=== PATIENT | male | born 1940 | race Caucasian/White ===

== ENCOUNTER 2018-08-24 15:42 | Inpatient (IN) | payer MEDICAID, MEDICARE ==
[~2018-08-24] VITALS: Ht 170.2 cm; Wt 66.2 kg
[~2018-08-24 15:42] MED LIST: AC325T PO; ALB6.8IN; AMLO5TAB2 PO; BUDE6HFA IH; CEFD300C3 PO; CIPR500T78 PO; DULERA; ERGO80004 PO; FEXO180T PO; FISH OIL 1,2001 EAC1 PO; FLC1T PO; GEMF600T3 PO; GMFB600T; IPRATROPIUM; LIDOCAINE PATCH; LISI20TA PO; LISI5TAB14; MULT-608 PO; MULT-974 PO; MULT1TAB53 PO; NITR100C3 PO; RENA VITE; SIMV20TA3 PO; SYMBICORT; TRM50T PO; VITAMIN B PO
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
--- NOTE | 2018-08-24 15:53 | ED GI ---
General Stated Complaint: HTN Source of Information: Patient Exam Limitations: No Limitations History of Present Illness Date Seen by Provider: Aug 24, 2018 Time Seen by Provider: 15:52 Initial Comments The patient is a 77 year old male who was brought to the emergency room by [facility]. EMS reports that they were dispatched for uncontrollable diarrhea, on arrival the the patient home they found him lying in bed covered in fecal matter. The patient reports that he has been in bed for they past 3 weeks unable to get out of bed due to weakness. He reports diarrhea for the past week. Denies abdominal pain, nausea, or vomiting. He reports that he self caths but has not been able to clean his catheters appropriately due to unable to ambulate like normal. He has dried fecal matter on his lower half and his skin is macerated and has breakdown. (See Images) Vital signs are stable on arrival to ED. EMS infused 1000ml of NS in route to the ED. Timing/Duration: Other (3 weeks) Associated Symptoms: Weakness Allergies and Home Medications Allergies Coded Allergies: iodine (Verified Allergy, Unknown, 03/24/07) Home Medications Amlodipine Besylate 5 Mg Tablet, 5 MG PO DAILY, (Reported) Budesonide/Formoterol Fumarate 10.2 Gm Hfa.aer.ad, 160 PUFF IH BID, (Reported) Folic Acid 1 Mg Tablet, 1 MG PO DAILY, (Reported) Multivitamin 1 Each Tablet, 1 EACH PO DAILY Prescribed by: BEAU MANUEL on 12/07/131713 [vitamin B1 tablet] , 1 TAB PO DAILY Prescribed by: BEAU MANUEL on 12/07/131713 Patient Home Medication List Home Medication List Reviewed: Yes Review of Systems Review of Systems Constitutional: see HPI; No chills, No fever; weakness Gastrointestinal: See HPI, Diarrhea Genitourinary: See HPI, Other (requires self caths ) Musculoskeletal: see HPI, muscle weakness Skin: see HPI, other (soft tissue tenderness to inner thighs ) All Other Systems Reviewed Negative Unless Noted: Yes Past Bypcgsn-Dklqys-Jcbizi Hx Past Med/Social Hx: Reviewed Nursing Past Med/Soc Hx Patient Social History Recent Foreign Travel: No Contact w/Someone Who Travel: No Immunizations Up To Date Date of Pneumonia Vaccine: Sep 09, 2012 Date of Influenza Vaccine: Aug 09, 2013 Past Medical History COPD Reproductive Disorders: No Irritable Bowel Chronic Back Pain Recent Skin Changes Family Medical History Reviewed Nursing Family Hx Family history: Hypertension 03 FATHER 03 MOTHER Stroke 03 MOTHER Physical Exam Vital Signs Vital Signs - First Documented 08/24/18 15:42 Temp 99.0 Pulse 124 Resp 18 B/P (MAP) 136/106 (116) Pulse Ox 95 O2 Delivery Room Air Capillary Refill : Height/Weight/BMI Height: 5'8" Weight: 140lbs. 0.0oz. [id number]; BMI Method: General Appearance: WD/WN, no apparent distress Neck: non-tender, full range of motion, supple, normal inspection Respiratory: chest non-tender, lungs clear, normal breath sounds, no respiratory distress, no accessory muscle use Cardiovascular: normal peripheral pulses, regular rate, rhythm, no edema, no gallop, no JVD, no murmur Gastrointestinal: normal bowel sounds, non tender, soft, no organomegaly, no pulsatile mass Extremities: normal range of motion, non-tender, normal inspection, no pedal edema, no calf tenderness, normal capillary refill, pelvis stable Male: normal genitalia Neurologic/Psychiatric: alert, normal mood/affect, oriented x 3 Skin: other (maceration to inner thighs and buttocks. see images) Focused Exam Lactate Level 08/24/18 16:00: Lactic Acid Level 2.30*H Lactic Acid Level Laboratory Tests Test 08/24/18 16:00 Lactic Acid Level 2.30 MMOL/L (0.50-2.00) *H Progress/Results/Core Measures Results/Orders Lab Results Laboratory Tests Test 08/24/18 16:00 08/24/18 16:04 08/24/18 17:28 Range/Units Prothrombin Time 13.9 12.2-14.7 SEC INR Comment 1.1 0.8-1.4 Activated Partial Thromboplast Time 31 24-35 SEC Lactic Acid Level 2.30 *H 0.50-2.00 MMOL/L White Blood Count 8.8 4.3-11.0 10^3/uL Red Blood Count 3.61 L 4.35-5.85 10^6/uL Hemoglobin 12.4 L 13.3-17.7 G/DL Hematocrit 39 L 40-54 % Mean Corpuscular Volume 107 H 80-99 FL Mean Corpuscular Hemoglobin 34 25-34 PG Mean Corpuscular Hemoglobin Concent 32 32-36 G/DL Red Cell Distribution Width 13.1 10.0-14.5 % Platelet Count 170 130-400 10^3/uL Mean Platelet Volume 9.4 7.4-10.4 FL Neutrophils (%) (Auto) 87 H 42-75 % Lymphocytes (%) (Auto) 4 L 12-44 % Monocytes (%) (Auto) 8 0-12 % Eosinophils (%) (Auto) 0 0-10 % Basophils (%) (Auto) 0 0-10 % Neutrophils # (Auto) 7.7 1.8-7.8 X 10^3 Lymphocytes # (Auto) 0.4 L 1.0-4.0 X 10^3 Monocytes # (Auto) 0.7 0.0-1.0 X 10^3 Eosinophils # (Auto) 0.0 0.0-0.3 10^3/uL Basophils # (Auto) 0.0 0.0-0.1 10^3/uL Neutrophils % (Manual) 78 % Lymphocytes % (Manual) 5 % Monocytes % (Manual) 5 % Eosinophils % (Manual) 0 % Basophils % (Manual) 0 % Band Neutrophils 12 % Blood Morphology Comment NORMAL Sodium Level 140 135-145 MMOL/L Potassium Level 3.4 L 3.6-5.0 MMOL/L Chloride Level 103 98-107 MMOL/L Carbon Dioxide Level 24 21-32 MMOL/L Anion Gap 13 5-14 MMOL/L Blood Urea Nitrogen 44 H 7-18 MG/DL Creatinine 1.13 0.60-1.30 MG/DL Estimat Glomerular Filtration Rate > 60 BUN/Creatinine Ratio 39 Glucose Level 130 H 70-105 MG/DL Calcium Level 9.0 8.5-10.1 MG/DL Corrected Calcium 9.5 8.5-10.1 MG/DL Total Bilirubin 0.7 0.1-1.0 MG/DL Aspartate Amino Transf (AST/SGOT) 119 H 5-34 U/L Alanine Aminotransferase (ALT/SGPT) 75 H 0-55 U/L Alkaline Phosphatase 74 40-136 U/L Total Protein 7.2 6.4-8.2 GM/DL Albumin 3.4 3.2-4.5 GM/DL Urine Color YELLOW Urine Clarity VERY CLOUDY H Urine pH 8 5-9 Urine Specific [place] 1.010 L 1.016-1.022 Urine Protein 3+ H NEGATIVE Urine Glucose (UA) NEGATIVE NEGATIVE Urine Ketones NEGATIVE NEGATIVE Urine Nitrite POSITIVE H NEGATIVE Urine Bilirubin NEGATIVE NEGATIVE Urine Urobilinogen NORMAL NORMAL MG/DL Urine Leukocyte Esterase 3+ H NEGATIVE Urine RBC (Auto) 2+ H NEGATIVE Urine RBC 2-5 H /HPF Urine WBC >100 H /HPF Urine Crystals NONE /LPF Urine Bacteria LARGE H /HPF Urine Casts NONE /LPF Urine Mucus NEGATIVE /LPF Urine Culture Indicated YES My Orders Orders - GLORIA MARY Comprehensive Metabolic Panel (08/24/18 15:53) Ua Culture If Indicated (08/24/18 15:53) Saline Lock/Iv-Start (08/24/18 15:53) Cbc With Automated Diff (08/24/18 15:53) Stool Culture (08/24/18 15:53) Fecal Wbc (08/24/18 15:53) C Difficile Ag + Toxin A/B. (08/24/18 15:53) Blood Culture (08/24/18 16:13) Protime With Inr (08/24/18 16:13) Partial Thromboplastin Time (08/24/18 16:13) Saline Lock/Iv-Start (08/24/18 16:13) Lactic Acid Analyzer (08/24/18 16:13) Fentanyl Injection (Sublimaze Injection (08/24/18 16:15) Manual Differential (08/24/18 16:04) Urine Culture (08/24/18 17:28) Ceftriaxone For Iv Use (Rocephin For I (08/24/18 17:45) Medications Given in ED Current Medications Medications Dose Ordered Sig/Terry Route Start Time Stop Time Status Last Admin Dose Admin Ceftriaxone Sodium 1000 mg/ Sodium Chloride 50 ml @ 100 mls/hr ONCE ONCE IV 08/24/18 17:45 08/24/18 18:14 DC 08/24/18 18:25 100 MLS/HR Fentanyl Citrate 25 mcg ONCE ONCE IVP 08/24/18 16:15 08/24/18 16:16 DC 08/24/18 16:37 25 MCG Vital Signs/I&O 08/24/18 15:42 Temp 99.0 Pulse 124 Resp 18 B/P (MAP) 136/106 (116) Pulse Ox 95 O2 Delivery Room Air 08/25/18 00:00 Intake Total 200 ml Balance 200 ml Progress Progress Note : Time: 17:52 Progress Note I have seen and evaluated the patient. I have spoke to Dr. Flannery at this time and have informed him of laboratory findings. He agrees with plans for admission and use of Rocephin for antibiotic coverage. The patient agrees with plans for admission. Wound care consult and manager social responsibility consults were ordered. Departure Communication (Admissions) Time/Spoke to Admitting Phy: 17:52 Dr. Flannery Impression Primary Impression: Urinary tract infection Additional Impressions: Maceration of skin Inability to perform activities of daily living Disposition: ADMITTED INPATIENT Condition: Stable/Unchanged Admissions Decision to Admit Reason: Admit from ER (General) Decision to Admit/Date: Aug 24, 2018 Time/Decision to Admit Time: 17:53 Departure-Patient Inst. Referrals: RADHA SHI MD (PCP/Family) Primary Care Physician Images Full Body/Extremities Full 1 - Tenderness, Other-See Progress Note 2 - Other-See Progress Note Progress Maceration and breakdown. GLORIA MARY Aug 24, 2018 15:53
[2018-08-24 16:13] LABS: BASOPHILS % (AUTO) 0 % (0-10); EOSINOPHILS % (AUTO) 0 % (0-10); HEMATOCRIT 39 % (40-54); HEMOGLOBIN 12.4 G/DL (13.3-17.7); LYMPHOCYTES # (AUTO) 0.4 X 10^3 (1.0-4.0); LYMPHOCYTES % (AUTO) 4 % (12-44); MEAN CORPUSCULAR HEMOGLOBIN 34 PG (25-34); MEAN CORPUSCULAR HGB CONC 32 G/DL (32-36); MEAN CORPUSCULAR VOLUME 107 FL (80-99); MEAN PLATELET VOLUME 9.4 FL (7.4-10.4); MONOCYTES # (AUTO) 0.7 X 10^3 (0.0-1.0); MONOCYTES % (AUTO) 8 % (0-12); NEUTROPHILS # (AUTO) 7.7 X 10^3 (1.8-7.8); NEUTROPHILS % (AUTO) 87 % (42-75); PLATELET COUNT 170 10^3/uL (130-400); RED BLOOD COUNT 3.61 10^6/uL (4.35-5.85); RED CELL DISTRIBUTION WIDTH 13.1 % (10.0-14.5); WHITE BLOOD COUNT 8.8 10^3/uL (4.3-11.0)
[2018-08-24] MEDS ORDERED: fentaNYL INJECTION 100 MCG/2 ML AMP IVP ONE (16:15)
[2018-08-24 16:31] LABS: ALANINE AMINOTRANSFERASE 75 U/L (0-55); ALBUMIN 3.4 GM/DL (3.2-4.5); ALKALINE PHOSPHATASE 74 U/L (40-136); BAND NEUTROPHILS 12 %; BASOPHILS % (MANUAL) 0 %; BILIRUBIN,TOTAL 0.7 MG/DL (0.1-1.0); BUN/CREATININE RATIO 39; CARBON DIOXIDE 24 MMOL/L (21-32); CHLORIDE 103 MMOL/L (98-107); CREATININE SERUM 1.13 MG/DL (0.60-1.30); EOSINOPHILS % (MANUAL) 0 %; GFR ESTIMATED > 60; GLUCOSE 130 MG/DL (70-105); LYMPHOCYTES % (MANUAL) 5 %; MONOCYTES % (MANUAL) 5 %; NEUTROPHILS % (MANUAL) 78 %; POTASSIUM 3.4 MMOL/L (3.6-5.0); RBC MORPH NORMAL; SODIUM 140 MMOL/L (135-145); TOTAL PROTEIN 7.2 GM/DL (6.4-8.2)
[2018-08-24 16:31] LABS: INR 1.1 (0.8-1.4); PROTHROMBIN TIME PATIENT 13.9 SEC (12.2-14.7)
[2018-08-24 17:34] LABS: BILIRUBIN,URINE NEGATIVE (NEGATIVE); CLARITY,URINE VERY CLOUDY; COLOR,URINE YELLOW; GLUCOSE, URINE (UA) NEGATIVE (NEGATIVE); KETONES,URINE NEGATIVE (NEGATIVE); LEUKOCYTE ESTERASE ,URINE 3+ (NEGATIVE); NITRITE,URINE POSITIVE (NEGATIVE); PH,URINE 8 (5-9); PROTEIN,URINE 3+ (NEGATIVE); UROBILINOGEN,URINE NORMAL (NORMAL)
[2018-08-24 17:40] LABS: BACTERIA,URINE LARGE /HPF; WBC,URINE >100 /HPF
[2018-08-24] MEDS ORDERED: cefTRIAXone FOR IV USE 1,000 MG in NS (IVPB) 50 ML IV ONE (17:45)
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
[2018-08-24 19:00] VITALS: BP 130/94
[2018-08-24] MEDS ORDERED: NS IV 1000 ML 1,000 ML ONE (19:10)
[2018-08-24] MEDS: NS IV 1000 ML 1,000 ML IV SCH (19:24)
[2018-08-24] MEDS ORDERED: CATHETER FLUSH 10 ML SYR IV PRN (19:30)
[2018-08-24] MEDS ORDERED: LORazepam INJ 2 MG/ML (ATIVAN) VIAL IM/IV PRN (22:00)
[2018-08-24] MEDS ORDERED: LORazepam 1 MG (ATIVAN) TAB PO PRN (22:00)
[2018-08-24] MEDS: LORazepam INJ 2 MG/ML (ATIVAN) VIAL IV PRN (22:19)
[2018-08-25] VITALS: BP 137/59
[2018-08-25] MEDS: LORazepam INJ 2 MG/ML (ATIVAN) VIAL IV PRN (01:31)
[2018-08-25] MEDS: NS IV 1000 ML 1,000 ML IV SCH ×2 (04:47→11:13)
[2018-08-25 04:48] VITALS: BP 124/82
[2018-08-25] MEDS ORDERED: FLU QUADRIvalent (5+ YOA) 2018-2019 (AFLURIA) 0.5 ML IM ONE (07:30)
[2018-08-25 08:00] VITALS: BP 135/70
[2018-08-25] MEDS: cefTRIAXone 1 GM/NS 50 ML IVPB IV SCH ×2 (08:11)
[2018-08-25 08:20] LABS: BASOPHILS % (AUTO) 0 % (0-10); EOSINOPHILS # (AUTO) 0.1 10^3/uL (0.0-0.3); EOSINOPHILS % (AUTO) 2 % (0-10); HEMATOCRIT 32 % (40-54); HEMOGLOBIN 10.7 G/DL (13.3-17.7); LYMPHOCYTES # (AUTO) 0.7 X 10^3 (1.0-4.0); LYMPHOCYTES % (AUTO) 12 % (12-44); MEAN CORPUSCULAR HEMOGLOBIN 36 PG (25-34); MEAN CORPUSCULAR HGB CONC 33 G/DL (32-36); MEAN CORPUSCULAR VOLUME 108 FL (80-99); MEAN PLATELET VOLUME 9.2 FL (7.4-10.4); MONOCYTES # (AUTO) 0.7 X 10^3 (0.0-1.0); MONOCYTES % (AUTO) 12 % (0-12); NEUTROPHILS # (AUTO) 4.5 X 10^3 (1.8-7.8); NEUTROPHILS % (AUTO) 74 % (42-75); PLATELET COUNT 134 10^3/uL (130-400); RED CELL DISTRIBUTION WIDTH 12.8 % (10.0-14.5); WHITE BLOOD COUNT 6.1 10^3/uL (4.3-11.0)
[2018-08-25 08:43] LABS: ALANINE AMINOTRANSFERASE 48 U/L (0-55); ALBUMIN 2.9 GM/DL (3.2-4.5); ALKALINE PHOSPHATASE 58 U/L (40-136); BILIRUBIN,TOTAL 0.5 MG/DL (0.1-1.0); BUN/CREATININE RATIO 31; CALCIUM 8.1 MG/DL (8.5-10.1); CARBON DIOXIDE 19 MMOL/L (21-32); CHLORIDE 112 MMOL/L (98-107); GFR ESTIMATED > 60; GLUCOSE 103 MG/DL (70-105); POTASSIUM 3.2 MMOL/L (3.6-5.0); SODIUM 142 MMOL/L (135-145); TOTAL PROTEIN 5.9 GM/DL (6.4-8.2)
[2018-08-25] MEDS ORDERED: HYDR-4196 PO (09:41)
[2018-08-25] MEDS ORDERED: IBUP-30 PO (09:41)
[2018-08-25] MEDS ORDERED: POTASSIUM CHLORIDE INJ 20 MEQ in NS IV 1000 ML 1,000 ML IV SCH (11:16)
--- NOTE | 2018-08-25 11:16 | History & Physical-Hospitalist ---
History of Present Illness HPI/Chief Complaint CC: Sepsis with UTI HPI: This is a 77-year-old white male of Dr. Frye who presented to the ER with altered mental status and not feeling well. He was found to have a UTI with sepsis in addition to right hip ulcerations that were caused by laying in his bowel movement for several days. Apparently he lives at home alone with his dogs and cats and intends to return to home but he will need strengthening and optimized prior to returning to that previous situation. He reports that as long as he definitely on his right side he has no pain. I have reconciled all of his home medications that don't include much except for hydrocodone and ibuprofen. Source: patient, RN/MD Exam Limitations: no limitations Date Seen 08/25/18 Time Seen by a Provider: 10:00 Attending Physician Aj Flannery MD PCP Eder Frye MD Referring Physician Date of Admission Aug 24, 2018 at 18:05 Home Medications & Allergies Home Medications Reviewed patient Home Medication Reconciliation performed by pharmacy medication reconciliations metal technician and/or nursing. Patients Allergies have been reviewed. Allergies Allergies Coded Allergies iodine (Verified Allergy, Unknown, 03/24/07) Past Limowvx-Quxxfi-Gdhagc Hx Past Med/Social Hx: Reviewed Nursing Past Med/Soc Hx, Reviewed and Corrections made Patient Social History Marrital Status: single Employed/Student: retired Alcohol Use: Regular Use Alcohol Beverage of Choice: [place] Recreational Drug Use: No Smoking Status: Former Smoker Former Smoker, Quit: Aug 24, 1978 Type Used: Cigarettes Physical Abuse Screen: No Sexual Abuse: No Recent Foreign Travel: No Contact w/other who traveled: No Recent Hopitalizations: Yes Recent Infectious Disease Expo: No Immunizations Up To Date Date of Pneumonia Vaccine: Sep 09, 2012 Date of Influenza Vaccine: Aug 09, 2013 Past Medical History Surgeries: Orthopedic Cardiac: Hypertension Reproductive: No Genitourinary: Neurogenic Bladder Gastrointestinal: Irritable Bowel Musculoskeletal: Chronic Back Pain Skin/Integumentary: Recent Skin Changes History of Blood Disorders: No Family History Reviewed Nursing Family Hx Family history: Hypertension 03 FATHER 03 MOTHER Stroke 03 MOTHER Hypertension Review of Systems Constitutional: see HPI, chills, fever, weakness EENTM: no symptoms reported Respiratory: no symptoms reported Cardiovascular: no symptoms reported Gastrointestinal: no symptoms reported Genitourinary: no symptoms reported Musculoskeletal: joint pain Skin: no symptoms reported Psychiatric/Neurological: No Symptoms Reported All Other Systems Reviewed Negative Unless Noted: Yes Physical Exam Physical Exam Vital Signs Vital Signs - First Documented 08/24/18 15:42 Temp 99.0 Pulse 124 Resp 18 B/P (MAP) 136/106 (116) Pulse Ox 95 O2 Delivery Room Air Capillary Refill : Less Than 3 Seconds Height, Weight, BMI Height: 5'7.00" Weight: 146lbs. 0.2oz. [id number]; 22.9 BMI Method:Estimated General Appearance: No Apparent Distress, WD/WN, Chronically ill Eyes: Bilateral Eye Normal Inspection, Bilateral Eye PERRL HEENT: PERRL/EOMI, TMs Normal, Normal ENT Inspection, Pharynx Normal Neck: Full Range of Motion, Normal Inspection, Non Tender, Supple, Carotid Bruit Respiratory: Chest Non Tender, Lungs Clear, Normal Breath Sounds, No Accessory Muscle Use, No Respiratory Distress Cardiovascular: Regular Rate, Rhythm, No Edema, No Gallop, No JVD, No Murmur, Normal Peripheral Pulses Gastrointestinal: Normal Bowel Sounds, No Organomegaly, No Pulsatile Mass, Non Tender, Soft Back: Normal Inspection, No CVA Tenderness, No Vertebral Tenderness Extremity: Normal Capillary Refill, Normal Inspection, Normal Range of Motion, Non Tender, No Calf Tenderness, No Pedal Edema Neurologic/Psychiatric: Alert, Oriented x3, No Motor/Sensory Deficits, Depressed Affect Skin: Normal Color, Warm/Dry Lymphatic: No Adenopathy Results Results/Procedures Labs Laboratory Tests 08/24/18 16:04 08/25/18 08:10 Patient resulted labs reviewed. Assessment/Plan Admission Diagnosis Assessment: Sepsis UTI Severe debility Decubitus ulcers of the right hip region due to laying in bowel movement for several days Poor social situation Plan: Home meds IV antibiotics Follow up on urine culture Pain control Admission Status: Inpatient Order (span 2 midnights) Reason for Inpatient Admission: Sepsis with UTI will require IV abx and fluids for 3 days Diagnosis/Problems Diagnosis/Problems (1) Urinary tract infection Status: Acute (2) Inability to perform activities of daily living Status: Acute (3) Maceration of skin Status: Acute (4) Alcohol abuse Status: Chronic (5) Sepsis Status: Resolved Clinical Quality Measures DVT/VTE Risk/Contraindication: Risk Factor Score Per Nursin RFS Level Per Nursing on Admit: 4+=Very High BRADFORD,MERCEDES DO Aug 25, 2018 11:16
[2018-08-25] MEDS ORDERED: NON-FORMULARY MEDICATION 1 EA EA (Ibuprofen (Advil) 400 MG) PO PRN (11:30)
[2018-08-25] MEDS ORDERED: KCL 20 MEQ TAB (K-DUR) PO NR (11:30)
[2018-08-25] MEDS ORDERED: NON-FORMULARY MEDICATION 1 EA EA (Hydrocodone/Acetaminophen (Norco 10-325 Tablet) 1 TAB) PO PRN (11:30)
[2018-08-25] MEDS: ENOXAPARIN 40 MG/0.4 ML (LOVENOX) SYR SC SCH (11:42)
[2018-08-25] MEDS: NS W/KCL 20 MEQ/L 1,000 ML IV SCH ×2 (11:43→18:24)
[2018-08-25] MEDS ORDERED: HYDROcodone/APAP 10 MG/325 MG (LORTAB) TAB PO PRN (11:45)
[2018-08-25] MEDS ORDERED: IBUPROFEN TABLET 200 MG TAB PO PRN (11:45)
--- NOTE | 2018-08-25 11:46 | Physical Therapy Evaluation ---
PT Evaluation-General Medical Diagnosis Admission Date Aug 24, 2018 at 18:05 Medical Diagnosis: UTI, Sepsis Onset Date: Aug 24, 2018 Therapy Diagnosis Therapy Diagnosis: weakness Height/Weight Height (Feet): 5 Height (Inches): 7.00 Weight (Pounds): 146 Weight (Ounces): 0.2 Precautions Precautions/Isolations: Seizure, Fall Prevention, Standard Precautions, Pressure Ulcer potential c-diff Weight Bear Status Right Lower Extremity: Right Full Weight Bearing Left Lower Extremity: Left Full Weight Bearing Referral Physician: Aj Flannery Reason for Referral: Evaluation/Treatment, Strengthening Medical History Pertinent Medical History: Back Injury, COPD Current History Patient has a 3 week history of progressive weakness resulting being bed bound. During this time patient developed uncontrollable diarrhea with resultant skin breakdown. Social History Home: Single Level Current Living Status: Alone Prior/Core FIM Prior Level of Function Functional [place] Measure 0=Not Assessed/NA 4=Minimal Assistance 1=Total Assistance 5=Supervision or Setup 2=Maximal Assistance 6=Modified [place] 3=Moderate Assistance 7=Complete IndependenceIRFPAI Quality Coding Scale 6 Independent with activity with or without an assistive device 5 Patient requires set up or clean up by helper. Patient completes activity by themselves 4 Supervision or touching assist (CGA). Hugo provide cues , steadying assist 3 The helper provides less than half the effort to complete the activity 2 The helper provides more than half the effort to complete the activity 1 Dependent. The helper does all the effort to complete an activity 7 Patient refused to complete or attempt activity 9 The patient did not perform the activity before the current illness or injury 88 Not attempted due to Medical conditions or safety concerns Bed Mobility: 6 Transfers (B,C,W/C) (FIM): 6 Gait: 6 Stairs: 6 pt reports he did get around on his own but was slow PT Evaluation-Current Subjective Pt reports he is starting to feel stronger but is still weak and shaky. He admits that he needs to get stronger and is willing to work with therapy to get there. He desires to return to home. Objective Patient Orientation: Person, Place, Time Problem Solving: Good Attachments: [place]ah Catheter ROM/Strength ROM Upper Extremities WFL ROM Lower Extremities WFL Strength Upper Extremities gross 4/5 Strength Lower Extremities gross 3+/5 Integumentary/Posture Integumentary skin breakdown on both lower glutes and inner thighs Bowel Incontinence: Yes Sensory Vision: Functional Hearing: Functional Transfers Functional [place] Measure 0=Not Assessed/NA 4=Minimal Assistance 1=Total Assistance 5=Supervision or Setup 2=Maximal Assistance 6=Modified [place] 3=Moderate Assistance 7=Complete [place] Transfers (B, C, W/C) (FIM): 4 Scootin Rollin Supine to/from Sit: 5 Sit to/from Stand: 5 Pt able to stand and move in bed with verbal cuing. He is shaking in the upper and lower extremities due to weakness. Gait Mode of Locomotion: Walk Anticipated Mode of Locomotion: Walk Gait (FIM): 2 Distance (FIM): 1=up to 49 ft Distance: 25ft Gait Level of Assist: 4 Gait Persons Needed: 1 Gait Assistive Device: FWW Comments/Gait Description shaky Balance Sitting Static: Fair Sitting Dynamic: Fair Standing Static: Fair Standing Dynamic: Poor Special Test Comments requires UE assist for standing dynamic balance Assessment/Needs Pt is weak due to prolonged inactivity. He has fair baseline strength and is motivated to make gains. Pt will benefit from PT to promote improved strength and functional mobility. Rehab Potential: Good Post Rehab Potential-Barriers: uncontrolled diarrhea limits activity PT [facility] Goals Needle Loom Tender Goals PT [facility] Goals Time Frame: Sep 01, 2018 Transfers (B,C,W/C) (FIM): 6 Gait (FIM): 6 Gait distance (FIM): 3=150 ft Distance: 150 Gait Level of Assist: 6 Gait Assistive Device: FWW # of Steps: 3 Stairs Level Of Assist: 6 PT Plan Problem List Problem List: Activity Tolerance, Functional Strength, Balance, Gait, Transfer , Bed Mobility Treatment/Plan Treatment Plan: Continue Plan of Care Treatment Plan: Bed Mobility, Functional Activity Ana, Functional Strength, Gait, Safety, Therapeutic Exercise, Transfers Treatment Duration: Sep 01, 2018 Frequency: 6 times per week Estimated Hrs Per Day: .25 hour per day Patient and/or Family Agrees t: Yes Safety Risks/Education Patient Education: Gait Training, Steps Teaching Recipient: Patient Time/GCodes Time In: 1100 Time Out: 1130 Total Billed Treatment Time: 30 Total Billed Treatment visit, eval moderate complexity 30 JOAQUIN DEVI PT Aug 25, 2018 11:46
[2018-08-25 12:00] VITALS: BP 141/96
[2018-08-25 16:20] VITALS: BP 143/91
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
[2018-08-25 19:30] VITALS: BP 123/83
[2018-08-26 00:20] VITALS: BP 129/86
[2018-08-26] MEDS: NS W/KCL 20 MEQ/L 1,000 ML IV SCH ×2 (02:12→10:25)
[2018-08-26 04:23] VITALS: BP 135/79
[2018-08-26 06:18] LABS: BASOPHILS % (AUTO) 0 % (0-10); EOSINOPHILS # (AUTO) 0.2 10^3/uL (0.0-0.3); EOSINOPHILS % (AUTO) 4 % (0-10); HEMATOCRIT 30 % (40-54); HEMOGLOBIN 9.4 G/DL (13.3-17.7); LYMPHOCYTES # (AUTO) 0.6 X 10^3 (1.0-4.0); LYMPHOCYTES % (AUTO) 17 % (12-44); MEAN CORPUSCULAR HEMOGLOBIN 34 PG (25-34); MEAN CORPUSCULAR HGB CONC 31 G/DL (32-36); MEAN CORPUSCULAR VOLUME 110 FL (80-99); MEAN PLATELET VOLUME 9.3 FL (7.4-10.4); MONOCYTES # (AUTO) 0.5 X 10^3 (0.0-1.0); MONOCYTES % (AUTO) 13 % (0-12); NEUTROPHILS # (AUTO) 2.5 X 10^3 (1.8-7.8); NEUTROPHILS % (AUTO) 66 % (42-75); PLATELET COUNT 135 10^3/uL (130-400); RED BLOOD COUNT 2.74 10^6/uL (4.35-5.85); WHITE BLOOD COUNT 3.8 10^3/uL (4.3-11.0)
[2018-08-26 06:52] LABS: ALANINE AMINOTRANSFERASE 34 U/L (0-55); ALBUMIN 2.5 GM/DL (3.2-4.5); ALKALINE PHOSPHATASE 59 U/L (40-136); BILIRUBIN,TOTAL 0.4 MG/DL (0.1-1.0); BUN/CREATININE RATIO 17; CALCIUM 7.5 MG/DL (8.5-10.1); CARBON DIOXIDE 19 MMOL/L (21-32); CHLORIDE 114 MMOL/L (98-107); CREATININE SERUM 0.83 MG/DL (0.60-1.30); GFR ESTIMATED > 60; GLUCOSE 102 MG/DL (70-105); POTASSIUM 3.7 MMOL/L (3.6-5.0); SODIUM 141 MMOL/L (135-145); TOTAL PROTEIN 5.3 GM/DL (6.4-8.2)
[2018-08-26] MEDS ORDERED: KCL 20 MEQ TAB (K-DUR) PO SCH (07:00)
[2018-08-26 08:00] VITALS: BP 138/83
[2018-08-26] MEDS: cefTRIAXone 1 GM/NS 50 ML IVPB IV SCH ×2 (08:47)
[2018-08-26] MEDS: ENOXAPARIN 40 MG/0.4 ML (LOVENOX) SYR SC SCH (10:33)
[2018-08-26] MEDS ORDERED: CEFD300C3 PO (10:58)
[2018-08-26] MEDS ORDERED: ENOX40DI8 SC (10:58)
--- NOTE | 2018-08-26 11:01 | Discharge Summary-Hospitalist ---
Diagnosis/Chief Complaint Date of Admission Aug 24, 2018 at 18:05 Date of Discharge Discharge Date: Aug 26, 2018 Admission Diagnosis Assessment: Sepsis UTI Severe debility Decubitus ulcers of the right hip region due to laying in bowel movement for several days Poor social situation Plan: Home meds IV antibiotics Follow up on urine culture Pain control Discharge Diagnosis (1) Urinary tract infection Status: Acute (2) Inability to perform activities of daily living Status: Acute (3) Maceration of skin Status: Acute (4) Alcohol abuse Status: Chronic (5) Sepsis Status: Resolved Discharge Summary Discharge Physical Exam Allergies: Coded Allergies: iodine (Verified Allergy, Unknown, 03/24/07) Vitals & I&Os Vital Signs Date Time Temp Pulse Resp B/P (MAP) Pulse Ox O2 Delivery O2 Flow Rate FiO2 08/26/18 11:26 79 16 138/83 97 Room Air 08/26/18 08:00 99.5 General Appearance: No Apparent Distress, WD/WN, Chronically ill Respiratory: Chest Non Tender, Lungs Clear, Normal Breath Sounds, No Accessory Muscle Use, No Respiratory Distress Cardiovascular: Regular Rate, Rhythm, No Edema, No Gallop, No JVD, No Murmur, Normal Peripheral Pulses Neurologic/Psychiatric: Alert, Oriented x3, No Motor/Sensory Deficits, Depressed Affect Hospital Course Hospital course: Patient was admitted placed on empiric antibiotics for acute on recurrent UTI due to neurogenic bladder and Yeboah catheter was placed and kept in place. Alcohol abuse noted he was placed on protocol. Overall patient had significant poor living conditions he was found to be in need of strengthening in inpatient rehabilitation graciously accepted the patient into the program to strengthen gain confidence and return home back to his pets after a short stay. We'll follow up on urine culture and monitor patient closely in the meantime. Labs (last 24 hrs) Microbiology 08/24/18 Blood Culture - Preliminary, Resulted No growth 08/24/18 Urine Culture - Final, Complete Escherichia coli Escherichia coli#2 Proteus mirabilis Patient resulted labs reviewed. Pending Labs Discussion & Recommendations Discharge Planning: <30 minutes discharge planning Discharge Home Medications: Active Scripts Active Reported [place] 10-325 Tablet (Hydrocodone/Acetaminophen) 1 Each Tablet 1 Tab PO Q4H PRN LAST FILLED #February Advil (Ibuprofen) 200 Mg Tablet 200-400 Mg PO Q6H PRN Instructions to patient/family Please see electronic discharge instructions given to patient. Clinical Quality Measures DVT/VTE Risk/Contraindication: Risk Factor Score Per Nursin RFS Level Per Nursing on Admit: 4+=Very High MERCEDES BRADFORD DO Aug 26, 2018 11:01
[2018-08-26 11:26] VITALS: BP 138/83
[2018-08-26] MEDS ORDERED: ZINC OXIDE 16% OINT (BUTT PASTE) 113 GM TUBE TOP PRN (13:00)
--- NOTE | 2018-08-30 13:09 | Physician Query Clarification ---
PQ-Further Specificity Admission/Discharge Admission Date: Aug 24, 2018 at 18:05 Discharge Date: Aug 26, 2018 at 11:20 The medical record reflects the following clinical scenario: History/Risk Factors: Sepsis/UTI Laying in bowel movement for several days. Clinical Findings: Decubitus ulcers of right hip region(maceration) Treatment: Zinc oxide-Butt paste and nursing care. Question: Can you further specify the stage of decubitus ulcer of the right hip per the clinical indicators above? Please document below. 1. 2. 3. Other, with explanation of the clinical findings. 4. Clinically undetermined, no explanation for the clinical findings. PHYSICIAN RESPONSE Can you specify per above: 1 In responding to this query, please exercise your independent professional judgment. The purpose of this communication is to more accurately reflect the complexity of your patients condition. The fact that a question is asked does not imply that any particular answer is desired or expected. Thank you for your timely response to this clarification. Requestors name: Alfreda Felipe [facility], [facility] Phone # ext [phone] or [phone] THIS PHYSICIAN QUERY FORM IS A PERMANENT PART OF THE MEDICAL RECORD ALFREDA FELIPE Aug 30, 2018 13:09 MERCEDES BRADFORD DO Aug 30, 2018 15:27
== END 2018-08-26 11:20 | DRG 872 ==
LOC: EDUNIT# 15:42 → ER 15:44 → 4TH 18:05
PROVIDERS: ADMIT Internal Medicine; ATTEND Internal Medicine
DX: A41.9 Sepsis, unspecified organism (principal); N39.0 Urinary tract infection, site not specified; R19.7 Diarrhea, unspecified; L89.211 Pressure ulcer of right hip, stage 1; N31.9 Neuromuscular dysfunction of bladder, unspecified; M62.81 Muscle weakness (generalized); I10 Essential (primary) hypertension; J44.9 Chronic obstructive pulmonary disease, unspecified; Z23 Encounter for immunization; K58.9 Irritable bowel syndrome, unspecified; M54.9 Dorsalgia, unspecified; F10.10 Alcohol abuse, uncomplicated; Z87.891 Personal history of nicotine dependence; Z60.2 Problems related to living alone
CPT/HCPCS: 36415; 51702; 80053; 81000; 83605; 85007; 85025; 85027; 85610; 85730; 87040; 87077; 87088; 87186; 90686; 96365; 96375

== ENCOUNTER 2018-08-26 11:00 | Inpatient (IN) | payer MEDICARE ==
[~2018-08-26] VITALS: Ht 170.2 cm; Wt 69.9 kg
[~2018-08-26 11:00] MED LIST changes: +ENOX40DI8 SC; +HYDR-4196 PO; +IBUP-30 PO
[2018-08-26] MEDS ORDERED: LORazepam 1 MG (ATIVAN) TAB PO PRN (12:00)
[2018-08-26] MEDS ORDERED: CATHETER FLUSH 10 ML SYR IV PRN (12:00)
[2018-08-26] MEDS ORDERED: LORazepam INJ 2 MG/ML (ATIVAN) VIAL IM/IV PRN (12:00)
[2018-08-26] MEDS ORDERED: ENOXAPARIN 40 MG/0.4 ML (LOVENOX) SYR SC SCH (12:00)
--- NOTE | 2018-08-26 12:37 | Physical Therapy Evaluation ---
PT Evaluation-General Medical Diagnosis Admission Date Aug 26, 2018 at 11:20 Medical Diagnosis: UTI, Sepsis Onset Date: Aug 24, 2018 Therapy Diagnosis Therapy Diagnosis: weakness; abn gait Height/Weight Height (Feet): 5 Height (Inches): 7.00 Weight (Pounds): 146 Weight (Ounces): 0.2 Precautions Precautions/Isolations: Standard Precautions Weight Bear Status Right Lower Extremity: Right Full Weight Bearing Left Lower Extremity: Left Full Weight Bearing Referral Physician: Jimmy Reason for Referral: Evaluation/Treatment Medical History Pertinent Medical History: Alcoholism, Back Injury, COPD Current History Pt admitted with AMS, UTI and sepsis; also diagnosed with rhabdo. Pt's friend reports a recent decline in functional mobility and ability to care for himself. Reports decreased out of bed time, decreased food intake and increased alcohol consumption. Reviewed History: Yes Social History Home: Single Level (mobile home) Current Living Status: Alone (pt has friends that check in on him as needed) Entry Into Home: Stairs With Railing PT Steps Into Home: 3 Pt lives in a trailer home that he rents and currently does not have electricity. Prior/Core FIM Prior Level of Function Functional [place] Measure 0=Not Assessed/NA 4=Minimal Assistance 1=Total Assistance 5=Supervision or Setup 2=Maximal Assistance 6=Modified [place] 3=Moderate Assistance 7=Complete IndependenceIRFPAI Quality Coding Scale 6 Independent with activity with or without an assistive device 5 Patient requires set up or clean up by helper. Patient completes activity by themselves 4 Supervision or touching assist (CGA). [place] provide cues , steadying assist 3 The helper provides less than half the effort to complete the activity 2 The helper provides more than half the effort to complete the activity 1 Dependent. The helper does all the effort to complete an activity 7 Patient refused to complete or attempt activity 9 The patient did not perform the activity before the current illness or injury 88 Not attempted due to Medical conditions or safety concerns Bed Mobility: 7 Transfers (B,C,W/C) (FIM): 7 Gait: 7 Stairs: 6 Prior Equipment Used: FWW Pt lives alone and has friends that check in on him. He is indep in his home and able to walk short distances in the community. [facility]. PT Evaluation-Current Subjective Agreeable to PT. Reports he is cold and wants to return to bed. Pain Numeric Pain Scale: 0-No Pain Location: No Pain Reported Pt/Family Goals His goal is to return home and care for himself. Objective Patient Orientation: Person, Place, Time, Situation Problem Solving: Fair ROM/Strength ROM Lower Extremities WFL Strenght Lower Extremities B LE strength is grossly 3+/5 Integumentary/Posture Integumentary Refer to nursing notes. Bowel Incontinence: No Bladder Incontinence: Yeboah Cath (pt self caths at home. ) Posture rounded shoulders and flexed at the hips. Neuromuscular (Tone, Coordination, Reflexes) Intact and functional Sensory Vision: Functional Hearing: Functional Hand Dominance: Right Sensation Right Lower Extremit: Intact Sensation Left Lower Extremity: Intact Transfers Functional [place] Measure 0=Not Assessed/NA 4=Minimal Assistance 1=Total Assistance 5=Supervision or Setup 2=Maximal Assistance 6=Modified [place] 3=Moderate Assistance 7=Complete IndependenceIRFPAI Quality Coding Scale 6 Independent with activity with or without an assistive device 5 Patient requires set up or clean up by helper. Patient completes activity by themselves 4 Supervision or touching assist (CGA). [place] provide cues , steadying assist 3 The helper provides less than half the effort to complete the activity 2 The helper provides more than half the effort to complete the activity 1 Dependent. The helper does all the effort to complete an activity 7 Patient refused to complete or attempt activity 9 The patient did not perform the activity before the current illness or injury 88 Not attempted due to Medical conditions or safety concerns Transfers (B, C, W/C) (FIM): 3 Scootin Rollin Roll Left to Right (QC): 4 Supine to/from Sit: 3 (assist with both legs) Sit to/from Stand: 3 (mod assist with skilled cues for hand placement) Sit to Lying (QC): 3 Lying to Sitting/Side of Bed(Q: 4 Sit to Stand (QC): 3 Chair/Mbd-im-Ikims Xfer(QC): 4 Car Transfer (QC): 3 (assist with both legs) Pt is unsteady with upright mobility Gait Does the Patient Walk?: Yes Mode of Locomotion: Walk Anticipated Mode of Locomotion: Walk Gait (FIM): 2 Distance (FIM): 5=688-24 ft Walk 10 feet (QC): 4 Walk 50 ft with 2 Turns(QC): 4 Walk 150 ft (QC): 88 Walking 10ft/uneven surface-QC: 4 Distance: 125 ft Gait Level of Assist: 4 (close CGA for safety) Gait Persons Needed: 1 Gait Assistive Device: FWW Comments/Gait Description Lacks full extension of hips and knees, decreased step length and decreased speed. unsteady, requires CGA for safety. Wheelchair Training Does the Pt Use a Wheelchair?: No Stairs Stairs (FIM): 2 #of Steps: 1 Level of Assist: 4 1 Step (curb) (QC): 4 4 Steps (QC): 88 Assistive Device: Walker 12 Steps (QC): 88 Balance Sitting Static: Fair Sitting Dynamic: Fair Standing Static: Fair Standing Dynamic: Fair Picking up an Object (QC): 88 (unsafe to attempt) Treatment Safety training and work on functional transfers with focus on sequencing and hand placement for safety. Assessment/Needs Pt presents post acute hospital stay due to decline in functional mobility and ability to care for himself at home. He was admitted with sepsis/UTI. He has been transferred to this unit for skilled therapy intervention to work on functional strength and mobility to allow him to return home as before and care for himself. Rehab Potential: Fair Post Rehab Potential-Barriers: alcohol abuse, poor living situation PT Short Term Goals Short Term Goals Time Frame: Sep 02, 2018 Transfers (B,C,W/C) (FIM): 4 Gait (FIM): 4 Distance (FIM): 3=150 ft Gait Assistive Device: FWW PT Correction Goals Car Wash Attendant Goals PT Correction Goals Time Frame: Sep 11, 2018 Transfers (B,C,W/C) (FIM): 7 Sit to Lying (QC): 6 Lying-Sitting on Side/Bed(QC): 6 Sit to Stand (QC): 6 Roll Left to Right (QC): 6 Chair/Gay-ee-Qndcl Xfer(QC): 6 Car Transfer (QC): 6 Does the Patient Walk: Yes Gait (FIM): 6 Gait distance (FIM): 3=150 ft Walk 10 feet (QC): 6 Walk 10ft-Uneven Surface(QC): 6 Walk 50ft with 2 Turns (QC): 6 Walk 150 ft (QC): 6 Gait Assistive Device: FWW Does the Pt use WC or Scooter?: No Stairs (FIM): 5 # of Steps: 4 1 Step (curb) (QC): 6 4 Steps (QC): 6 12 Steps (QC): 88 Picking up an Object (QC): 4 Goal is for patient to be mod indep to indep in his home and care for himself. PT Plan Problem List Problem List: Activity Tolerance, Functional Strength, Safety, Balance, Gait, Transfer, Bed Mobility Treatment/Plan Treatment Plan: Continue Plan of Care Treatment Plan: Bed Mobility, Education, Functional Activity Ana, Functional Strength, Group Therapy, Gait, Safety, Therapeutic Exercise, Transfers Treatment Duration: Sep 11, 2018 Frequency: At least 5 of 7 days/Wk (IRF) Estimated Hrs Per Day: 1.5 hours per day Patient and/or Family Agrees t: Yes Safety Risks/Education Patient Education: Transfer Techniques, Safety Issues Teaching Recipient: Patient Teaching Methods: Demonstration, Discussion Response to Teaching: Reinforcement Needed Discharge Recommendations Therapy D/C Recommendations: Physical Therapy Home Care Time/GCodes Time In: 1140 Time Out: 1220 Total Billed Treatment Time: 40 Total Billed Treatment visit EVM 15 FA 25 KEITH PAREKH PT Aug 26, 2018 12:37
[2018-08-26 13:00] VITALS: BP 146/99
--- OUTSIDE RECORDS SUMMARY | 2018-08-26 13:10 | XMS REPORT | Continuity of Care Document ---
Author Author [facility] Organization [facility] Address Unknown Phone Unavailable Allergies Active Description Code Type Severity Reaction Onset Reported/Identified Relationship to Patient Clinical Status Yes iodine [id number] Drug Allergy Unknown N/A 03/24/2007 Medications There [...] urinalysis with reflex to culture YES NRG Serum or plasma lactate measurement (moles/volume) - 08/24/18 19:00 Serum or plasma lactate measurement (moles/volume) 1.47 mmol/L 0.50-2.00 Encounters ACCT No. Visit Date/Time Discharge Status Pt. Type Provider Facility Loc./Unit Complaint [id number] 01/06/2014 20:19:00 01/06/2014 22:12:00 DIS Emergency TOAN JULIAN [facility] ER [id number] 12/07/2013 16:32:00 12/08/2013 17:13:00 DIS Inpatient RADHA SHI MD [facility] SURGICAL [id number] 12/07/2013 11:02:00 12/07/2013 12:41:00 DIS Outpatient JULIAN JOYA DO [facility] ER BLEEDING FROM PENIS [id number] 11/23/2013 12:10:00 11/23/2013 23:59:59 CLS Outpatient RADHA SHI MD [facility] RAD [id number] 10/29/2013 13:15:00 10/29/2013 23:59:59 CLS Outpatient TYLER AMIN MD [facility] GLC [id number] 09/29/2013 16:14:00 09/30/2013 19:21:00 DIS Inpatient RADHA SHI MD [facility] ICU [id number] 08/24/2018 18:05:00 ACT Inpatient OSVALDO WADDELL MD [facility] 4TH UTI, SEPSIS, MACERATION OF SKIN, [id number] 07/13/2012 10:57:00 Document Registration [id number] 04/01/2012 21:12:00 Document Registration [id number] 06/25/2010 06:36:00 Document Registration [id number] 05/06/2010 09:46:00 Document Registration [id number] 05/02/2010 17:18:00 Document Registration [id number] 05/02/2010 16:40:00 Document Registration [id number] 02/04/2010 08:28:00 Document Registration [id number] 05/13/2018 16:09:47 05/13/2018 23:59:59 CLS Outpatient
[2018-08-26] MEDS: ZINC OXIDE 16% OINT (BUTT PASTE) 113 GM TUBE TOP SCH ×2 (14:18→21:14)
--- NOTE | 2018-08-26 14:58 | Physical Therapy Daily Note ---
PT Daily Note-Current Subjective Pt expresses that he is tired and really wants to lie down. Transfers Functional [place] Measure 0=Not Assessed/NA 4=Minimal Assistance 1=Total Assistance 5=Supervision or Setup 2=Maximal Assistance 6=Modified [place] 3=Moderate Assistance 7=Complete IndependenceIRFPAI Quality Coding Scale 6 Independent with activity with or without an assistive device 5 Patient requires set up or clean up by helper. Patient completes activity by themselves 4 Supervision or touching assist (CGA). [place] provide cues , steadying assist 3 The helper provides less than half the effort to complete the activity 2 The helper provides more than half the effort to complete the activity 1 Dependent. The helper does all the effort to complete an activity 7 Patient refused to complete or attempt activity 9 The patient did not perform the activity before the current illness or injury 88 Not attempted due to Medical conditions or safety concerns Weight Bearing Right Lower Extremity: Right Full Weight Bearing Left Lower Extremity: Left Full Weight Bearing Treatments Treatment consisted of co treat with OT due to level of cues required and skill of 2 clinicians educate and promote functional mobility. Pt ambulated x 120 ft with FWW with CGA and OT addressing safety and UE strength activities. Pt worked on UE strength activities with theraband as PT addressed core strength and static and dynamic balance activities at EOB. Education on ARU expectations and what to expect with daily schedule. Pt verbalized understanding. Assessment Pt fatigued this date and had some difficulty completing full therapy time. PT Short Term Goals Short Term Goals Time Frame: Sep 02, 2018 Transfers (B,C,W/C) (FIM): 4 Gait (FIM): 4 Distance (FIM): 3=150 ft Gait Assistive Device: FWW PT Retirement Goals Lounge Car Attendant Goals PT Retirement Goals Time Frame: Sep 11, 2018 Transfers (B,C,W/C) (FIM): 7 Sit to Lying (QC): 6 Lying-Sitting on Side/Bed(QC): 6 Sit to Stand (QC): 6 Rollin Roll Left to Right (QC): 6 Chair/Lya-hb-Brmfn Xfer(QC): 6 Car Transfer (QC): 6 Does the Patient Walk: Yes Gait (FIM): 6 Gait distance (FIM): 3=150 ft Walk 10 feet (QC): 6 Walk 10ft-Uneven Surface(QC): 6 Walk 50ft with 2 Turns (QC): 6 Walk 150 ft (QC): 6 Gait Assistive Device: FWW Does the Pt use WC or Scooter?: No Stairs (FIM): 5 # of Steps: 4 1 Step (curb) (QC): 6 4 Steps (QC): 6 12 Steps (QC): 88 Picking up an Object (QC): 4 PT Plan Problem List Problem List: Activity Tolerance, Functional Strength, Safety, Balance, Gait, Transfer, Bed Mobility Treatment/Plan Treatment Plan: Continue Plan of Care Treatment Plan: Bed Mobility, Education, Functional Activity Ana, Functional Strength, Group Therapy, Gait, Safety, Therapeutic Exercise, Transfers Treatment Duration: Sep 11, 2018 Frequency: At least 5 of 7 days/Wk (IRF) Estimated Hrs Per Day: 1.5 hours per day Patient and/or Family Agrees t: Yes Time/GCodes Time In: 1420 Time Out: 1440 Total Billed Treatment Time: 20 Total Billed Treatment visit FA 20 KEITH PAREKH PT Aug 26, 2018 14:58
--- NOTE | 2018-08-26 15:27 | Therapy Group Daily Note ---
Therapy Daily Group Note Patient Education Topic Home Safety, Other List Below (Fall Prevention) Exercises LE Seated Exercise, UE Exercise Other/Notes Pt ambulates to PT/OT Group using FWW. Group consists of Introduction (Name, Where you are from and An example of a fall you have had), Socialization, Pt led Seated UE/LE EX, Home Safety & Fall Prevention Techniques. Pt actively participated in Group by leading an exercise, giving personal examples of falls and fall prevention techniques pt has used. Pt interrupted while pt & staff was participating, sometimes over other conversations. At times pt's discussion was off topic. Staff gave redirection for pt to correct. Pt returned to room at end of Group with all needs met. Start Time: 13:00 Stop Time: 14:20 Total Billed Treatment Time: 80 Total Billed Treatment 1, GRP EBAU HAYES VISION TEACHER Aug 26, 2018 15:27
[2018-08-26 16:01] VITALS: BP 145/89
--- NOTE | 2018-08-26 16:15 | Occupational Therapy Eval ---
OT Evaluation-General/PLF Medical Diagnosis Admission Date Aug 26, 2018 at 11:20 Medical Diagnosis: UTI, Sepsis Onset Date: Aug 24, 2018 Therapy Diagnosis Therapy Diagnosis: Weakness Height/Weight Height (Feet): 5 Height (Inches): 7.00 Weight (Pounds): 154 Weight (Ounces): 1.0 Precautions Precautions/Isolations: Fall Prevention, Standard Precautions, Pressure Ulcer Weight Bear Status Weight Bearing Restriction: Weight Bearing/Tolerated Referral Physician: Jimmy Referral Reason: Activity Tolerance, Self Care, Evaluation/Treatment, Strengthening/ROM Medical History Pertinent Medical History: Alcoholism, Back Injury, COPD Current History Pt. fell at home and layed in BM for several days. Found by landlord. Pt. has ulcers on right LE. Reviewed History: Yes Social History Home: Single Level (mobile home) Current Living Status: Alone (pt has friends that check in on him as needed) Entry Into Home: Stairs With Railing Steps Into Home: 3 ADL-Prior Level of Function Functional [place] Measure 0=Not Assessed/NA 4=Minimal Assistance 1=Total Assistance 5=Supervision or Setup 2=Maximal Assistance 6=Modified [place] 3=Moderate Assistance 7=Complete [place] ADL PLOF Comments Pt. reports that he was independent, but unsure of pt's validity. At one point states that he used a walker, but then states that he did not. 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 Self Care Self Care: (Code the patient's need for assistance with bathing, dressing, using the toilet, or eating prior to the current illness, exacerbation, or injury.) Functional Cognition Functional Cognition: (Code the patient's need for assistance with planning regular tasks, such as shopping or remembering to take medicaiton prior to the current illness, exacerbation, or injury.) Pt. reports that he bathes by having his landlord boil water and put in his tub and then he "soaks." OT Current Status Subjective Pt. does not report pain. Appearance Pt. is seen in two treatment sessions. Pt. is alert both times. Mental Status/Objective Patient Orientation: Unable to Assess Attachments: Yeboah Catheter Current Hand Dominance: Right Upper Extremity ROM WFL ADL-Treatment Functional [place] Measure 0=Not Assessed/NA 4=Minimal Assistance 1=Total Assistance 5=Supervision or Setup 2=Maximal Assistance 6=Modified [place] 3=Moderate Assistance 7=Complete IndependenceIRFPAI Quality Coding Scale 6 Independent with activity with or without an assistive device 5 Patient requires set up or clean up by helper. Patient completes activity by themselves 4 Supervision or touching assist (CGA). [place] provide cues , steadying assist 3 The helper provides less than half the effort to complete the activity 2 The helper provides more than half the effort to complete the activity 1 Dependent. The helper does all the effort to complete an activity 7 Patient refused to complete or attempt activity 9 The patient did not perform the activity before the current illness or injury 88 Not attempted due to Medical conditions or safety concerns Lower Body Dressing (FIM): 2 (Pt. is unable to doff or don his socks.) Lower Body Dressing (QC): 2 On/Off Footwear (QC): 2 Transfers (B, C, W/C) (FIM): 2 (Mod assistance for sit-stand and transfer to chair. Min x 2 assist to ambulate approximately 20 feet with walker and chair follow.) Other Treatments At initial evaluation, pt. had just finished showering with nurse Applicasa. Pt. states that he did not want to shower. Pt. is encouraged to ambulate and is able to ambulate with min assist x 2 approximately 20 [address] hallway. Pt. requires encouragement. Transfers to wheelchair and then is able to self propel feet while OT pushes him to rehab area. Pt. is taken to therapy gym. Pt. is educated on therapy goals. Pt. states that he would like to get stronger. PT takes over at this time. OT came back to assist pt. later. At this time, OT/PT co-treated due to pt's fatigue after group therapy session. Sat EOB to work on balance with PT for core strength while OT performed UE strength with theraband. Pt. very limited with what he would do. Would only do a couple of exercises at a time and then begin to talk, get distracted. Becomes agitated if encouraged too much. Pt. is educated again on purpose of rehab and encouraged to do more for self. Pt. states that he wants to go to sleep. Pt. is able to transfer sit-supine with SBA. All needs are met. Education OT Patient Education: Correct positioning, Exercise program, Modified ADL techniques, Progress toward Goal/Update tx plan, Purpose of tx/functional activities, Reviewed precautions, Rehab process, Transfer techniques Teaching Recipient: Patient Teaching Methods: Demonstration, Discussion Response to Teaching: Verbalize Understanding, Return Demonstration OT Short Term Goals Short Term Goals Time Frame: Sep 09, 2018 Eating(FIM): 5 Grooming(FIM): 5 Bathing(FIM): 4 Upper Body Dressing(FIM): 4 Lower Body Dressing(FIM): 3 Toileting(FIM): 4 Transfers (B,C,W/C) (FIM): 4 Toilet/Commode Transfer(FIM): 4 Shower Transfer(FIM): 3 Additional Short Term Goals: 1-Demonstrate ADL Tasks, 2-Verbalize Understanding , 3-ImproveStrength/Ana 1=Demonstrate adherence to instructed precautions during ADL tasks. 2=Patient will verbalize/demonstrate understanding of assistive devices/ modifications for ADL. 3=Patient will improve strength/tolerance for activity to enable patient to perform ADL's. OT Risk Developer Goals Risk Developer Goals Time Frame: Sep 23, 2018 Eating (FIM): 6 Eating (QC): 6 Groomin Oral Hygiene (QC): 6 Bathing(FIM): 5 Shower/Bathe Self (QC): 4 Upper Body Dressing(FIM): 5 Upper Body Dressing (QC): 5 Lower Body Dressing(FIM): 4 Lower Body Dressing (QC): 4 On/Off Footwear (QC): 4 Toileting(FIM): 5 Toileting Hygiene (QC): 5 Transfers (B,C,W/C) (FIM): 6 Toilet/Commode Transfer(FIM): 6 Toilet/Commode Transfer (QC): 6 Shower Transfer(FIM): 5 Additional Goals: 1-Demonstrate ADL Tasks, 2-Verbalize Understanding, 3- ImproveStrength/Ana 1=Demonstrate adherence to instructed precautions during ADL tasks. 2=Patient will verbalize/demonstrate understanding of assistive devices/ modifications for ADL. 3=Patient will improve strength/tolerance for activity to enable patient to perform ADL's. OT Education/Plan Problem List/Assessment Assessment: Decreased Activ Tolerance, Decreased Safety Aware, Decreased UE Strength, Dependent Transfers, Impaired Bed Mobility, Impaired Cognition, Impaired Coordination, Impaired Funct Balance, Impaired I ADL's, Impaired Self- Care Skills, Restricted Funct UE ROM Discharge Recommendations Plan/Recommendations: Continue POC Therapy D/C Recommendations: 24 hr Supervision Comment Discharge goals and equipment needs to be determined. Treatment Plan/Plan of Care Treatment,Training & Education: Yes Patient would benefit from OT for education, treatment and training to promote independence in ADL's, mobility, safety and/or upper extremity function for ADL' s. Plan of Care: ADL Retraining, Functional Mobility, Group Exercise/Act as Ind, UE Funct Exercise/Act Treatment Duration: Sep 23, 2018 Frequency: At least 5 of 7 days/Wk (IRF) Estimated Hrs Per Day: 1.5 hours per day Agreement: Yes Rehab Potential: Fair Time/GCodes Start Time: 11:20 Stop Time: 14:40 Total Time Billed (hr/min): 40 Billed Treatment Time 8532-3662 1, EVH x 20minutes [id number] 1, Ex x 20minutes Co-treat with PT. Please see above for designated roles. JOSE CARLOS OCHOA OT Aug 26, 2018 16:15
--- NOTE | 2018-08-26 18:19 | Wound Care Assessment ---
Wound Care Assessment Date Seen by Provider: Aug 26, 2018 Time Seen by Provider: 15:45 Chief Complaint Perineal rash HPI The patient is a 77 year old male, who was down at home for two days, incontinent, and presented with severe MASD of the perineal area. He has been begun on topical barrier cream, and his wounds are improving. Smoking Status: Former Smoker Review of Systems Neurological: Weakness Exam Vital Signs Date Time Temp Pulse Resp B/P (MAP) Pulse Ox O2 Delivery O2 Flow Rate FiO2 08/26/18 16:01 99.1 87 16 145/89 (107) 96 Room Air Capillary Refill : Respiratory: no respiratory distress Skin: other (Maceration of perineum, severe.) Assessment/Plan/Dx 1. Moisture associated skin Damage, perineum. 2. Urinary incontinence. 3. Debility. Plan; Barrier cream, frequent toileting, urinary drainage as needed. HARI DUMONT MD Aug 26, 2018 18:19
[2018-08-27 05:44] VITALS: BP 160/87
[2018-08-27] MEDS: KCL 20 MEQ TAB (K-DUR) PO SCH (06:53)
[2018-08-27] MEDS: CEFDINIR 300 MG (OMNICEF) CAP PO SCH ×2 (09:51→20:05)
[2018-08-27] MEDS: ZINC OXIDE 16% OINT (BUTT PASTE) 113 GM TUBE TOP SCH ×3 (09:55→20:05)
--- NOTE | 2018-08-27 09:55 | ST Cognitive Linguistic Eval ---
Speech Evaluation-General Medical Diagnosis UTI, Sepsis Onset Date: Aug 24, 2018 Therapy Diagnosis Therapy Diagnosis: Cognition Precautions Precautions/Isolations: Fall Prevention, Standard Precautions Referral Referring Physician: Dr. Marquez Reason for Referral: Evaluation/Treatment Medical History Pertinent Medical History: Alcoholism, Back Injury, COPD Current History Back Injury Reviewed History: Yes Social History Current Living Status: Alone (pt has friends that check in on him as needed) Speech PLF-Current Status Prior Level of Function pt lives in mobile home and was independent Subjective Pt in bed...cooperative Language Eval: Auditory Comprehends Simple Yes/No Ques: Functional Follows 1-Step Commands: Functional Follows Complex Directions: Functional Follows General Conversations: Functional Language Eval: Verbal Language Completes Spontaneous Greeting: Functional Produces Auto, Serial Info: Functional Word Finding: Functional Requests Basic Needs: Functional States Basic Personal Info: Functional Expresses Complex Ideas: Functional Objective Cognitive Domain Attention: WNL Memory: WNL Problem Solving: Functional Objective Results [facility] Cognitive/Communication Assessment was administered to assess cognitive -linguistic functioning. Results are: Orientation - pt oriented x 3 Memory - 3 word recall for immediate was 3/3, Delayed was 2/3 and remote delay was 3/3. Problem Solving - Simple was 4/4 correct; Abstract/complex was 1/2 correct. Speech/language WNL Oral Motor/Speech Production WNL Impression Functional cognitive-linguistic functioning. Communication/Social Cognition Comprehension: 7 Expression: 7 Social Interaction: 7 Problem Solvin Memory: 6 Speech Patient Assess Expression of Ideas/Wants: Expression (4) Understanding Verbal Content: Understands (4) Brief Interview-Mental Status: Yes Repetition of Three Words: Three (3) Temporal Orientation: Year: Correct (3) Temporal Orientation: Month: Accurate within 5 days(2) Temporal Orientation: Day: Correct (1) Recall : Wear to say "Sock": Yes,after cueing (1) Recall : Color: Yes, no cue required (2) Recall : Bed: Yes, no cue required (2) Speech Short Term Goals Short Term Goals Short Term Goals no STGS established as no skilled ST indicated Speech [place] Goals Senior Living Goals No LTGs established as pt does not require skilled ST Speech-Plan Patient/Family Goals Patient/Family Goals: to return home Treatment Plan Speech Therapy Treatment Plan: Discontinue ST Pt does not require skilled ST services Frequency: Modified Program (IRF) (0) Estimated Hrs Per Day: Other (0) Rehab Potential: Fair Pt/Family Agrees to Plan: Yes Safety Risks/Education Teaching Recipient: Patient Teaching Methods: Discussion Response to Teaching: Verbalize Understanding Time Speech Therapy Time In: 09:30 Speech Therapy Time Out: 09:45 Total Billed Time: 15 Billed Treatment Time 1, SPSNDWILBER Snowden Aug 27, 2018 09:55
--- NOTE | 2018-08-27 10:55 | Physical Therapy Daily Note ---
PT Daily Note-Current Subjective Reports he feels a bit nauseated and dizzy. However, once up and moving, reported feeling better. He did require extra encouragement to participate. Pain Numeric Pain Scale: 0-No Pain Location: No Pain Reported Mental Status Patient Orientation: Person, Place, Time, Situation Transfers Functional [place] Measure 0=Not Assessed/NA 4=Minimal Assistance 1=Total Assistance 5=Supervision or Setup 2=Maximal Assistance 6=Modified [place] 3=Moderate Assistance 7=Complete IndependenceIRFPAI Quality Coding Scale 6 Independent with activity with or without an assistive device 5 Patient requires set up or clean up by helper. Patient completes activity by themselves 4 Supervision or touching assist (CGA). [place] provide cues , steadying assist 3 The helper provides less than half the effort to complete the activity 2 The helper provides more than half the effort to complete the activity 1 Dependent. The helper does all the effort to complete an activity 7 Patient refused to complete or attempt activity 9 The patient did not perform the activity before the current illness or injury 88 Not attempted due to Medical conditions or safety concerns Transfers (B, C, W/C) (FIM): 4 Roll Left to Right (QC): 4 Supine to/from Sit: 4 Sit to/from Stand: 4 (skilled cues for hand placement and min assist to come to a stand. ) Sit to Lying (QC): 4 Sit to Stand (QC): 4 toilet transfer with min assist; min assist with wagner care; CGA to stand at the sink to wash his hands. Weight Bearing Right Lower Extremity: Right Full Weight Bearing Left Lower Extremity: Left Full Weight Bearing Gait Training Does the Patient Walk?: Yes Gait (FIM): 2 Distance (FIM): 8=248-54 ft Distance: 50 ft x 5 Gait Assistive Device: FWW slow giat and unsteady; limited distance as well. Exercises Seated Therapy Exercises: Ankle pumps, Sit to stand, Long arc quads, Hip flexion Seated Reps: 15 (to promote LE strength for improved transfers. ) NuStep Minutes: 15 Assessment Current Status: Fair Progress Slow with transfers and gait; incont of BM with standing x 1. Cleaned and toileted. Needs encouragement but does agree to participate. Unsteady with gait today and decreased distance. PT Short Term Goals Short Term Goals Time Frame: Sep 02, 2018 Transfers (B,C,W/C) (FIM): 4 Gait (FIM): 4 Distance (FIM): 3=150 ft Gait Assistive Device: FWW PT Associate Professor Of Kinesiology Goals Shelter Goals PT Shelter Goals Time Frame: Sep 11, 2018 Transfers (B,C,W/C) (FIM): 7 Sit to Lying (QC): 6 Lying-Sitting on Side/Bed(QC): 6 Sit to Stand (QC): 6 Rollin Roll Left to Right (QC): 6 Chair/Zsz-hl-[id number] Xfer(QC): 6 Car Transfer (QC): 6 Does the Patient Walk: Yes Gait (FIM): 6 Gait distance (FIM): 3=150 ft Walk 10 feet (QC): 6 Walk 10ft-Uneven Surface(QC): 6 Walk 50ft with 2 Turns (QC): 6 Walk 150 ft (QC): 6 Gait Assistive Device: FWW Does the Pt use WC or Scooter?: No Stairs (FIM): 5 # of Steps: 4 1 Step (curb) (QC): 6 4 Steps (QC): 6 12 Steps (QC): 88 Picking up an Object (QC): 4 PT Plan Problem List Problem List: Activity Tolerance, Functional Strength, Safety, Balance, Gait, Transfer, Bed Mobility Treatment/Plan Treatment Plan: Continue Plan of Care Treatment Plan: Bed Mobility, Education, Functional Activity Ana, Functional Strength, Group Therapy, Gait, Safety, Therapeutic Exercise, Transfers Treatment Duration: Sep 11, 2018 Frequency: At least 5 of 7 days/Wk (IRF) Estimated Hrs Per Day: 1.5 hours per day Patient and/or Family Agrees t: Yes Safety Risks/Education Patient Education: Transfer Techniques, Safety Issues Teaching Recipient: Patient Teaching Methods: Demonstration, Discussion Response to Teaching: Reinforcement Needed Discharge Recommendations Therapy D/C Recommendations: Physical Therapy Home Care Time/GCodes Time In: 815 Time Out: 915 Total Billed Treatment Time: 60 Total Billed Treatment visit EX 30 GT 15 FA 15 KEITH PAREKH PT Aug 27, 2018 10:55
[2018-08-27] MEDS: ENOXAPARIN 40 MG/0.4 ML (LOVENOX) SYR SC SCH (11:02)
[2018-08-27] MEDS: HYDROcodone/APAP 10 MG/325 MG (LORTAB) TAB PO PRN (11:07)
--- NOTE | 2018-08-27 12:20 | PM&R Post Admission Assessment ---
Post Admission Physician Asses Date seen by provider: Aug 27, 2018 Time seen by provider: 08:20 The preadmission screen agrees with the post admission assessment that the patient is a good candidate for inpatient rehabilitation. The patient will have a comprehensive program of inpatient rehabilitation with a goal of maximizing level of functional independence prior to discharge home with [facility]. The patient will have PT/OT ninety minutes per day, each discipline , five days a week for 2 weeks for gait, strengthening, conditioning, balance, ADLs, any patient/family/caregiver training as necessary. Speech therapy to do cognitive assessment and treat as indicated. Rehabilitation nursing to assist with bowel, bladder, skin, wound care, medication administration, pain management. Tour Leader to assist with discharge planning, community reentry. SCD's for DVT prophylaxis. He appears to be well motivated to participate in three hours of therapy a day. He should be able to tolerate three hours of therapy a day from a medical standpoint. He should benefit from the three hours of therapy a day. He has a reasonable discharge plan, reasonable discharge rehabilitation goals and a supportive family. He has various comorbidities that need to be closely monitored with medications and treatments adjusted on a daily basis as needed. These include: Pressure sores Neurogenic Bladder ETOH abuse [facility] code 03.8 Etiologic DX Disuse myopathy Barriers to discharge for this patient who had been independent prior to this are for him to be modified independent to supervision for ADLs and mobility skills prior to discharge home with [facility], so as to lessen the burden of the caregivers. Risks for this patient include: 1. Fall 2. Fracture 3. DVT 4. Pulmonary embolism 5. Wound infection 6. Skin breakdown 7. Contractures 8. Poorly controlled pain 9. Urinary retention 10. Recurrent UTI 11. Respiratory infection 12. Aspiration Estimated Length of Stay: 14 days Prognosis: Rehab prognosis appears good for goal of discharge home with [facility] modified independent to supervision for ADLs and mobility skills. Date Identified: Aug 27, 2018 Time Identified: 10:00 Action Plan to Resolve CSMI: Transfer meds reviewed General: Alert, Oriented X3, Cooperative, No Acute Distress HEENT: Atraumatic, PERRLA, EOMI, Mucous Memb Moist/[place] Neck: Supple, No JVD Lungs: Clear to Auscultation Heart: Regular Rate Abdomen: Normal Bowel Sounds, Soft, No Tenderness Extremities: No Edema Skin: Other (MASD of the perineal area) Neuro: Other (BL limbs strength 3+5 Sensation intact Strength Both Upper limbs 4/5 Cognition intact) Psych/Mental Status: Mental Status NL PATRIA YAP MD Aug 27, 2018 12:20
--- NOTE | 2018-08-27 12:49 | Occupational Ther Daily Note ---
OT Current Status-Daily Note Subjective No pain reported. Pt. states, "I'm tired and I am going to take a nap." Appearance Pt. in bed. Mental Status/Objective Patient Orientation: Unable to Assess Functional [place] Measure 0=Not Assessed/NA 4=Minimal Assistance 1=Total Assistance 5=Supervision or Setup 2=Maximal Assistance 6=Modified [place] 3=Moderate Assistance 7=Complete [place] ADL-Treatment Functional [place] Measure 0=Not Assessed/NA 4=Minimal Assistance 1=Total Assistance 5=Supervision or Setup 2=Maximal Assistance 6=Modified [place] 3=Moderate Assistance 7=Complete IndependenceIRFPAI Quality Coding Scale 6 Independent with activity with or without an assistive device 5 Patient requires set up or clean up by helper. Patient completes activity by themselves 4 Supervision or touching assist (CGA). [place] provide cues , steadying assist 3 The helper provides less than half the effort to complete the activity 2 The helper provides more than half the effort to complete the activity 1 Dependent. The helper does all the effort to complete an activity 7 Patient refused to complete or attempt activity 9 The patient did not perform the activity before the current illness or injury 88 Not attempted due to Medical conditions or safety concerns Eating (FIM): 5 (Set up to drink shake.) Eating (QC): 4 Grooming (FIM): 5 (Set up to wash hands, wet hair at sink in wheelchair, and comb hair.) Upper Body (FIM): 5 (SBA to don shirt.) Upper Body Dressing (QC): 4 Lower Body Dressing (FIM): 2 (Max assist to thread catheter through pants and then thread pants over feet. Pt. able to stand and hold onto grab bar from toilet and OT pulled over hips and tied pants in front.) Lower Body Dressing (QC): 2 Toileting (FIM): 5 (Pt. does cleanse self on toilet with supervision.) Toileting Hygiene (QC): 4 Transfers (B, C, W/C) (FIM): 3 (Min assist to transfer supine-sit. Mod assist to transfer bed to chair. Pt. declines using walker.) Toilet/Commode Transfer (FIM): 3 Toilet Transfer (QC): 3 Other Treatment Pt. does not want to participate at first. Requires multiple cues and encouragement. Does not understand reason for rehab and goals. States that he wants to take a nap. Does eventually agree and transfers to wheelchair and then to toilet. Dresses on toilet and then back to wheelchair. Self propels wheelchair using feet to therapy gym and completes 10 minutes on armbike at min resistance to increase overall strength. After this task, pt. self propels back to room. Transfers back to bed. All needs met. Education OT Patient Education: Correct positioning, Exercise program, Modified ADL techniques, Progress toward Goal/Update tx plan, Purpose of tx/functional activities, Reviewed precautions, Rehab process, Transfer techniques Teaching Recipient: Patient Teaching Methods: Demonstration, Discussion Response to Teaching: Verbalize Understanding, Return Demonstration OT Short Term Goals Short Term Goals Time Frame: Sep 09, 2018 Eating(FIM): 5 Grooming(FIM): 5 Bathing(FIM): 4 Upper Body Dressing(FIM): 4 Lower Body Dressing(FIM): 3 Toileting(FIM): 4 Transfers (B,C,W/C) (FIM): 4 Toilet/Commode Transfer(FIM): 4 Shower Transfer(FIM): 3 Additional Short Term Goals: 1-Demonstrate ADL Tasks, 2-Verbalize Understanding , 3-ImproveStrength/Ana 1=Demonstrate adherence to instructed precautions during ADL tasks. 2=Patient will verbalize/demonstrate understanding of assistive devices/ modifications for ADL. 3=Patient will improve strength/tolerance for activity to enable patient to perform ADL's. OT Usp Goals Store Operations Specialist Goals Time Frame: Sep 23, 2018 Eating (FIM): 6 Eating (QC): 6 Groomin Oral Hygiene (QC): 6 Bathing(FIM): 5 Shower/Bathe Self (QC): 4 Upper Body Dressing(FIM): 5 Upper Body Dressing (QC): 5 Lower Body Dressing(FIM): 4 Lower Body Dressing (QC): 4 On/Off Footwear (QC): 4 Toileting(FIM): 5 Toileting Hygiene (QC): 5 Transfers (B,C,W/C) (FIM): 6 Toilet/Commode Transfer(FIM): 6 Toilet/Commode Transfer (QC): 6 Shower Transfer(FIM): 5 Additional Goals: 1-Demonstrate ADL Tasks, 2-Verbalize Understanding, 3- ImproveStrength/Ana 1=Demonstrate adherence to instructed precautions during ADL tasks. 2=Patient will verbalize/demonstrate understanding of assistive devices/ modifications for ADL. 3=Patient will improve strength/tolerance for activity to enable patient to perform ADL's. OT Education/Plan Problem List/Assessment Assessment: Decreased Activ Tolerance, Decreased Safety Aware, Decreased UE Strength, Dependent Transfers, Impaired Bed Mobility, Impaired Cognition, Impaired Coordination, Impaired Funct Balance, Impaired I ADL's, Impaired Self- Care Skills, Restricted Funct UE ROM Discharge Recommendations Plan/Recommendations: Continue POC Therapy D/C Recommendations: 24 hr Supervision Comment Equipment needs and discharge location to be determined. Treatment Plan/Plan of Care Treatment,Training & Education: Yes Patient would benefit from OT for education, treatment and training to promote independence in ADL's, mobility, safety and/or upper extremity function for ADL' s. Plan of Care: ADL Retraining, Functional Mobility, Group Exercise/Act as Ind, UE Funct Exercise/Act Treatment Duration: Sep 23, 2018 Frequency: At least 5 of 7 days/Wk (IRF) Estimated Hrs Per Day: 1.5 hours per day Agreement: Yes Rehab Potential: Fair Time/GCodes Start Time: 10:00 Stop Time: 11:00 Total Time Billed (hr/min): 60 Billed Treatment Time 1, ADL x 30minutes, Ex x 30minutes JOSE CARLOS OCHOA OT Aug 27, 2018 12:49
--- NOTE | 2018-08-27 13:10 | HISTORY AND PHYSICAL ---
DATE OF SERVICE: 08-27-18 ADMISSION HISTORY AND PHYSICAL CHIEF COMPLAINT: Difficulty with walking. HISTORY OF PRESENT ILLNESS: The patient is a 77-year-old male, who lives alone in a trailer in [place], [place] and has a past medical history significant for a back injury, COPD, ethanol abuse and neurogenic bladder, who does his own self cathing at home, who was admitted to [facility] via the ED after he presented with skin breakdown after being down in his mobile home for a while. He was found to have a UTI and sepsis, this was treated. He was seen by wound care physician, Dr. López. He had been independent prior to this, but currently requires assistance for his ADLs and mobility skills. He is min assist for transfers and gait with a front wheel walker. He is max assist for lower body dressing. He is independent for eating; min assist for upper body dressing, bladder is currently managed with indwelling Yeboah catheter. He is reported to be continent of bowel. PAST MEDICAL HISTORY: Chronic back pain, COPD, ethanol abuse and neurogenic bladder. PCP is Dr. Cantu. He is being cared for by Dr. Cool, hospitalist while inpatient. He apparently fell at home and laid in his bowel movement for several days and was found by his landlord. PAST SURGICAL HISTORY: As per above. ALLERGIES: IODINE. FAMILY HISTORY: Noncontributory. SOCIAL HISTORY: He is legally . History of ethanol abuse. Retired production truck driver. REVIEW OF SYSTEMS: A 10-point review of systems is significant for weakness and neurogenic bladder. MEDICATIONS: Lovenox 40 mg subq daily, Omnicef 300 mg p.o. b.i.d., K-Dur 20 mEq p.o. daily, zinc oxide applied to the right eye t.i.d., hydrocodone/APAP 10 one tablet p.o. q.4 hours p.r.n. moderate pain and ibuprofen 400 mg p.o. q.6 hours p.r.n. mild pain. PHYSICAL EXAMINATION: GENERAL: Significant for a male appearing his stated age, sitting in a wheelchair, in no acute distress. VITAL SIGNS: He is afebrile, pulse is 77, respirations 18, blood pressure 160/87 and O2 sat 97% on room air. HEENT: Vision, speech and hearing grossly intact. No oral lesion is noted. NECK: Supple without mass. HEART: Regular rhythm. CHEST: Clear. ABDOMEN: Soft and nontender. Bowel sounds are present. EXTREMITIES: No lower leg edema and no calf tenderness. SKIN: He has MASD of the perineal area and has topical barrier cream for that. MUSCULOSKELETAL: He has functional active range of motion in all 4 limbs. NEUROLOGIC: Sensation is grossly intact to touch. Strength in lower limbs is 3+/5 and upper limbs 4/5. GENITOURINARY: Indwelling Yeboah catheter to dependent drainage. IMPRESSION: 1. 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 2. Pressure sore being cared for by Dr. López. 3. History of ethanol abuse. 4. Neurogenic bladder managed with intermittent catheterization at home, currently with indwelling Yeboah catheter. 5. Deep vein thrombosis prophylaxis, on Lovenox subq. 6. Hypokalemia, on potassium. PLAN: The patient will have a comprehensive program of inpatient rehabilitation with goal of maximizing level of functional independence prior to discharge home with home health care. The patient will have PT, OT 90 minutes per day each discipline 5 days a week for 2 weeks with the above goals in mind. Please see post-admission physician evaluation, which is separate document for details of plan of care. Speech therapy to do cognitive assessment and treat as indicated. Rehabilitation nursing to assist with bowel, bladder, skin, wound care, medication administration and pain management. Social service to assist with discharge planning, community reentry. Follow up with Dr. Cool and Dr. López as per their schedule and switch back to intermittent catheterization program when the patient is able. Consider behavioral health consult regarding history of ethanol abuse. ESTIMATED LENGTH OF STAY: Two weeks. PROGNOSIS: Rehab prognosis appears good for goal of discharging back to mobile home, modified independent for ADLs and mobility skills. An assisted living facility setting would be ideal if the patient is agreeable and able to look forward or if there is family that can assist him at home. DIET: Regular. CODE STATUS: Full code. Job ID: [id number] DocumentID: [id number] Dictated Date: 08/27/2018 12:35:33 Ethylene Oxide Panelboard Operator Date: 08/27/2018 13:09:55 Dictated By: PATRIA YAP MD [facility]
--- NOTE | 2018-08-27 14:37 | Therapy Group Daily Note ---
Therapy Daily Group Note Patient Education Topic Energy Cons, Exercises, Other List Below Exercises LE Seated Exercise, UE Exercise Other/Notes Pt was an active participant in OT/PT group. He introduced himself and shared his favorite Halloween memory. He contributed to discussion/education on activity tolerance and energy conservation and also education/discussion on benefits of exercise. He did seated UE and LE exercises with encouragement. He was at times a little inappropriate, interrupted others as they spoke. He started to walk back to his room without assistance and was left up his room, all needs met. Start Time: 13:00 Stop Time: 14:10 Total Billed Treatment Time: 70 Total Billed Treatment visit, 70 minutes group MOHAN BRICEÑO OT Aug 27, 2018 14:37
[2018-08-27 15:33] VITALS: BP 166/84
[2018-08-28 06:00] VITALS: BP 160/68
[2018-08-28] MEDS: KCL 20 MEQ TAB (K-DUR) PO SCH (06:28)
--- NOTE | 2018-08-28 08:02 | PM & R (SOAP) Progress Note ---
Subjective This was a face to face visit with the patient. Date Seen by Provider: Aug 28, 2018 Time Seen by Provider: 07:30 Subjective/Events-last exam Patient was seen in his room this AM Patient Min assist for transfers Objective Physician Exam Last Set of Vital Signs Vital Signs Date Time Temp Pulse Resp B/P (MAP) Pulse Ox O2 Delivery O2 Flow Rate FiO2 08/28/18 06:00 98.0 70 18 160/68 (98) 97 Room Air Capillary Refill : I&O Intake and Output 08/28/18 00:00 Intake Total 1190 ml Output Total 2700 ml Balance -1510 ml Intake Oral 1190 ml Output Urine Total 2700 ml # Bowel Movements 2 General: Alert, Oriented X3, Cooperative, No Acute Distress HEENT: Atraumatic, PERRLA, EOMI, Mucous Memb Moist/[place] Neck: Supple, No JVD Lungs: Clear to Auscultation Heart: Regular Rate Abdomen: Normal Bowel Sounds, Soft, No Tenderness Extremities: No Edema Skin: Other (MASD of the perineal area) Neuro: Other (BL limbs strength 3+5 Sensation intact Strength Both Upper limbs 4/5 Cognition intact) Psych/Mental Status: Mental Status NL Assessment/Plan Assessment and Plan 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
[2018-08-28] MEDS: CEFDINIR 300 MG (OMNICEF) CAP PO SCH ×2 (08:43→20:58)
[2018-08-28] MEDS: ZINC OXIDE 16% OINT (BUTT PASTE) 113 GM TUBE TOP SCH ×3 (08:43→20:58)
[2018-08-28] MEDS: HYDROcodone/APAP 10 MG/325 MG (LORTAB) TAB PO PRN ×2 (09:11→20:58)
--- NOTE | 2018-08-28 10:29 | Physical Therapy Daily Note ---
PT Daily Note-Current Subjective Patient in bed pre tx, agrees to PT, has pain in right arm, unrated. Appearance Patient BTB post tx with nurse call, phone, tray, all needs met. Mental Status Patient Orientation: Normal For Age Transfers Functional [place] Measure 0=Not Assessed/NA 4=Minimal Assistance 1=Total Assistance 5=Supervision or Setup 2=Maximal Assistance 6=Modified [place] 3=Moderate Assistance 7=Complete IndependenceIRFPAI Quality Coding Scale 6 Independent with activity with or without an assistive device 5 Patient requires set up or clean up by helper. Patient completes activity by themselves 4 Supervision or touching assist (CGA). [place] provide cues , steadying assist 3 The helper provides less than half the effort to complete the activity 2 The helper provides more than half the effort to complete the activity 1 Dependent. The helper does all the effort to complete an activity 7 Patient refused to complete or attempt activity 9 The patient did not perform the activity before the current illness or injury 88 Not attempted due to Medical conditions or safety concerns Transfers (B, C, W/C) (FIM): 5 Scootin Rollin Supine to/from Sit: 5 Sit to/from Stand: 5 Bed to/from Chair: 5 Weight Bearing Right Lower Extremity: Right Full Weight Bearing Left Lower Extremity: Left Full Weight Bearing Gait Training Gait (FIM): 2 Distance: 60'x2 Gait Level of Assist: 5 Gait Persons Needed: 1 Gait Assistive Device: FWW During ambulation especially on the way back to his room, patient was SOB and very shaky. Patient required a seated rest break between bouts of ambulation. Treatments bed mobility and transfers, ambulation Assessment Current Status: Fair Progress SOB and shaky with exertion PT Short Term Goals Short Term Goals Time Frame: Sep 02, 2018 Transfers (B,C,W/C) (FIM): 4 Gait (FIM): 4 Distance (FIM): 3=150 ft Gait Assistive Device: FWW PT Machine Adjuster Leader Case Trim Goals Machine Adjuster Leader Case Trim Goals PT Long-Term Goals Time Frame: Sep 11, 2018 Transfers (B,C,W/C) (FIM): 7 Sit to Lying (QC): 6 Lying-Sitting on Side/Bed(QC): 6 Sit to Stand (QC): 6 Rollin Roll Left to Right (QC): 6 Chair/Mpw-gz-Qrhrf Xfer(QC): 6 Car Transfer (QC): 6 Does the Patient Walk: Yes Gait (FIM): 6 Gait distance (FIM): 3=150 ft Walk 10 feet (QC): 6 Walk 10ft-Uneven Surface(QC): 6 Walk 50ft with 2 Turns (QC): 6 Walk 150 ft (QC): 6 Gait Assistive Device: FWW Does the Pt use WC or Scooter?: No Stairs (FIM): 5 # of Steps: 4 1 Step (curb) (QC): 6 4 Steps (QC): 6 12 Steps (QC): 88 Picking up an Object (QC): 4 PT Plan Problem List Problem List: Activity Tolerance, Functional Strength, Safety, Balance, Gait, Transfer, Bed Mobility Treatment/Plan Treatment Plan: Continue Plan of Care Treatment Plan: Bed Mobility, Education, Functional Activity Ana, Functional Strength, Group Therapy, Gait, Safety, Therapeutic Exercise, Transfers Treatment Duration: Sep 11, 2018 Frequency: At least 5 of 7 days/Wk (IRF) Estimated Hrs Per Day: 1.5 hours per day Patient and/or Family Agrees t: Yes Safety Risks/Education Patient Education: Gait Training, Transfer Techniques, Correct Positioning, Safety Issues Teaching Recipient: Patient Teaching Methods: Demonstration, Discussion Response to Teaching: Reinforcement Needed Time/GCodes Time In: 1015 Time Out: 1027 Total Billed Treatment Time: 12 Total Billed Treatment 1 visit GT BEKAH SANDOVAL PT Aug 28, 2018 10:29
[2018-08-28] MEDS: ENOXAPARIN 40 MG/0.4 ML (LOVENOX) SYR SC SCH (12:12)
[2018-08-28 18:51] VITALS: BP 147/92
[2018-08-29 05:21] VITALS: BP 148/80
[2018-08-29] MEDS: KCL 20 MEQ TAB (K-DUR) PO SCH (06:09)
[2018-08-29] MEDS: HYDROcodone/APAP 10 MG/325 MG (LORTAB) TAB PO PRN (06:09)
[2018-08-29] MEDS: CEFDINIR 300 MG (OMNICEF) CAP PO SCH ×2 (09:00→21:06)
[2018-08-29] MEDS: IBUPROFEN TABLET 200 MG TAB PO PRN (09:01)
[2018-08-29] MEDS: ZINC OXIDE 16% OINT (BUTT PASTE) 113 GM TUBE TOP SCH ×3 (09:02→21:07)
[2018-08-29] MEDS: ENOXAPARIN 40 MG/0.4 ML (LOVENOX) SYR SC SCH (11:42)
[2018-08-29 17:30] VITALS: BP 121/87
[2018-08-29] MEDS: CALCIUM CARBONATE 500 MG (TUMS) TAB.CHEW PO PRN (22:35)
[2018-08-30 05:35] VITALS: BP 120/74
[2018-08-30] MEDS: KCL 20 MEQ TAB (K-DUR) PO SCH (07:49)
[2018-08-30] MEDS: CEFDINIR 300 MG (OMNICEF) CAP PO SCH ×2 (08:59→21:25)
[2018-08-30] MEDS: ZINC OXIDE 16% OINT (BUTT PASTE) 113 GM TUBE TOP SCH ×3 (09:04→21:26)
--- NOTE | 2018-08-30 10:18 | Occupational Ther Daily Note ---
OT Current Status-Daily Note Subjective Pt in bed and agreeable to therapy, however pt stated that he was not feeling well this morning and sick to his stomach. Mental Status/Objective Functional [place] Measure 0=Not Assessed/NA 4=Minimal Assistance 1=Total Assistance 5=Supervision or Setup 2=Maximal Assistance 6=Modified [place] 3=Moderate Assistance 7=Complete [place] ADL-Treatment Functional [place] Measure 0=Not Assessed/NA 4=Minimal Assistance 1=Total Assistance 5=Supervision or Setup 2=Maximal Assistance 6=Modified [place] 3=Moderate Assistance 7=Complete IndependenceIRFPAI Quality Coding Scale 6 Independent with activity with or without an assistive device 5 Patient requires set up or clean up by helper. Patient completes activity by themselves 4 Supervision or touching assist (CGA). [place] provide cues , steadying assist 3 The helper provides less than half the effort to complete the activity 2 The helper provides more than half the effort to complete the activity 1 Dependent. The helper does all the effort to complete an activity 7 Patient refused to complete or attempt activity 9 The patient did not perform the activity before the current illness or injury 88 Not attempted due to Medical conditions or safety concerns Grooming (FIM): 5 Bathing (FIM): 4 (Pt agreeable to sponge bath, and required Luis Enrique for back and buttocks region.) Upper Body (FIM): 5 Lower Body Dressing (FIM): 2 (Pt requires MaxA to thread catheter through pant legs, and required MaxA to richard pants over hips.) Toileting (FIM): 2 (Pt required MaxA to manage clothing over hips, and MaxA for hygiene following BM.) Transfers (B, C, W/C) (FIM): 4 (CGA for all transfers.) Other Treatment Pt participated in minimal BUE ther ex with 2# free weight, as he stated that his shoulders are painful. Pt agreeable to participate in ball work with 1# wrist weights to address strengthening, gross motor coordination, and cardiopulmonary capacity. Education OT Patient Education: Correct positioning, Modified ADL techniques, Reviewed precautions, Safety issues, Transfer techniques Teaching Recipient: Patient Teaching Methods: Demonstration, Discussion OT Short Term Goals Short Term Goals Time Frame: Sep 09, 2018 Eating(FIM): 5 Grooming(FIM): 5 Bathing(FIM): 4 Upper Body Dressing(FIM): 4 Lower Body Dressing(FIM): 3 Toileting(FIM): 4 Transfers (B,C,W/C) (FIM): 4 Toilet/Commode Transfer(FIM): 4 Shower Transfer(FIM): 3 Additional Short Term Goals: 1-Demonstrate ADL Tasks, 2-Verbalize Understanding , 3-ImproveStrength/Ana 1=Demonstrate adherence to instructed precautions during ADL tasks. 2=Patient will verbalize/demonstrate understanding of assistive devices/ modifications for ADL. 3=Patient will improve strength/tolerance for activity to enable patient to perform ADL's. OT Mcc Goals Mcc Goals Time Frame: Sep 23, 2018 Eating (FIM): 6 Eating (QC): 6 Groomin Oral Hygiene (QC): 6 Bathing(FIM): 5 Shower/Bathe Self (QC): 4 Upper Body Dressing(FIM): 5 Upper Body Dressing (QC): 5 Lower Body Dressing(FIM): 4 Lower Body Dressing (QC): 4 On/Off Footwear (QC): 4 Toileting(FIM): 5 Toileting Hygiene (QC): 5 Transfers (B,C,W/C) (FIM): 6 Toilet/Commode Transfer(FIM): 6 Toilet/Commode Transfer (QC): 6 Shower Transfer(FIM): 5 Additional Goals: 1-Demonstrate ADL Tasks, 2-Verbalize Understanding, 3- ImproveStrength/Ana 1=Demonstrate adherence to instructed precautions during ADL tasks. 2=Patient will verbalize/demonstrate understanding of assistive devices/ modifications for ADL. 3=Patient will improve strength/tolerance for activity to enable patient to perform ADL's. OT Education/Plan Problem List/Assessment Assessment: Decreased Activ Tolerance, Decreased Safety Aware, Decreased UE Strength, Impaired Coordination, Impaired Funct Balance Discharge Recommendations Plan/Recommendations: Continue POC Treatment Plan/Plan of Care Patient would benefit from OT for education, treatment and training to promote independence in ADL's, mobility, safety and/or upper extremity function for ADL' s. Plan of Care: ADL Retraining, Functional Mobility, Group Exercise/Act as Ind, UE Funct Exercise/Act Treatment Duration: Sep 23, 2018 Frequency: At least 5 of 7 days/Wk (IRF) Estimated Hrs Per Day: 1.5 hours per day Agreement: Yes Rehab Potential: Fair Time/GCodes Start Time: 09:00 Stop Time: 10:00 Total Time Billed (hr/min): 60 Billed Treatment Time ADL3, Therapeutic exercise1 JARRET POWELL OT Aug 30, 2018 10:18
--- NOTE | 2018-08-30 11:42 | Physical Therapy Daily Note ---
PT Daily Note-Current Subjective Patient in bed pre tx, agrees reluctantly to PT, has pain of 8/10 headache. Patient states he feels sick and is not sure how much PT he can do. Appearance Patient BTB post tx with nurse call,phone, tray, all needs met. Mental Status Patient Orientation: Person, Place, Situation Transfers Functional [place] Measure 0=Not Assessed/NA 4=Minimal Assistance 1=Total Assistance 5=Supervision or Setup 2=Maximal Assistance 6=Modified [place] 3=Moderate Assistance 7=Complete IndependenceIRFPAI Quality Coding Scale 6 Independent with activity with or without an assistive device 5 Patient requires set up or clean up by helper. Patient completes activity by themselves 4 Supervision or touching assist (CGA). [place] provide cues , steadying assist 3 The helper provides less than half the effort to complete the activity 2 The helper provides more than half the effort to complete the activity 1 Dependent. The helper does all the effort to complete an activity 7 Patient refused to complete or attempt activity 9 The patient did not perform the activity before the current illness or injury 88 Not attempted due to Medical conditions or safety concerns Transfers (B, C, W/C) (FIM): 5 Scootin Rollin Supine to/from Sit: 5 Sit to/from Stand: 5 Bed to/from Chair: 5 Patient has a tendency to not turn completely when sitting and sit a little too close to the edge. Needs cues for safety and positioning. Weight Bearing Right Lower Extremity: Right Full Weight Bearing Left Lower Extremity: Left Full Weight Bearing Gait Training Patient refused to ambulate Wheelchair Training Does the Pt Use a Wheelchair?: Yes Wheelchair (FIM): 5 Distance: 150'x2 Wheelchair Level of Assist: 5 Type of Wheelchair: Manual Patient uses arms and both legs to propel. Exercises NuStep Minutes: 15 NuStep Workload: 5 Treatments bed mobility, transfers, functional strengthening, wheelchair mobility Assessment Current Status: Poor Progress Patient is ill and refused to continue therapy after the NuStep, he propels his wheelchair back to the room and gets into bed. Patient states that he has a headache, is nauseated and is having dizziness. Nurse notified. PT Short Term Goals Short Term Goals Time Frame: Sep 02, 2018 Transfers (B,C,W/C) (FIM): 4 Gait (FIM): 4 Distance (FIM): 3=150 ft Gait Assistive Device: FWW PT Intermediate Goals Entry Level Lab Technician Goals PT Entry Level Lab Technician Goals Time Frame: Sep 11, 2018 Transfers (B,C,W/C) (FIM): 7 Sit to Lying (QC): 6 Lying-Sitting on Side/Bed(QC): 6 Sit to Stand (QC): 6 Rollin Roll Left to Right (QC): 6 Chair/Eed-br-Wqdrv Xfer(QC): 6 Car Transfer (QC): 6 Does the Patient Walk: Yes Gait (FIM): 6 Gait distance (FIM): 3=150 ft Walk 10 feet (QC): 6 Walk 10ft-Uneven Surface(QC): 6 Walk 50ft with 2 Turns (QC): 6 Walk 150 ft (QC): 6 Gait Assistive Device: FWW Does the Pt use WC or Scooter?: No Stairs (FIM): 5 # of Steps: 4 1 Step (curb) (QC): 6 4 Steps (QC): 6 12 Steps (QC): 88 Picking up an Object (QC): 4 PT Plan Problem List Problem List: Activity Tolerance, Functional Strength, Safety, Balance, Gait, Transfer, Bed Mobility, ROM Treatment/Plan Treatment Plan: Continue Plan of Care Treatment Plan: Bed Mobility, Education, Functional Activity Ana, Functional Strength, Group Therapy, Gait, Safety, Therapeutic Exercise, Transfers Treatment Duration: Sep 11, 2018 Frequency: At least 5 of 7 days/Wk (IRF) Estimated Hrs Per Day: 1.5 hours per day Patient and/or Family Agrees t: Yes Safety Risks/Education Patient Education: Transfer Techniques, Correct Positioning, W/C Management, Safety Issues Teaching Recipient: Patient Teaching Methods: Demonstration, Discussion Response to Teaching: Reinforcement Needed Time/GCodes Time In: 1100 Time Out: 1145 Total Billed Treatment Time: 45 Total Billed Treatment 1 visit EX 15' WCH 20' FA 10 BEKAH MALONE PT Aug 30, 2018 11:42
[2018-08-30] MEDS: ENOXAPARIN 40 MG/0.4 ML (LOVENOX) SYR SC SCH (11:47)
[2018-08-30] MEDS: IBUPROFEN TABLET 200 MG TAB PO PRN (11:51)
--- NOTE | 2018-08-30 12:10 | Occupational Ther Daily Note ---
OT Current Status-Daily Note Subjective Pt in bed and required a significant amount of encouragement to participate with second session of OT this date as pt stated that he "has a headache and doesn't want to do anything." With pt education and encouragement, the pt was willing to participate in light UE ther ex. Mental Status/Objective Functional [place] Measure 0=Not Assessed/NA 4=Minimal Assistance 1=Total Assistance 5=Supervision or Setup 2=Maximal Assistance 6=Modified [place] 3=Moderate Assistance 7=Complete [place] ADL-Treatment Functional [place] Measure 0=Not Assessed/NA 4=Minimal Assistance 1=Total Assistance 5=Supervision or Setup 2=Maximal Assistance 6=Modified [place] 3=Moderate Assistance 7=Complete IndependenceIRFPAI Quality Coding Scale 6 Independent with activity with or without an assistive device 5 Patient requires set up or clean up by helper. Patient completes activity by themselves 4 Supervision or touching assist (CGA). [place] provide cues , steadying assist 3 The helper provides less than half the effort to complete the activity 2 The helper provides more than half the effort to complete the activity 1 Dependent. The helper does all the effort to complete an activity 7 Patient refused to complete or attempt activity 9 The patient did not perform the activity before the current illness or injury 88 Not attempted due to Medical conditions or safety concerns Other Treatment Pt participated in BUE ther ex with use of red theraband through gross UE planes of motion, 1x10 reps this date. Pt educated on importance of participation with skilled therapy services, and educated on proper movements through UE movement patterns. UE ther ex completed to improve his overall strength and muscle endurance required for ADLs and IADLs. OT Short Term Goals Short Term Goals Time Frame: Sep 09, 2018 Eating(FIM): 5 Grooming(FIM): 5 Bathing(FIM): 4 Upper Body Dressing(FIM): 4 Lower Body Dressing(FIM): 3 Toileting(FIM): 4 Transfers (B,C,W/C) (FIM): 4 Toilet/Commode Transfer(FIM): 4 Shower Transfer(FIM): 3 Additional Short Term Goals: 1-Demonstrate ADL Tasks, 2-Verbalize Understanding , 3-ImproveStrength/Ana 1=Demonstrate adherence to instructed precautions during ADL tasks. 2=Patient will verbalize/demonstrate understanding of assistive devices/ modifications for ADL. 3=Patient will improve strength/tolerance for activity to enable patient to perform ADL's. OT Residential Goals [place] Interpretive Ranger Goals Time Frame: Sep 23, 2018 Eating (FIM): 6 Eating (QC): 6 Groomin Oral Hygiene (QC): 6 Bathing(FIM): 5 Shower/Bathe Self (QC): 4 Upper Body Dressing(FIM): 5 Upper Body Dressing (QC): 5 Lower Body Dressing(FIM): 4 Lower Body Dressing (QC): 4 On/Off Footwear (QC): 4 Toileting(FIM): 5 Toileting Hygiene (QC): 5 Transfers (B,C,W/C) (FIM): 6 Toilet/Commode Transfer(FIM): 6 Toilet/Commode Transfer (QC): 6 Shower Transfer(FIM): 5 Additional Goals: 1-Demonstrate ADL Tasks, 2-Verbalize Understanding, 3- ImproveStrength/Ana 1=Demonstrate adherence to instructed precautions during ADL tasks. 2=Patient will verbalize/demonstrate understanding of assistive devices/ modifications for ADL. 3=Patient will improve strength/tolerance for activity to enable patient to perform ADL's. OT Education/Plan Discharge Recommendations Plan/Recommendations: Continue POC Treatment Plan/Plan of Care Patient would benefit from OT for education, treatment and training to promote independence in ADL's, mobility, safety and/or upper extremity function for ADL' s. Plan of Care: ADL Retraining, Functional Mobility, Group Exercise/Act as Ind, UE Funct Exercise/Act Treatment Duration: Sep 23, 2018 Frequency: At least 5 of 7 days/Wk (IRF) Estimated Hrs Per Day: 1.5 hours per day Agreement: Yes Rehab Potential: Fair Time/GCodes Start Time: 11:40 Stop Time: 12:10 Total Time Billed (hr/min): 30 Billed Treatment Time TE2 JARRET POWELL OT Aug 30, 2018 12:10
--- NOTE | 2018-08-30 15:26 | Physical Therapy Daily Note ---
PT Daily Note-Current Subjective Pt reports, "I just spent alot of time visiting with Dr. Espinoza. I"m waiting on a shake and then I feel a nap coming on." Pt needed much encouragement to participate with PT. Throughout treatment, pt expressed that he wanted to stop. Reports he feels stronger and expressed that he felt like he was safe enough to walk on his own. Mental Status Patient Orientation: Person, Place, Time, Situation Attachments: [place] Catheter Transfers Functional [place] Measure 0=Not Assessed/NA 4=Minimal Assistance 1=Total Assistance 5=Supervision or Setup 2=Maximal Assistance 6=Modified [place] 3=Moderate Assistance 7=Complete IndependenceIRFPAI Quality Coding Scale 6 Independent with activity with or without an assistive device 5 Patient requires set up or clean up by helper. Patient completes activity by themselves 4 Supervision or touching assist (CGA). [place] provide cues , steadying assist 3 The helper provides less than half the effort to complete the activity 2 The helper provides more than half the effort to complete the activity 1 Dependent. The helper does all the effort to complete an activity 7 Patient refused to complete or attempt activity 9 The patient did not perform the activity before the current illness or injury 88 Not attempted due to Medical conditions or safety concerns Transfers (B, C, W/C) (FIM): 4 Supine to/from Sit: 7 Sit to Lying (QC): 6 Sit to Stand (QC): 4 (min to CGA for safety) Chair/Sfs-ij-Uplyb Xfer(QC): 4 (min to CGA for safety) Pt transfers stand to sit, often unsafely, without using his hands to reach back and one incidence of nearly missing the seat when he sat, required min assist to guide his hips safely. Weight Bearing Right Lower Extremity: Right Full Weight Bearing Left Lower Extremity: Left Full Weight Bearing Gait Training Does the Patient Walk?: Yes Gait (FIM): 4 Distance: 50 ft x 3; 150 ft x 1 all with close CG-min assist for safety. Gait Assistive Device: FWW Pt tends to walk with feet in slight ER and is unsteady with gait, requiring close CGA for safety. He demonstrates occas unsafe practices with use of his walker as well. Exercises NuStep Minutes: 10 NuStep Workload: 1 Treatments Gait, transfers, and ex; spent an extended amount of time trying to get pt to participate with skilled therapy this pm. Assessment Current Status: Fair Progress Safety concerns with transfers and gait; feel he is at risk of falling without assist with gait at this time. Requires encouragement to participate. PT Short Term Goals Short Term Goals Time Frame: Sep 02, 2018 Transfers (B,C,W/C) (FIM): 4 (et) Gait (FIM): 4 (met) Distance (FIM): 3=150 ft Gait Assistive Device: FWW Wheelchair Distance: 150'x2 PT Mcc Goals Mcc Goals PT Mcc Goals Time Frame: Sep 11, 2018 Transfers (B,C,W/C) (FIM): 7 Sit to Lying (QC): 6 Lying-Sitting on Side/Bed(QC): 6 Sit to Stand (QC): 6 Rollin Roll Left to Right (QC): 6 Chair/Bfu-ma-Mcbhc Xfer(QC): 6 Car Transfer (QC): 6 Does the Patient Walk: Yes Gait (FIM): 6 Gait distance (FIM): 3=150 ft Walk 10 feet (QC): 6 Walk 10ft-Uneven Surface(QC): 6 Walk 50ft with 2 Turns (QC): 6 Walk 150 ft (QC): 6 Gait Assistive Device: FWW Does the Pt use WC or Scooter?: No Stairs (FIM): 5 # of Steps: 4 1 Step (curb) (QC): 6 4 Steps (QC): 6 12 Steps (QC): 88 Picking up an Object (QC): 4 PT Plan Problem List Problem List: Activity Tolerance, Functional Strength, Safety, Balance, Gait, Transfer, Bed Mobility Treatment/Plan Treatment Plan: Continue Plan of Care Treatment Plan: Bed Mobility, Education, Functional Activity Ana, Functional Strength, Group Therapy, Gait, Safety, Therapeutic Exercise, Transfers Treatment Duration: Sep 11, 2018 Frequency: At least 5 of 7 days/Wk (IRF) Estimated Hrs Per Day: 1.5 hours per day Patient and/or Family Agrees t: Yes Safety Risks/Education Patient Education: Transfer Techniques, Safety Issues Teaching Recipient: Patient Teaching Methods: Demonstration, Discussion Response to Teaching: Reinforcement Needed Time/GCodes Time In: 1435 Time Out: 1520 Total Billed Treatment Time: 45 Total Billed Treatment visit EX 10 FA 40 (only billing 2 units) KEITH PAREKH PT Aug 30, 2018 15:26
[2018-08-30 18:39] VITALS: BP 126/85
--- NOTE | 2018-08-30 20:04 | Individualized Plan of Care ---
Individualized Plan of Care Rehab Nursing IPOC Order Admission Date Aug 26, 2018 at 11:20 Current Orders Orders Admission Order(Inpt,Obs,Sdc) (08/26/18 11:20) Pt Evaluate/Treat Request (08/26/18 11:00) Request Ot Evaluate & Treat (08/26/18 11:00) Request For Cognitive Services (08/26/18 11:00) Admission Arrival Bed Request (08/26/18 11:20) Code/Resuscitation (08/26/18 11:56) Advanced Wound Care Dressing O TID (08/26/18 11:56) Alcohol Perxluivfn-Toba-Jm Joel (08/26/18 11:56) Notify Physician: (08/26/18 11:56) Sequential Compression Device (08/26/18 11:56) Lorazepam Tablet (Ativan Tablet) (08/26/18 12:00) Hydrocodone/Apap 10/325 Tablet (Lortab 1 (08/26/18 12:00) Ibuprofen Tablet (Motrin Tablet) (08/26/18 12:00) Lorazepam Injection (Ativan Injection) (08/26/18 12:00) Potassium Chloride (Tablet) (K Dur Table (08/27/18 07:00) Sodium Chloride Flush (Catheter Flush Sy (08/26/18 12:00) Consult Wound Care Physician (08/26/18 11:56) Medication Assistant Consult (08/26/18 11:56) Cefdinir Capsule (Omnicef Capsule) (08/27/18 09:00) Enoxaparin Injection (Lovenox Injection) (08/27/18 11:30) Zinc Oxide 16% Ointment (Butt Paste) (08/26/18 13:00) Consult Hospitalist (08/26/18 12:11) General/Regular (08/26/18 Lunch) Weight Bearing Status (08/26/18 12:20) Intake & Output ,18 (08/26/18 12:20) Patient Visit (08/26/18 ) Pt Eval Moderate Complexity (08/26/18 ) Functional Activities, Ea 15 (08/26/18 ) Isolation Central Supply Req (08/26/18 13:45) Ambulate 08,12,20 (08/26/18 13:54) Sequential Compression Device ,20 (08/26/18 13:54) Dvt/Vte Risk - Notifiy Physici 08 (08/26/18 13:54) Patient Visit (08/26/18 ) Therapeutic, Group (08/26/18 ) Functional Activities, Ea 15 (08/26/18 ) Patient Visit (08/27/18 ) Exercise Therap, Ea 15 Min (08/27/18 ) Functional Activities, Ea 15 (08/27/18 ) Behavorial Health Consult (08/27/18 14:06) Patient Visit (08/27/18 ) Speech Sound Lang Comp (08/27/18 ) Patient Visit (08/27/18 ) Patient Visit (08/28/18 ) Gait Training, Ea 15 Min (08/28/18 ) Calcium Carbonate Chew Tablet (Antacid C (08/29/18 22:30) Patient Visit (08/30/18 ) Functional Activities, Ea 15 (08/30/18 ) Exercise Therap, Ea 15 Min (08/30/18 ) Wheelchair Mgmt/Propulsn 15min (08/30/18 ) Patient Visit (08/30/18 ) Exercise Therap, Ea 15 Min (08/30/18 ) Functional Activities, Ea 15 (08/30/18 ) Rehab Nursing Orders: Ongoing Assess. of Function Status, Bladder Management, Disease Management & Educaiton, DVT Prophylaxis, Fall Prevention, Fluid/ Electrolyte/Nutrition Mgmt, Infection Prevention, Medication Management & Education, Management of Risks & Complications, Management of Skin Intergrity, Nutrition Management, Patient/Family Support, Wound Management PT IPOC Problem List: Activity Tolerance, Functional Strength, Safety, Balance, Gait, Transfer, Bed Mobility Treatment Plan: Continue Plan of Care Bed Mobility, Education, Functional Activity Ana, Functional Strength, Group Therapy, Gait, Safety, Therapeutic Exercise, Transfers Treatment Duration: Sep 11, 2018 Frequency: At least 5 of 7 days/Wk (IRF) Estimated Hrs Per Day: 1.5 hours per day OT IPOC Problems: Decreased Activ Tolerance, Decreased Safety Aware, Decreased UE Strength, Impaired Coordination, Impaired Funct Balance OT Treatment, Training and Edu: Yes Plan of Care: ADL Retraining, Functional Mobility, Group Exercise/Act as Ind, UE Funct Exercise/Act Treatment Duration: Sep 23, 2018 Frequency: At least 5 of 7 days/Wk (IRF) Estimated Hrs Per Day: 1.[address] IPOC Speech Therapy Treatment Plan: Discontinue ST Treatment Duration: Aug 30, 2018 Frequency: Modified Program (IRF) (0) Estimated Hrs Per Day: Other (0) Medication Assistant/Case Mgmt Medication Assistant/Case Managemen: Discharge Planning, Patient/Family Counseling Dietitian/Peripheral Edp Equipment Operator Dietitian/Peripheral Edp Equipment Operator to monitor nutritional status and make changes and/or recommendations as needed and work with speech pathology on dietary upgrades as the occur. Neuropsychology/Psychology HX of ETOH abuse Physician IPOC Medical Issues being managed closely and that require the 24 hour availability of a physician: Pressure sores Neurogenic Bladder Hypokalemia HX of ETOH abuse 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
--- NOTE | 2018-08-30 20:37 | PM & R (SOAP) Progress Note ---
Subjective This was a face to face visit with the patient. Date Seen by Provider: Aug 30, 2018 Time Seen by Provider: 20:20 Subjective/Events-last exam Patient was seen in his room this evening Patient min assist for transfers Objective Physician Exam Last Set of Vital Signs Vital Signs Date Time Temp Pulse Resp B/P (MAP) Pulse Ox O2 Delivery O2 Flow Rate FiO2 08/30/18 18:39 98.8 81 16 126/85 (99) 96 Room Air Capillary Refill : I&O Intake and Output 08/29/18 23:59 Intake Total 1640 ml Output Total 2500 ml Balance -860 ml Intake Oral 1640 ml Output Urine Total 2500 ml General: Alert, Oriented X3, Cooperative, No Acute Distress HEENT: Atraumatic, PERRLA, EOMI, Mucous Memb Moist/[place] Neck: Supple, No JVD Lungs: Clear to Auscultation Heart: Regular Rate Abdomen: Normal Bowel Sounds, Soft, No Tenderness Extremities: No Edema Skin: Other (MASD of the perineal area) Neuro: Other (BL limbs strength 3+5 Sensation intact Strength Both Upper limbs 4/5 Cognition intact) Psych/Mental Status: Mental Status NL Assessment/Plan Assessment and Plan 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
[2018-08-31 05:05] VITALS: BP 156/84
[2018-08-31] MEDS: KCL 20 MEQ TAB (K-DUR) PO SCH (06:43)
[2018-08-31] MEDS: CEFDINIR 300 MG (OMNICEF) CAP PO SCH ×2 (08:53→20:33)
[2018-08-31] MEDS: ZINC OXIDE 16% OINT (BUTT PASTE) 113 GM TUBE TOP SCH ×3 (08:54→20:50)
--- NOTE | 2018-08-31 08:55 | Physical Therapy Daily Note ---
PT Daily Note-Current Subjective Patient in bed pre tx, agrees reluctantly to PT with encouragement, no complaints of pain but patient states he still feels ill. Patient needs dressed lowers and he does so with SBA. Appearance Patient in bed post tx with nurse call, phone, tray, all needs met. Mental Status Patient Orientation: Normal For Age Attachments: Yeboah Catheter Transfers Functional [place] Measure 0=Not Assessed/NA 4=Minimal Assistance 1=Total Assistance 5=Supervision or Setup 2=Maximal Assistance 6=Modified [place] 3=Moderate Assistance 7=Complete IndependenceIRFPAI Quality Coding Scale 6 Independent with activity with or without an assistive device 5 Patient requires set up or clean up by helper. Patient completes activity by themselves 4 Supervision or touching assist (CGA). [place] provide cues , steadying assist 3 The helper provides less than half the effort to complete the activity 2 The helper provides more than half the effort to complete the activity 1 Dependent. The helper does all the effort to complete an activity 7 Patient refused to complete or attempt activity 9 The patient did not perform the activity before the current illness or injury 88 Not attempted due to Medical conditions or safety concerns Transfers (B, C, W/C) (FIM): 5 Scootin Rollin Supine to/from Sit: 6 Sit to/from Stand: 5 Bed to/from Chair: 5 Patient needs occasional cues for safety and positioning. Weight Bearing Right Lower Extremity: Right Full Weight Bearing Left Lower Extremity: Left Full Weight Bearing Wheelchair Training Wheelchair (FIM): 5 Distance: 150'x2 Type of Wheelchair: Manual Exercises NuStep Minutes: 15 NuStep Workload: 4 Assessment Current Status: Poor Progress No ambulation today, patient states he still feels sick/ill. Patient was dressed lowers. Patient needs increased rest breaks due to fatigue and illness. Patient's breakfast heated up and placed on tray in front of him. PT Short Term Goals Short Term Goals Time Frame: Sep 02, 2018 Transfers (B,C,W/C) (FIM): 4 (et) Gait (FIM): 4 (met) Distance (FIM): 3=150 ft Gait Assistive Device: FWW Wheelchair Distance: 150'x2 PT Assembler [employer]s Goals Care Home Goals PT Care Home Goals Time Frame: Sep 11, 2018 Transfers (B,C,W/C) (FIM): 7 Sit to Lying (QC): 6 Lying-Sitting on Side/Bed(QC): 6 Sit to Stand (QC): 6 Rollin Roll Left to Right (QC): 6 Chair/Spu-oh-Nazol Xfer(QC): 6 Car Transfer (QC): 6 Does the Patient Walk: Yes Gait (FIM): 6 Gait distance (FIM): 3=150 ft Walk 10 feet (QC): 6 Walk 10ft-Uneven Surface(QC): 6 Walk 50ft with 2 Turns (QC): 6 Walk 150 ft (QC): 6 Gait Assistive Device: FWW Does the Pt use WC or Scooter?: No Stairs (FIM): 5 # of Steps: 4 1 Step (curb) (QC): 6 4 Steps (QC): 6 12 Steps (QC): 88 Picking up an Object (QC): 4 PT Plan Problem List Problem List: Activity Tolerance, Functional Strength, Safety, Balance, Gait, Transfer, Bed Mobility, ROM Treatment/Plan Treatment Plan: Continue Plan of Care Treatment Plan: Bed Mobility, Education, Functional Activity Ana, Functional Strength, Group Therapy, Gait, Safety, Therapeutic Exercise, Transfers Treatment Duration: Sep 11, 2018 Frequency: At least 5 of 7 days/Wk (IRF) Estimated Hrs Per Day: 1.5 hours per day Patient and/or Family Agrees t: Yes Safety Risks/Education Patient Education: Transfer Techniques, Correct Positioning, W/C Management, Safety Issues Teaching Recipient: Patient Teaching Methods: Demonstration, Discussion Response to Teaching: Reinforcement Needed Time/GCodes Time In: 0800 Time Out: 0900 Total Billed Treatment Time: 60 Total Billed Treatment 1 visit EX 15' WC 20' FA 35' BEKAH MALONE PT Aug 31, 2018 08:55
[2018-08-31] MEDS: ENOXAPARIN 40 MG/0.4 ML (LOVENOX) SYR SC SCH (11:34)
--- NOTE | 2018-08-31 12:19 | Occupational Ther Daily Note ---
OT Current Status-Daily Note Subjective Pt in bed, initially ignores therapist. will not open eyes or respond to questions, and when encouraged to participate in therapy pt states "I wasn't planning on it." Pt states he doesn't feel well, but refuses to elaborate, states he wants to take a nap. Pt requires much encouragement to participate. Mental Status/Objective Functional [place] Measure 0=Not Assessed/NA 4=Minimal Assistance 1=Total Assistance 5=Supervision or Setup 2=Maximal Assistance 6=Modified [place] 3=Moderate Assistance 7=Complete [place] ADL-Treatment Pt refused shower, but states he needs to use the restroom. Supine to sit with supervision. Pt refused use of gait belt for safety. Transfer to w/c with CGA for balance. To restroom via w/c. Pt transferred w/c <-> toilet with CGA. Pt requests assist for hygiene before even attempting to complete. When encouraged , pt able to reluctantly complete hygiene with minimal assistance. Pt able to manage clothing up/down with CGA for balance. Pt transferred to EOB, agrees to sponge bath. Pt doffed shirt and washed upper body with SBA. Donned shirt with SBA. Pt refused to doff pants for sponge bath, but pulled pant legs up and washed lower legs with SBA. Did not remove socks to wash feet. Declined further ADL activity. Pt requires much education regarding role of therapy and benefits of participation. Pt requires encouragement to participate. Functional [place] Measure 0=Not Assessed/NA 4=Minimal Assistance 1=Total Assistance 5=Supervision or Setup 2=Maximal Assistance 6=Modified [place] 3=Moderate Assistance 7=Complete IndependenceIRFPAI Quality Coding Scale 6 Independent with activity with or without an assistive device 5 Patient requires set up or clean up by helper. Patient completes activity by themselves 4 Supervision or touching assist (CGA). [place] provide cues , steadying assist 3 The helper provides less than half the effort to complete the activity 2 The helper provides more than half the effort to complete the activity 1 Dependent. The helper does all the effort to complete an activity 7 Patient refused to complete or attempt activity 9 The patient did not perform the activity before the current illness or injury 88 Not attempted due to Medical conditions or safety concerns Other Treatment Pt performed w/c mobility to therapy gym with SBA and increased time. Pt completed arm bike activity [id number] to increase overall activity tolerance and strength needed for functional tasks. Pt completed activity with minimal resistance and slow pace. Occasional rest breaks taken. Pt returned to room, resting in bed with needs met after session. OT Short Term Goals Short Term Goals Time Frame: Sep 09, 2018 Eating(FIM): 5 Grooming(FIM): 5 Bathing(FIM): 4 Upper Body Dressing(FIM): 4 Lower Body Dressing(FIM): 3 Toileting(FIM): 4 Transfers (B,C,W/C) (FIM): 4 (et) Toilet/Commode Transfer(FIM): 4 Shower Transfer(FIM): 3 Additional Short Term Goals: 1-Demonstrate ADL Tasks, 2-Verbalize Understanding , 3-ImproveStrength/Ana 1=Demonstrate adherence to instructed precautions during ADL tasks. 2=Patient will verbalize/demonstrate understanding of assistive devices/ modifications for ADL. 3=Patient will improve strength/tolerance for activity to enable patient to perform ADL's. OT Usp Goals Assembler Seat Goals Time Frame: Sep 23, 2018 Eating (FIM): 6 Eating (QC): 6 Groomin Oral Hygiene (QC): 6 Bathing(FIM): 5 Shower/Bathe Self (QC): 4 Upper Body Dressing(FIM): 5 Upper Body Dressing (QC): 5 Lower Body Dressing(FIM): 4 Lower Body Dressing (QC): 4 On/Off Footwear (QC): 4 Toileting(FIM): 5 Toileting Hygiene (QC): 5 Transfers (B,C,W/C) (FIM): 6 Toilet/Commode Transfer(FIM): 6 Toilet/Commode Transfer (QC): 6 Shower Transfer(FIM): 5 Additional Goals: 1-Demonstrate ADL Tasks, 2-Verbalize Understanding, 3- ImproveStrength/Ana 1=Demonstrate adherence to instructed precautions during ADL tasks. 2=Patient will verbalize/demonstrate understanding of assistive devices/ modifications for ADL. 3=Patient will improve strength/tolerance for activity to enable patient to perform ADL's. OT Education/Plan Discharge Recommendations Plan/Recommendations: Continue POC Treatment Plan/Plan of Care Patient would benefit from OT for education, treatment and training to promote independence in ADL's, mobility, safety and/or upper extremity function for ADL' s. Plan of Care: ADL Retraining, Functional Mobility, Group Exercise/Act as Ind, UE Funct Exercise/Act Treatment Duration: Sep 23, 2018 Frequency: At least 5 of 7 days/Wk (IRF) Estimated Hrs Per Day: 1.5 hours per day Agreement: Yes Rehab Potential: Fair Time/GCodes Start Time: 10:15 Stop Time: 11:15 Total Time Billed (hr/min): 60 Billed Treatment Time 1 visit, ADLx3(45minutes), EX(15minutes) [address] OT Aug 31, 2018 12:18
--- NOTE | 2018-08-31 13:13 | Physical Therapy Progress Note ---
Therapy Progress Note Patient refused physical therapy this afternoon. Patient states that he is tired and doesn't feel well and is not going to do it the rest of the day. Explained to patient the minute requirements in order to stay on rehab. Patient asked if he will be kicked out if he doesn't get all the minutes, therapist answers "possibly", patient states "that would be fine with me". BEKAH MALONE PT Aug 31, 2018 13:13
[2018-08-31] MEDS: IBUPROFEN TABLET 200 MG TAB PO PRN (13:37)
--- NOTE | 2018-08-31 14:00 | Physical Therapy Daily Note ---
PT Daily Note-Current Subjective 15 minutes after refusing treatment, patient came rolling up to therapist in his wheelchair stating that he thought he should work even though he felt bad, he said he hoped he wouldn't puke while working with PT. Appearance Patient in bed post tx with nurse call, phone, tray, all needs met. Mental Status Patient Orientation: Normal For Age Attachments: Yeboah Catheter Transfers Functional [place] Measure 0=Not Assessed/NA 4=Minimal Assistance 1=Total Assistance 5=Supervision or Setup 2=Maximal Assistance 6=Modified [place] 3=Moderate Assistance 7=Complete IndependenceIRFPAI Quality Coding Scale 6 Independent with activity with or without an assistive device 5 Patient requires set up or clean up by helper. Patient completes activity by themselves 4 Supervision or touching assist (CGA). [place] provide cues , steadying assist 3 The helper provides less than half the effort to complete the activity 2 The helper provides more than half the effort to complete the activity 1 Dependent. The helper does all the effort to complete an activity 7 Patient refused to complete or attempt activity 9 The patient did not perform the activity before the current illness or injury 88 Not attempted due to Medical conditions or safety concerns Transfers (B, C, W/C) (FIM): 5 Scootin Rollin Supine to/from Sit: 5 Sit to/from Stand: 5 Bed to/from Chair: 5 Weight Bearing Right Lower Extremity: Right Full Weight Bearing Left Lower Extremity: Left Full Weight Bearing Wheelchair Training Wheelchair (FIM): 5 Distance: 150'x2 Type of Wheelchair: Manual Exercises Seated Therapy Exercises: Ankle pumps, Hip flexion Seated Reps: 20 LAQ alternating for 5 min. Patient attempted to stand and perform exercises in the parallel bars but was too shaky and weak to perform even heel raises. Preferred to perform seated exercises. Treatments bed mobility and transfers, functional strengthening, wheelchair mobility Assessment Current Status: Poor Progress no ambulation, patient shaky and ill PT Short Term Goals Short Term Goals Time Frame: Sep 02, 2018 Transfers (B,C,W/C) (FIM): 4 (et) Gait (FIM): 4 (met) Distance (FIM): 3=150 ft Gait Assistive Device: FWW Wheelchair Distance: 150'x2 PT Chemical Dependency Counselor Goals Long-Term Goals PT Chemical Dependency Counselor Goals Time Frame: Sep 11, 2018 Transfers (B,C,W/C) (FIM): 7 Sit to Lying (QC): 6 Lying-Sitting on Side/Bed(QC): 6 Sit to Stand (QC): 6 Rollin Roll Left to Right (QC): 6 Chair/Sfk-ni-Hwrxk Xfer(QC): 6 Car Transfer (QC): 6 Does the Patient Walk: Yes Gait (FIM): 6 Gait distance (FIM): 3=150 ft Walk 10 feet (QC): 6 Walk 10ft-Uneven Surface(QC): 6 Walk 50ft with 2 Turns (QC): 6 Walk 150 ft (QC): 6 Gait Assistive Device: FWW Does the Pt use WC or Scooter?: No Stairs (FIM): 5 # of Steps: 4 1 Step (curb) (QC): 6 4 Steps (QC): 6 12 Steps (QC): 88 Picking up an Object (QC): 4 PT Plan Problem List Problem List: Activity Tolerance, Functional Strength, Safety, Balance, Gait, Transfer, Bed Mobility, ROM Treatment/Plan Treatment Plan: Continue Plan of Care Treatment Plan: Bed Mobility, Education, Functional Activity Ana, Functional Strength, Group Therapy, Gait, Safety, Therapeutic Exercise, Transfers Treatment Duration: Sep 11, 2018 Frequency: At least 5 of 7 days/Wk (IRF) Estimated Hrs Per Day: 1.5 hours per day Patient and/or Family Agrees t: Yes Safety Risks/Education Patient Education: Transfer Techniques, Correct Positioning, W/C Management, Safety Issues Teaching Recipient: Patient Teaching Methods: Demonstration, Discussion Response to Teaching: Reinforcement Needed Time/GCodes Time In: 1315 Time Out: 1330 Total Billed Treatment Time: 15 Total Billed Treatment 1 visit EX BEKAH [place] PT Aug 31, 2018 14:00
--- NOTE | 2018-08-31 14:05 | PM & R (SOAP) Progress Note ---
Subjective This was a face to face visit with the patient. Date Seen by Provider: Aug 31, 2018 Time Seen by Provider: 07:50 Subjective/Events-last exam Patient was seen in his room this AM Patient SBA for transfers Objective Physician Exam Last Set of Vital Signs Vital Signs Date Time Temp Pulse Resp B/P (MAP) Pulse Ox O2 Delivery O2 Flow Rate FiO2 08/31/18 09:23 Room Air 08/31/18 05:05 98.0 79 18 156/84 (108) 97 Capillary Refill : I&O Intake and Output 08/31/18 00:00 Intake Total 1850 ml Output Total 2000 ml Balance -150 ml Intake Oral 1850 ml Output Urine Total 2000 ml # Bowel Movements 3 General: Alert, Oriented X3, Cooperative, No Acute Distress HEENT: Atraumatic, PERRLA, EOMI, Mucous Memb Moist/[place] Neck: Supple, No JVD Lungs: Clear to Auscultation Heart: Regular Rate Abdomen: Normal Bowel Sounds, Soft, No Tenderness Extremities: No Edema Skin: Other (MASD of the perineal area) Neuro: Other (BL limbs strength 3+5 Sensation intact Strength Both Upper limbs 4/5 Cognition intact) Psych/Mental Status: Mental Status NL Assessment/Plan Assessment and Plan 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
--- NOTE | 2018-08-31 14:39 | Occupational Ther Daily Note ---
OT Current Status-Daily Note Subjective Pt in bed, states he is tired. Requires encouragement to participate. Mental Status/Objective Functional [place] Measure 0=Not Assessed/NA 4=Minimal Assistance 1=Total Assistance 5=Supervision or Setup 2=Maximal Assistance 6=Modified [place] 3=Moderate Assistance 7=Complete [place] ADL-Treatment Functional [place] Measure 0=Not Assessed/NA 4=Minimal Assistance 1=Total Assistance 5=Supervision or Setup 2=Maximal Assistance 6=Modified [place] 3=Moderate Assistance 7=Complete IndependenceIRFPAI Quality Coding Scale 6 Independent with activity with or without an assistive device 5 Patient requires set up or clean up by helper. Patient completes activity by themselves 4 Supervision or touching assist (CGA). [place] provide cues , steadying assist 3 The helper provides less than half the effort to complete the activity 2 The helper provides more than half the effort to complete the activity 1 Dependent. The helper does all the effort to complete an activity 7 Patient refused to complete or attempt activity 9 The patient did not perform the activity before the current illness or injury 88 Not attempted due to Medical conditions or safety concerns Other Treatment Supine to sit with supervision. Transfer to w/c with close supervision. Pt performed w/c mobility to therapy gym with increased time. Occasional rest breaks. Pt completed fine motor task with pegs with 1# weights in place on bilateral UE to increase strength and coordination/manipulation skills. Pt required increased time for task and took rest breaks as needed. 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 Pt returned to room, transferred to bed with supervision. Pt able to reposition self in bed. Pt resting in bed with needs met and bed alarm on after session. OT Short Term Goals Short Term Goals Time Frame: Sep 09, 2018 Eating(FIM): 5 Grooming(FIM): 5 Bathing(FIM): 4 Upper Body Dressing(FIM): 4 Lower Body Dressing(FIM): 3 Toileting(FIM): 4 Transfers (B,C,W/C) (FIM): 4 (et) Toilet/Commode Transfer(FIM): 4 Shower Transfer(FIM): 3 Additional Short Term Goals: 1-Demonstrate ADL Tasks, 2-Verbalize Understanding , 3-ImproveStrength/Ana 1=Demonstrate adherence to instructed precautions during ADL tasks. 2=Patient will verbalize/demonstrate understanding of assistive devices/ modifications for ADL. 3=Patient will improve strength/tolerance for activity to enable patient to perform ADL's. OT Care Home Goals Care Home Goals Time Frame: Sep 23, 2018 Eating (FIM): 6 Eating (QC): 6 Groomin Oral Hygiene (QC): 6 Bathing(FIM): 5 Shower/Bathe Self (QC): 4 Upper Body Dressing(FIM): 5 Upper Body Dressing (QC): 5 Lower Body Dressing(FIM): 4 Lower Body Dressing (QC): 4 On/Off Footwear (QC): 4 Toileting(FIM): 5 Toileting Hygiene (QC): 5 Transfers (B,C,W/C) (FIM): 6 Toilet/Commode Transfer(FIM): 6 Toilet/Commode Transfer (QC): 6 Shower Transfer(FIM): 5 Additional Goals: 1-Demonstrate ADL Tasks, 2-Verbalize Understanding, 3- ImproveStrength/Ana 1=Demonstrate adherence to instructed precautions during ADL tasks. 2=Patient will verbalize/demonstrate understanding of assistive devices/ modifications for ADL. 3=Patient will improve strength/tolerance for activity to enable patient to perform ADL's. OT Education/Plan Discharge Recommendations Plan/Recommendations: Continue POC Treatment Plan/Plan of Care Patient would benefit from OT for education, treatment and training to promote independence in ADL's, mobility, safety and/or upper extremity function for ADL' s. Plan of Care: ADL Retraining, Functional Mobility, Group Exercise/Act as Ind, UE Funct Exercise/Act Treatment Duration: Sep 23, 2018 Frequency: At least 5 of 7 days/Wk (IRF) Estimated Hrs Per Day: 1.5 hours per day Agreement: Yes Rehab Potential: Fair Time/GCodes Start Time: 14:00 Stop Time: 14:30 Total Time Billed (hr/min): 30 Billed Treatment Time 1 visit, EXx2(30minutes) [address] OT Aug 31, 2018 14:39
[2018-08-31 15:49] VITALS: BP 128/78
[2018-09-01 06:08] VITALS: BP 132/81
[2018-09-01] MEDS: KCL 20 MEQ TAB (K-DUR) PO SCH (07:27)
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
--- NOTE | 2018-09-01 08:41 | PM & R (SOAP) Progress Note ---
Subjective This was a face to face visit with the patient. Date Seen by Provider: Sep 01, 2018 Time Seen by Provider: 08:00 Subjective/Events-last exam Patient was seen in his room this AM declined some therapy yesterday will encourage patient to participate. Appreciate [facility] consult .Patient SBA for transfers Objective Physician Exam Last Set of Vital Signs Vital Signs Date Time Temp Pulse Resp B/P (MAP) Pulse Ox O2 Delivery O2 Flow Rate FiO2 09/01/18 06:08 98.2 78 18 132/81 (98) 97 Room Air Capillary Refill : I&O Intake and Output 09/01/18 00:00 Intake Total 1200 ml Output Total 2000 ml Balance -800 ml Intake Oral 1200 ml Output Urine Total 2000 ml # Bowel Movements 5 General: Alert, Oriented X3, Cooperative, No Acute Distress HEENT: Atraumatic, PERRLA, EOMI, Mucous Memb Moist/[place] Neck: Supple, No JVD Lungs: Clear to Auscultation Heart: Regular Rate Abdomen: Normal Bowel Sounds, Soft, No Tenderness Extremities: No Edema Skin: Other (MASD of the perineal area) Neuro: Other (BL limbs strength 3+5 Sensation intact Strength Both Upper limbs 4/5 Cognition intact) Psych/Mental Status: Mental Status NL Assessment/Plan Assessment and Plan 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
[2018-09-01] MEDS: ZINC OXIDE 16% OINT (BUTT PASTE) 113 GM TUBE TOP SCH ×3 (10:44→20:31)
[2018-09-01] MEDS: HYDROcodone/APAP 10 MG/325 MG (LORTAB) TAB PO PRN (10:50)
--- NOTE | 2018-09-01 12:04 | Physical Therapy Daily Note ---
PT Daily Note-Current Subjective Pt. very hesitant to participate in therapy. States he has steps and railing at home he will have to go up to get in his trailer but declines trying them here today. States he only walks inside his trailer and never goes very far, never out in public etc. States he uses a FWW at home but really likes using the w/c here "its so much easier" Pt. needed much coaxing to participate in PT. and was very limited on what he would do Pain Numeric Pain Scale: 4 Location: Medial Location Body Site: Neck Pain Description: Ache Appearance frail and thin Mental Status Patient Orientation: Person, Place, Time, Situation Transfers Functional [place] Measure 0=Not Assessed/NA 4=Minimal Assistance 1=Total Assistance 5=Supervision or Setup 2=Maximal Assistance 6=Modified [place] 3=Moderate Assistance 7=Complete IndependenceIRFPAI Quality Coding Scale 6 Independent with activity with or without an assistive device 5 Patient requires set up or clean up by helper. Patient completes activity by themselves 4 Supervision or touching assist (CGA). [place] provide cues , steadying assist 3 The helper provides less than half the effort to complete the activity 2 The helper provides more than half the effort to complete the activity 1 Dependent. The helper does all the effort to complete an activity 7 Patient refused to complete or attempt activity 9 The patient did not perform the activity before the current illness or injury 88 Not attempted due to Medical conditions or safety concerns Transfers (B, C, W/C) (FIM): 5 Scootin Rollin Supine to/from Sit: 6 Sit to/from Stand: 5 Bed to/from Chair: 5 (needs cues and instruction for safety) Weight Bearing Right Lower Extremity: Right Full Weight Bearing Left Lower Extremity: Left Full Weight Bearing Gait Training Does the Patient Walk?: Yes Gait (FIM): 1 Distance (FIM): 1=up to 49 ft (45ft) Gait Level of Assist: 4 Gait Persons Needed: 1 Gait Assistive Device: FWW pt. ambulated approx 35 feet and then began to shake and stated he needed the w/ c or the hallway rail. w/c was brought to pt. HR 134 , O2 sats 92% Wheelchair Training Does the Pt Use a Wheelchair?: Yes Wheelchair (FIM): 4 Wheelchair Distance: 3=150 ft (x2) Wheelchair Level of Assist: 4 (occas assist for brakes) Type of Wheelchair: Manual pt. appears SOB after 150 ft w/c propulsion Stair Training pt. refused stair training Exercises Supine Ex: Bridging, Ankle pumps, Rolling, Heel Slides, Scooting, Straight leg raise, Hip abd/add Supine Reps: 15 Seated Therapy Exercises: Ankle pumps, Sit to stand, Long arc quads, Hip flexion Seated Reps: 12 NuStep Minutes: 10 NuStep Workload: 1 Assessment Current Status: Fair Progress long discussion with pt. regarding expectations of rehab and the functional expectations to be able to return to his own home with steps and some ambulation for daily living. Pt. insists he can do this when he gets home but wont trial it here. PT Short Term Goals Short Term Goals Time Frame: Sep 02, 2018 Transfers (B,C,W/C) (FIM): 4 (et) Gait (FIM): 4 (met) Distance (FIM): 3=150 ft Gait Assistive Device: FWW Wheelchair Distance: 150'x2 PT Longterm Goals Longterm Goals PT Longterm Goals Time Frame: Sep 11, 2018 Transfers (B,C,W/C) (FIM): 7 Sit to Lying (QC): 6 Lying-Sitting on Side/Bed(QC): 6 Sit to Stand (QC): 6 Rollin Roll Left to Right (QC): 6 Chair/Vri-qs-Ntimz Xfer(QC): 6 Car Transfer (QC): 6 Does the Patient Walk: Yes Gait (FIM): 6 Gait distance (FIM): 3=150 ft Walk 10 feet (QC): 6 Walk 10ft-Uneven Surface(QC): 6 Walk 50ft with 2 Turns (QC): 6 Walk 150 ft (QC): 6 Gait Assistive Device: FWW Does the Pt use WC or Scooter?: No Stairs (FIM): 5 # of Steps: 4 1 Step (curb) (QC): 6 4 Steps (QC): 6 12 Steps (QC): 88 Picking up an Object (QC): 4 PT Plan Treatment/Plan Treatment Plan: Continue Plan of Care Treatment Plan: Bed Mobility, Education, Functional Activity Ana, Functional Strength, Group Therapy, Gait, Safety, Therapeutic Exercise, Transfers Treatment Duration: Sep 11, 2018 Frequency: At least 5 of 7 days/Wk (IRF) Estimated Hrs Per Day: 1.5 hours per day Patient and/or Family Agrees t: Yes Safety Risks/Education Patient Education: Gait Training, Transfer Techniques, Correct Positioning, W/ C Management, Disease Process, Safety Issues Teaching Recipient: Patient Teaching Methods: Demonstration, Discussion Response to Teaching: Verbalize Understanding, Unable to Comprehend, Reinforcement Needed Time/GCodes Time In: 1100 Time Out: 1200 Total Billed Treatment Time: 60 Total Billed Treatment 1,FA30m,GT10m,EX20m G Codes Necessary: ANH Victoria CUSTOM HOME INSTALLER Sep 01, 2018 12:04
[2018-09-01] MEDS ORDERED: RT-ALBUTEROL/IPRATROPIUM 3 ML (DUONEB) VIAL ONE (12:21)
--- NOTE | 2018-09-01 12:45 | Occupational Ther Daily Note ---
OT Current Status-Daily Note Subjective Pt in bed, requires much encouragement to participate. With encouragement from therapist and RN pt agrees to participate. Mental Status/Objective Functional [place] Measure 0=Not Assessed/NA 4=Minimal Assistance 1=Total Assistance 5=Supervision or Setup 2=Maximal Assistance 6=Modified [place] 3=Moderate Assistance 7=Complete [place] Attachments: Yeboah Catheter ADL-Treatment Pt supine to sit with supervision. Pt performed gait to restroom with FWW. Transfer to walk in shower with min assist and skilled cues for safety. Pt sat on shower bench for bathing. Pt refused to use soap, but washed all areas using washcloth. Min assist for balance during lower body bathing. Don pullover shirt with set up. Transfer to shower bench to w/c with min assist for safety. Pt states he needs to complete LE dressing in bed and would not attempt while sitting in w/c. Transfer to bed with supervision. Assist required to thread catheter through pant leg. Pt then able to don pants, min assist to pull up in back. Pt donned left sock with set up, but then requested therapist don right sock. Pt became upset when encouraged to attempt task to increase independence, but was able to don socks with set up. Increased time to complete ADL tasks. Functional [place] Measure 0=Not Assessed/NA 4=Minimal Assistance 1=Total Assistance 5=Supervision or Setup 2=Maximal Assistance 6=Modified [place] 3=Moderate Assistance 7=Complete IndependenceIRFPAI Quality Coding Scale 6 Independent with activity with or without an assistive device 5 Patient requires set up or clean up by helper. Patient completes activity by themselves 4 Supervision or touching assist (CGA). [place] provide cues , steadying assist 3 The helper provides less than half the effort to complete the activity 2 The helper provides more than half the effort to complete the activity 1 Dependent. The helper does all the effort to complete an activity 7 Patient refused to complete or attempt activity 9 The patient did not perform the activity before the current illness or injury 88 Not attempted due to Medical conditions or safety concerns Bathing (FIM): 4 Upper Body (FIM): 5 Lower Body Dressing (FIM): 4 Shower Transfer(FIM): 4 Other Treatment Pt performed w/c mobility to therapy gym with SBA. Pt completed UE exercises to increase strength needed for ADLs and transfers. Pt performed 3 exercises x10 reps with 2# dowel tamar. Rest breaks between exercises and skilled cues for proper exercise technique. Pt returned to room, transferred to bed with supervision. Pt resting in bed with needs met after session. OT Short Term Goals Short Term Goals Time Frame: Sep 09, 2018 Eating(FIM): 5 Grooming(FIM): 5 Bathing(FIM): 4 Upper Body Dressing(FIM): 4 Lower Body Dressing(FIM): 3 Toileting(FIM): 4 Transfers (B,C,W/C) (FIM): 4 (et) Toilet/Commode Transfer(FIM): 4 Shower Transfer(FIM): 3 Additional Short Term Goals: 1-Demonstrate ADL Tasks, 2-Verbalize Understanding , 3-ImproveStrength/Ana 1=Demonstrate adherence to instructed precautions during ADL tasks. 2=Patient will verbalize/demonstrate understanding of assistive devices/ modifications for ADL. 3=Patient will improve strength/tolerance for activity to enable patient to perform ADL's. OT Halfway Goals Halfway Goals Time Frame: Sep 23, 2018 Eating (FIM): 6 Eating (QC): 6 Groomin Oral Hygiene (QC): 6 Bathing(FIM): 5 Shower/Bathe Self (QC): 4 Upper Body Dressing(FIM): 5 Upper Body Dressing (QC): 5 Lower Body Dressing(FIM): 4 Lower Body Dressing (QC): 4 On/Off Footwear (QC): 4 Toileting(FIM): 5 Toileting Hygiene (QC): 5 Transfers (B,C,W/C) (FIM): 6 Toilet/Commode Transfer(FIM): 6 Toilet/Commode Transfer (QC): 6 Shower Transfer(FIM): 5 Additional Goals: 1-Demonstrate ADL Tasks, 2-Verbalize Understanding, 3- ImproveStrength/Ana 1=Demonstrate adherence to instructed precautions during ADL tasks. 2=Patient will verbalize/demonstrate understanding of assistive devices/ modifications for ADL. 3=Patient will improve strength/tolerance for activity to enable patient to perform ADL's. OT Education/Plan Discharge Recommendations Plan/Recommendations: Continue POC Treatment Plan/Plan of Care Patient would benefit from OT for education, treatment and training to promote independence in ADL's, mobility, safety and/or upper extremity function for ADL' s. Plan of Care: ADL Retraining, Functional Mobility, Group Exercise/Act as Ind, UE Funct Exercise/Act Treatment Duration: Sep 23, 2018 Frequency: At least 5 of 7 days/Wk (IRF) Estimated Hrs Per Day: 1.5 hours per day Agreement: Yes Rehab Potential: Fair Time/GCodes Start Time: 10:00 Stop Time: 11:00 Total Time Billed (hr/min): 60 Billed Treatment Time 1 visit, ADLx3(45minutes), EX(15minutes) [address] OT Sep 01, 2018 12:45
--- NOTE | 2018-09-01 13:27 | Occupational Ther Daily Note ---
OT Current Status-Daily Note Subjective Pt in bed, agrees to therapy with encouragement. Mental Status/Objective Functional [place] Measure 0=Not Assessed/NA 4=Minimal Assistance 1=Total Assistance 5=Supervision or Setup 2=Maximal Assistance 6=Modified [place] 3=Moderate Assistance 7=Complete [place] ADL-Treatment Functional [place] Measure 0=Not Assessed/NA 4=Minimal Assistance 1=Total Assistance 5=Supervision or Setup 2=Maximal Assistance 6=Modified [place] 3=Moderate Assistance 7=Complete IndependenceIRFPAI Quality Coding Scale 6 Independent with activity with or without an assistive device 5 Patient requires set up or clean up by helper. Patient completes activity by themselves 4 Supervision or touching assist (CGA). [place] provide cues , steadying assist 3 The helper provides less than half the effort to complete the activity 2 The helper provides more than half the effort to complete the activity 1 Dependent. The helper does all the effort to complete an activity 7 Patient refused to complete or attempt activity 9 The patient did not perform the activity before the current illness or injury 88 Not attempted due to Medical conditions or safety concerns Other Treatment Pt supine to sit with supervision. Transfer to w/c with close supervision. Pt performed w/c mobility to therapy gym with SBA. Pt performed bilateral UE exercises to increase strength needed for ADLs and transfers. Pt completed 4 exercises x10 reps with red theraband. Pt requires skilled cues for proper exercise technique. At one point pt became upset during exercise instruction and threw theraband. Education provided regarding importance of proper exercise technique.Pt resumed exercises and states "I know how to do it!" Rest breaks taken between exercises. Pt returned to room and transferred to bed with SBA. Sit to supine with SBA. Pt resting in bed with needs met after session. OT Short Term Goals Short Term Goals Time Frame: Sep 09, 2018 Eating(FIM): 5 Grooming(FIM): 5 Bathing(FIM): 4 Upper Body Dressing(FIM): 4 Lower Body Dressing(FIM): 3 Toileting(FIM): 4 Transfers (B,C,W/C) (FIM): 4 (et) Toilet/Commode Transfer(FIM): 4 Shower Transfer(FIM): 3 Additional Short Term Goals: 1-Demonstrate ADL Tasks, 2-Verbalize Understanding , 3-ImproveStrength/Ana 1=Demonstrate adherence to instructed precautions during ADL tasks. 2=Patient will verbalize/demonstrate understanding of assistive devices/ modifications for ADL. 3=Patient will improve strength/tolerance for activity to enable patient to perform ADL's. OT Mcc Goals Mcc Goals Time Frame: Sep 23, 2018 Eating (FIM): 6 Eating (QC): 6 Groomin Oral Hygiene (QC): 6 Bathing(FIM): 5 Shower/Bathe Self (QC): 4 Upper Body Dressing(FIM): 5 Upper Body Dressing (QC): 5 Lower Body Dressing(FIM): 4 Lower Body Dressing (QC): 4 On/Off Footwear (QC): 4 Toileting(FIM): 5 Toileting Hygiene (QC): 5 Transfers (B,C,W/C) (FIM): 6 Toilet/Commode Transfer(FIM): 6 Toilet/Commode Transfer (QC): 6 Shower Transfer(FIM): 5 Additional Goals: 1-Demonstrate ADL Tasks, 2-Verbalize Understanding, 3- ImproveStrength/Ana 1=Demonstrate adherence to instructed precautions during ADL tasks. 2=Patient will verbalize/demonstrate understanding of assistive devices/ modifications for ADL. 3=Patient will improve strength/tolerance for activity to enable patient to perform ADL's. OT Education/Plan Discharge Recommendations Plan/Recommendations: Continue POC Treatment Plan/Plan of Care Patient would benefit from OT for education, treatment and training to promote independence in ADL's, mobility, safety and/or upper extremity function for ADL' s. Plan of Care: ADL Retraining, Functional Mobility, Group Exercise/Act as Ind, UE Funct Exercise/Act Treatment Duration: Sep 23, 2018 Frequency: At least 5 of 7 days/Wk (IRF) Estimated Hrs Per Day: 1.5 hours per day Agreement: Yes Rehab Potential: Fair Time/GCodes Start Time: 13:00 Stop Time: 13:30 Total Time Billed (hr/min): 30 Billed Treatment Time 1 visit, EXx2(30minutes) [address] OT Sep 01, 2018 13:27
--- NOTE | 2018-09-01 14:14 | Physical Therapy Daily Note ---
PT Daily Note-Current Subjective Pt. in bed, states he is ready for some lunch. Agrees to only some ther ex in bed. Pt. stops and needs much encouragement to continue. Pt. c/o dizziness laying down and states he relates it to his neck/cervical issues Pain Numeric Pain Scale: 4 Location: Medial Location Body Site: Neck Pain Description: Ache Mental Status Patient Orientation: Person, Place, Time Transfers Functional [place] Measure 0=Not Assessed/NA 4=Minimal Assistance 1=Total Assistance 5=Supervision or Setup 2=Maximal Assistance 6=Modified [place] 3=Moderate Assistance 7=Complete IndependenceIRFPAI Quality Coding Scale 6 Independent with activity with or without an assistive device 5 Patient requires set up or clean up by helper. Patient completes activity by themselves 4 Supervision or touching assist (CGA). [place] provide cues , steadying assist 3 The helper provides less than half the effort to complete the activity 2 The helper provides more than half the effort to complete the activity 1 Dependent. The helper does all the effort to complete an activity 7 Patient refused to complete or attempt activity 9 The patient did not perform the activity before the current illness or injury 88 Not attempted due to Medical conditions or safety concerns sup to sit and sit to sup as well as scooting up in bed mod I Weight Bearing Right Lower Extremity: Right Full Weight Bearing Left Lower Extremity: Left Full Weight Bearing Gait Training pt. declined out of bed this afternoon rx Exercises Supine Ex: Ankle pumps, Quad Set, Rolling, Glut sets, Heel Slides, Scooting, Straight leg raise, Hip abd/add Supine Reps: 10 (x2) Assessment Current Status: Fair Progress unmotivated, unrealistic about his function and safety PT Short Term Goals Short Term Goals Time Frame: Sep 02, 2018 Transfers (B,C,W/C) (FIM): 4 (et) Gait (FIM): 4 (met) Distance (FIM): 3=150 ft Gait Assistive Device: FWW Wheelchair Distance: 150'x2 PT Radar Repairer Goals [place] Goals PT Radar Repairer Goals Time Frame: Sep 11, 2018 Transfers (B,C,W/C) (FIM): 7 Sit to Lying (QC): 6 Lying-Sitting on Side/Bed(QC): 6 Sit to Stand (QC): 6 Rollin Roll Left to Right (QC): 6 Chair/Jsu-se-Blqbx Xfer(QC): 6 Car Transfer (QC): 6 Does the Patient Walk: Yes Gait (FIM): 6 Gait distance (FIM): 3=150 ft Walk 10 feet (QC): 6 Walk 10ft-Uneven Surface(QC): 6 Walk 50ft with 2 Turns (QC): 6 Walk 150 ft (QC): 6 Gait Assistive Device: FWW Does the Pt use WC or Scooter?: No Stairs (FIM): 5 # of Steps: 4 1 Step (curb) (QC): 6 4 Steps (QC): 6 12 Steps (QC): 88 Picking up an Object (QC): 4 PT Plan Treatment/Plan Treatment Plan: Continue Plan of Care Treatment Plan: Bed Mobility, Education, Functional Activity Ana, Functional Strength, Group Therapy, Gait, Safety, Therapeutic Exercise, Transfers Treatment Duration: Sep 11, 2018 Frequency: At least 5 of 7 days/Wk (IRF) Estimated Hrs Per Day: 1.5 hours per day Patient and/or Family Agrees t: Yes Safety Risks/Education Patient Education: Safety Issues Time/GCodes Time In: 1335 Time Out: 1405 Total Billed Treatment Time: 30 Total Billed Treatment 1,FA10m,EX20m G Codes Necessary: No ANH HEWITT VENEER DRIER Sep 01, 2018 14:14
[2018-09-01 17:30] VITALS: BP_SYST 142; BP_SYST 144; BP_DIAS 77; BP_DIAS 85
[2018-09-01] MEDS: RT-ALBUTEROL/IPRATROPIUM 3 ML (DUONEB) VIAL INH SCH (19:22)
[2018-09-02 05:53] VITALS: BP 138/73
[2018-09-02] MEDS: KCL 20 MEQ TAB (K-DUR) PO SCH (06:31)
[2018-09-02] MEDS: RT-ALBUTEROL/IPRATROPIUM 3 ML (DUONEB) VIAL INH SCH ×2 (06:42→19:41)
--- NOTE | 2018-09-02 08:27 | PM & R (SOAP) Progress Note ---
Subjective This was a face to face visit with the patient. Date Seen by Provider: Sep 02, 2018 Time Seen by Provider: 07:50 Subjective/Events-last exam Patient was seen in his room this AM Patient SBA to Modified Independent for transfers Objective Physician Exam Last Set of Vital Signs Vital Signs Date Time Temp Pulse Resp B/P (MAP) Pulse Ox O2 Delivery O2 Flow Rate FiO2 09/02/18 06:42 95 Room Air 09/02/18 05:53 98.4 71 16 138/73 (94) 09/01/18 11:26 21 Capillary Refill : I&O Intake and Output 09/02/18 00:00 Intake Total 1050 ml Output Total 1650 ml Balance -600 ml Intake Oral 1050 ml Output Urine Total 1650 ml # Bowel Movements 6 General: Alert, Oriented X3, Cooperative, No Acute Distress HEENT: Atraumatic, PERRLA, EOMI, Mucous Memb Moist/Deal Neck: Supple, No JVD Lungs: Clear to Auscultation Heart: Regular Rate Abdomen: Normal Bowel Sounds, Soft, No Tenderness Extremities: No Edema Skin: Other (MASD of the perineal area) Neuro: Other (BL limbs strength 3+5 Sensation intact Strength Both Upper limbs 4/5 Cognition intact) Psych/Mental Status: Mental Status NL Assessment/Plan Assessment and Plan 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
--- NOTE | 2018-09-02 08:58 | Physical Therapy Daily Note ---
PT Daily Note-Current Subjective Patient in bed pre tx, agrees to PT, no complaints of pain. Appearance Patient in bed post tx, has nurse call, phone, tray, all needs met. Mental Status Patient Orientation: Normal For Age Transfers Functional [place] Measure 0=Not Assessed/NA 4=Minimal Assistance 1=Total Assistance 5=Supervision or Setup 2=Maximal Assistance 6=Modified [place] 3=Moderate Assistance 7=Complete IndependenceIRFPAI Quality Coding Scale 6 Independent with activity with or without an assistive device 5 Patient requires set up or clean up by helper. Patient completes activity by themselves 4 Supervision or touching assist (CGA). [place] provide cues , steadying assist 3 The helper provides less than half the effort to complete the activity 2 The helper provides more than half the effort to complete the activity 1 Dependent. The helper does all the effort to complete an activity 7 Patient refused to complete or attempt activity 9 The patient did not perform the activity before the current illness or injury 88 Not attempted due to Medical conditions or safety concerns Transfers (B, C, W/C) (FIM): 5 Scootin Rollin Supine to/from Sit: 6 Sit to/from Stand: 5 Bed to/from Chair: 5 Weight Bearing Right Lower Extremity: Right Full Weight Bearing Left Lower Extremity: Left Full Weight Bearing Gait Training Gait (FIM): 1 Distance: 20'x5 Gait Level of Assist: 5 Gait Persons Needed: 1 Gait Assistive Device: FWW Patient gets SOB with just ambulating 20', gets shaky and needs rest breaks between bouts of ambulation. Wheelchair Training Does the Pt Use a Wheelchair?: Yes Wheelchair (FIM): 6 Distance: 150'x2 Type of Wheelchair: Manual Exercises NuStep Minutes: 15 NuStep Workload: 5 Treatments bed mobility and transfers, ambulation, functional strengthening Assessment Current Status: Fair Progress improved ambulation but gets SOB quickly and needs frequent rest breaks PT Short Term Goals Short Term Goals Time Frame: Sep 02, 2018 Transfers (B,C,W/C) (FIM): 4 (et) Gait (FIM): 4 (met) Distance (FIM): 3=150 ft Gait Assistive Device: FWW Wheelchair Distance: 150'x2 PT Halfway Goals Industrial Controls Technician Goals PT Halfway Goals Time Frame: Sep 11, 2018 Transfers (B,C,W/C) (FIM): 7 Sit to Lying (QC): 6 Lying-Sitting on Side/Bed(QC): 6 Sit to Stand (QC): 6 Rollin Roll Left to Right (QC): 6 Chair/Mhz-gm-Svcoy Xfer(QC): 6 Car Transfer (QC): 6 Does the Patient Walk: Yes Gait (FIM): 6 Gait distance (FIM): 3=150 ft Walk 10 feet (QC): 6 Walk 10ft-Uneven Surface(QC): 6 Walk 50ft with 2 Turns (QC): 6 Walk 150 ft (QC): 6 Gait Assistive Device: FWW Does the Pt use WC or Scooter?: No Stairs (FIM): 5 # of Steps: 4 1 Step (curb) (QC): 6 4 Steps (QC): 6 12 Steps (QC): 88 Picking up an Object (QC): 4 PT Plan Problem List Problem List: Activity Tolerance, Functional Strength, Safety, Balance, Gait, Transfer, Bed Mobility Treatment/Plan Treatment Plan: Continue Plan of Care Treatment Plan: Bed Mobility, Education, Functional Activity Ana, Functional Strength, Group Therapy, Gait, Safety, Therapeutic Exercise, Transfers Treatment Duration: Sep 11, 2018 Frequency: At least 5 of 7 days/Wk (IRF) Estimated Hrs Per Day: 1.5 hours per day Patient and/or Family Agrees t: Yes Safety Risks/Education Patient Education: Gait Training, Transfer Techniques, Correct Positioning, W/ C Management, Safety Issues Teaching Recipient: Patient Teaching Methods: Demonstration, Discussion Response to Teaching: Reinforcement Needed Time/GCodes Time In: 0800 Time Out: 0900 Total Billed Treatment Time: 60 Total Billed Treatment 1 visit GT 30' EX 15' FA 15' BEKAH MALONE PT Sep 02, 2018 08:58
[2018-09-02] MEDS: ZINC OXIDE 16% OINT (BUTT PASTE) 113 GM TUBE TOP SCH ×3 (09:15→19:45)
--- NOTE | 2018-09-02 14:58 | Therapy Group Daily Note ---
Therapy Daily Group Note Patient Education Topic Home Safety Exercises LE Seated Exercise, UE Exercise Other/Notes Pt propelled to PT/OT Group in [facility]. Group consisted of Introduction (Name, Where you are from & What is your favorite season?), Socialization, ARU Explanation/Description, UE/LE EX as well Home Safety. Pt actively participated with Group by completing EX and giving personal examples of Home Safety items and improvements that could be made within pt's home. Group ended with something that Inspires or Motivates you to complete Therapy and get better to discharge home. Pt returns to room at end of tx to rest with all needs met. Start Time: 13:00 Stop Time: 14:15 Total Billed Treatment Time: 75 Total Billed Treatment 1, GRP (75m) BEAU HAYES SCIENTOLOGIST Sep 02, 2018 14:58
--- NOTE | 2018-09-02 15:45 | Occupational Ther Daily Note ---
OT Current Status-Daily Note Subjective No pain reported. Pt. in bed. Agrees to work with OT. Appearance Pt. transfers supine-sit and sit-stand with SBA. Mental Status/Objective Patient Orientation: Person Functional [place] Measure 0=Not Assessed/NA 4=Minimal Assistance 1=Total Assistance 5=Supervision or Setup 2=Maximal Assistance 6=Modified [place] 3=Moderate Assistance 7=Complete [place] ADL-Treatment Functional [place] Measure 0=Not Assessed/NA 4=Minimal Assistance 1=Total Assistance 5=Supervision or Setup 2=Maximal Assistance 6=Modified [place] 3=Moderate Assistance 7=Complete IndependenceIRFPAI Quality Coding Scale 6 Independent with activity with or without an assistive device 5 Patient requires set up or clean up by helper. Patient completes activity by themselves 4 Supervision or touching assist (CGA). [place] provide cues , steadying assist 3 The helper provides less than half the effort to complete the activity 2 The helper provides more than half the effort to complete the activity 1 Dependent. The helper does all the effort to complete an activity 7 Patient refused to complete or attempt activity 9 The patient did not perform the activity before the current illness or injury 88 Not attempted due to Medical conditions or safety concerns Transfers (B, C, W/C) (FIM): 5 Other Treatment Pt. transferred to wheelchair and propelled to therapy gym. Tolerated 15 minutes on armbike at mod resistance with several rest breaks to increase overall strength and independence with daily tasks. After this task, pt. completed fine motor strengthening with nut/bolt activity. Tolerated task in which he took apart, put together nuts/bolts for fine motor strengthening. Pt. reports that his shoulders are "tired" with this task. Self propelled wheelchair back to room. Transferred back to bed with SBA. All needs met. Education OT Patient Education: Correct positioning, Modified ADL techniques, Progress toward Goal/Update tx plan, Purpose of tx/functional activities, Reviewed precautions, Rehab process, Transfer techniques Teaching Recipient: Patient Teaching Methods: Demonstration, Discussion Response to Teaching: Verbalize Understanding, Return Demonstration OT Short Term Goals Short Term Goals Time Frame: Sep 09, 2018 Eating(FIM): 5 Grooming(FIM): 5 Bathing(FIM): 4 Upper Body Dressing(FIM): 4 Lower Body Dressing(FIM): 3 Toileting(FIM): 4 Transfers (B,C,W/C) (FIM): 4 (et) Toilet/Commode Transfer(FIM): 4 Shower Transfer(FIM): 3 Additional Short Term Goals: 1-Demonstrate ADL Tasks, 2-Verbalize Understanding , 3-ImproveStrength/Ana 1=Demonstrate adherence to instructed precautions during ADL tasks. 2=Patient will verbalize/demonstrate understanding of assistive devices/ modifications for ADL. 3=Patient will improve strength/tolerance for activity to enable patient to perform ADL's. OT Skilled Nursing Goals Skilled Nursing Goals Time Frame: Sep 23, 2018 Eating (FIM): 6 Eating (QC): 6 Groomin Oral Hygiene (QC): 6 Bathing(FIM): 5 Shower/Bathe Self (QC): 4 Upper Body Dressing(FIM): 5 Upper Body Dressing (QC): 5 Lower Body Dressing(FIM): 4 Lower Body Dressing (QC): 4 On/Off Footwear (QC): 4 Toileting(FIM): 5 Toileting Hygiene (QC): 5 Transfers (B,C,W/C) (FIM): 6 Toilet/Commode Transfer(FIM): 6 Toilet/Commode Transfer (QC): 6 Shower Transfer(FIM): 5 Additional Goals: 1-Demonstrate ADL Tasks, 2-Verbalize Understanding, 3- ImproveStrength/Ana 1=Demonstrate adherence to instructed precautions during ADL tasks. 2=Patient will verbalize/demonstrate understanding of assistive devices/ modifications for ADL. 3=Patient will improve strength/tolerance for activity to enable patient to perform ADL's. OT Education/Plan Problem List/Assessment Assessment: Decreased Activ Tolerance, Impaired Cognition, Impaired I ADL's, Impaired Self-Care Skills Discharge Recommendations Plan/Recommendations: Continue POC Therapy D/C Recommendations: 24 hr Supervision Treatment Plan/Plan of Care Treatment,Training & Education: Yes Patient would benefit from OT for education, treatment and training to promote independence in ADL's, mobility, safety and/or upper extremity function for ADL' s. Plan of Care: ADL Retraining, Functional Mobility, Group Exercise/Act as Ind, UE Funct Exercise/Act Treatment Duration: Sep 23, 2018 Frequency: At least 5 of 7 days/Wk (IRF) Estimated Hrs Per Day: 1.5 hours per day Agreement: Yes Rehab Potential: Fair Time/GCodes Start Time: 09:00 Stop Time: 10:00 Total Time Billed (hr/min): 60 Billed Treatment Time 1, Ex x 30minutes, FA x 30minutes JOSE CARLOS OCHOA OT Sep 02, 2018 15:44
[2018-09-02 17:45] VITALS: BP 129/85
[2018-09-03 06:00] VITALS: BP 114/75
[2018-09-03] MEDS: KCL 20 MEQ TAB (K-DUR) PO SCH (06:21)
[2018-09-03] MEDS: RT-ALBUTEROL/IPRATROPIUM 3 ML (DUONEB) VIAL INH SCH ×2 (07:00→19:26)
[2018-09-03] MEDS: IBUPROFEN TABLET 200 MG TAB PO PRN (08:06)
[2018-09-03] MEDS: ZINC OXIDE 16% OINT (BUTT PASTE) 113 GM TUBE TOP SCH ×3 (08:06→20:11)
--- NOTE | 2018-09-03 09:00 | Occupational Ther Daily Note ---
OT Current Status-Daily Note Subjective Pt in bed, agrees to treatment. Mental Status/Objective Functional [place] Measure 0=Not Assessed/NA 4=Minimal Assistance 1=Total Assistance 5=Supervision or Setup 2=Maximal Assistance 6=Modified [place] 3=Moderate Assistance 7=Complete [place] ADL-Treatment Pt declined to complete any ADL tasks this morning, states "I just want to go do some therapy." Functional [place] Measure 0=Not Assessed/NA 4=Minimal Assistance 1=Total Assistance 5=Supervision or Setup 2=Maximal Assistance 6=Modified [place] 3=Moderate Assistance 7=Complete IndependenceIRFPAI Quality Coding Scale 6 Independent with activity with or without an assistive device 5 Patient requires set up or clean up by helper. Patient completes activity by themselves 4 Supervision or touching assist (CGA). [place] provide cues , steadying assist 3 The helper provides less than half the effort to complete the activity 2 The helper provides more than half the effort to complete the activity 1 Dependent. The helper does all the effort to complete an activity 7 Patient refused to complete or attempt activity 9 The patient did not perform the activity before the current illness or injury 88 Not attempted due to Medical conditions or safety concerns Other Treatment Supine to sit with modified independence. Transfer EOB to w/c with SBA. Pt performed w/c mobility to therapy gym with SBA. Arm bike x15 minutes to increase overall strength and activity tolerance. Pt completed task with minimal resistance and steady pace. Two brief rest breaks taken during activity. Pt completed arm arc with bilateral UE to increase ROM and activity tolerance. Pt completed task on lowest setting without difficulty. Pt completed resistance pegs activity with bilateral UE to increase strength and coordination /manipulation skills. Pt completed task without assistance and with occasional rest breaks. Education provided throughout treatment about benefits of therapy. Pt returned to room. Transferred to bed with SBA. Pt resting in bed with needs met after session. OT Short Term Goals Short Term Goals Time Frame: Sep 09, 2018 Eating(FIM): 5 Grooming(FIM): 5 Bathing(FIM): 4 Upper Body Dressing(FIM): 4 Lower Body Dressing(FIM): 3 Toileting(FIM): 4 Transfers (B,C,W/C) (FIM): 4 (et) Toilet/Commode Transfer(FIM): 4 Shower Transfer(FIM): 3 Additional Short Term Goals: 1-Demonstrate ADL Tasks, 2-Verbalize Understanding , 3-ImproveStrength/Ana 1=Demonstrate adherence to instructed precautions during ADL tasks. 2=Patient will verbalize/demonstrate understanding of assistive devices/ modifications for ADL. 3=Patient will improve strength/tolerance for activity to enable patient to perform ADL's. OT General Teller Goals Detention Goals Time Frame: Sep 23, 2018 Eating (FIM): 6 Eating (QC): 6 Groomin Oral Hygiene (QC): 6 Bathing(FIM): 5 Shower/Bathe Self (QC): 4 Upper Body Dressing(FIM): 5 Upper Body Dressing (QC): 5 Lower Body Dressing(FIM): 4 Lower Body Dressing (QC): 4 On/Off Footwear (QC): 4 Toileting(FIM): 5 Toileting Hygiene (QC): 5 Transfers (B,C,W/C) (FIM): 6 Toilet/Commode Transfer(FIM): 6 Toilet/Commode Transfer (QC): 6 Shower Transfer(FIM): 5 Additional Goals: 1-Demonstrate ADL Tasks, 2-Verbalize Understanding, 3- ImproveStrength/Ana 1=Demonstrate adherence to instructed precautions during ADL tasks. 2=Patient will verbalize/demonstrate understanding of assistive devices/ modifications for ADL. 3=Patient will improve strength/tolerance for activity to enable patient to perform ADL's. OT Education/Plan Discharge Recommendations Plan/Recommendations: Continue POC Treatment Plan/Plan of Care Patient would benefit from OT for education, treatment and training to promote independence in ADL's, mobility, safety and/or upper extremity function for ADL' s. Plan of Care: ADL Retraining, Functional Mobility, Group Exercise/Act as Ind, UE Funct Exercise/Act Treatment Duration: Sep 23, 2018 Frequency: At least 5 of 7 days/Wk (IRF) Estimated Hrs Per Day: 1.5 hours per day Agreement: Yes Rehab Potential: Fair Time/GCodes Start Time: 08:00 Stop Time: 09:00 Total Time Billed (hr/min): 60 Billed Treatment Time 1 visit, EXx4(60minutes) [address] OT Sep 03, 2018 09:00
--- NOTE | 2018-09-03 09:23 | PM & R (SOAP) Progress Note ---
Subjective This was a face to face visit with the patient. Date Seen by Provider: Sep 03, 2018 Time Seen by Provider: 08:10 Subjective/Events-last exam Patient was seen in Gym this AM requesting ICY HOT for ARTHRITIC PAIN dISCUSSED WITH RN.Patient SBA to modified Independent for transfers Date Identified: Sep 03, 2018 Time Identified: 08:10 Medication Intervention: Patient uses his own supply of ICY HOT for arthritic pain Review of Systems Musculoskeletal: back pain Objective Physician Exam Last Set of Vital Signs Vital Signs Date Time Temp Pulse Resp B/P (MAP) Pulse Ox O2 Delivery O2 Flow Rate FiO2 09/03/18 08:10 Room Air 09/03/18 07:00 96 09/03/18 06:00 98.4 91 20 114/75 (88) 09/01/18 11:26 21 Capillary Refill : I&O Intake and Output 09/03/18 00:00 Intake Total 1290 ml Output Total 1700 ml Balance -410 ml Intake Oral 1290 ml Output Urine Total 1700 ml # Bowel Movements 1 General: Alert, Oriented X3, Cooperative, No Acute Distress HEENT: Atraumatic, PERRLA, EOMI, Mucous Memb Moist/[place] Neck: Supple, No JVD Lungs: Clear to Auscultation Heart: Regular Rate Abdomen: Normal Bowel Sounds, Soft, No Tenderness Extremities: No Edema Skin: Other (MASD of the perineal area) Neuro: Other (BL limbs strength 3+5 Sensation intact Strength Both Upper limbs 4/5 Cognition intact) Psych/Mental Status: Mental Status NL Assessment/Plan Assessment and Plan 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
--- NOTE | 2018-09-03 11:20 | Physical Therapy Daily Note ---
PT Daily Note-Current Subjective Patient in bed pre tx, agrees to PT, no complaints of pain at rest. Appearance Patient BTB post tx with nurse call, phone, tray, all needs met. Mental Status Patient Orientation: Normal For Age Attachments: Yeboah Catheter Transfers Functional [place] Measure 0=Not Assessed/NA 4=Minimal Assistance 1=Total Assistance 5=Supervision or Setup 2=Maximal Assistance 6=Modified [place] 3=Moderate Assistance 7=Complete IndependenceIRFPAI Quality Coding Scale 6 Independent with activity with or without an assistive device 5 Patient requires set up or clean up by helper. Patient completes activity by themselves 4 Supervision or touching assist (CGA). [place] provide cues , steadying assist 3 The helper provides less than half the effort to complete the activity 2 The helper provides more than half the effort to complete the activity 1 Dependent. The helper does all the effort to complete an activity 7 Patient refused to complete or attempt activity 9 The patient did not perform the activity before the current illness or injury 88 Not attempted due to Medical conditions or safety concerns Transfers (B, C, W/C) (FIM): 5 Scootin Rollin Supine to/from Sit: 6 Sit to/from Stand: 5 Bed to/from Chair: 5 Weight Bearing Right Lower Extremity: Right Full Weight Bearing Left Lower Extremity: Left Full Weight Bearing Gait Training Gait (FIM): 2 Distance: 80'x4 Gait Level of Assist: 5 Gait Persons Needed: 1 Gait Assistive Device: FWW Patient is very SOB and fatigued after going 80', needs significant rest breaks to recover. Stair Training Stair Training: Handrails/: 2 handrails Stairs (FIM): 2 #of Steps: 4 Stairs: Pattern: Reciprocal Level of Assist: 5 Patient needs rest break at the top of stairs due to SOB Treatments ambulation, bed mobility and transfers, stair training Assessment Current Status: Fair Progress improving endurance but patient needs rest breaks to recover after every activity. PT Short Term Goals Short Term Goals Time Frame: Sep 02, 2018 Transfers (B,C,W/C) (FIM): 4 (et) Gait (FIM): 4 (met) Distance (FIM): 3=150 ft Gait Assistive Device: FWW Wheelchair Distance: 150'x2 PT Nonprofit Fundraiser Goals Nonprofit Fundraiser Goals PT Nursing Home Goals Time Frame: Sep 11, 2018 Transfers (B,C,W/C) (FIM): 7 Sit to Lying (QC): 6 Lying-Sitting on Side/Bed(QC): 6 Sit to Stand (QC): 6 Rollin Roll Left to Right (QC): 6 Chair/Aka-fo-Bbrcm Xfer(QC): 6 Car Transfer (QC): 6 Does the Patient Walk: Yes Gait (FIM): 6 Gait distance (FIM): 3=150 ft Walk 10 feet (QC): 6 Walk 10ft-Uneven Surface(QC): 6 Walk 50ft with 2 Turns (QC): 6 Walk 150 ft (QC): 6 Gait Assistive Device: FWW Does the Pt use WC or Scooter?: No Stairs (FIM): 5 # of Steps: 4 1 Step (curb) (QC): 6 4 Steps (QC): 6 12 Steps (QC): 88 Picking up an Object (QC): 4 PT Plan Problem List Problem List: Activity Tolerance, Functional Strength, Safety, Balance, Gait, Transfer Treatment/Plan Treatment Plan: Continue Plan of Care Treatment Plan: Bed Mobility, Education, Functional Activity Ana, Functional Strength, Group Therapy, Gait, Safety, Therapeutic Exercise, Transfers Treatment Duration: Sep 11, 2018 Frequency: At least 5 of 7 days/Wk (IRF) Estimated Hrs Per Day: 1.5 hours per day Patient and/or Family Agrees t: Yes Safety Risks/Education Patient Education: Gait Training, Transfer Techniques, Steps, Correct Positioning, Safety Issues Teaching Recipient: Patient Teaching Methods: Demonstration, Discussion Response to Teaching: Reinforcement Needed Time/GCodes Time In: 1025 Time Out: 1125 Total Billed Treatment Time: 60 Total Billed Treatment 1 visit FA 15' GT 45' BEKAH MALONE PT Sep 03, 2018 11:20
--- NOTE | 2018-09-03 14:25 | Therapy Group Daily Note ---
Therapy Daily Group Note Patient Education Topic Other List Below (memory strategies, senses and aging) Other/Notes Pt. participated in PT OT group this date. Pt. very social, introducing himself and sharing "what I would be famous for" . Pts. were educated on the affects of aging on the 5 senses , as well as memory and aging and strategies for managing memory loss. Pts. all participated in memory game by matching images etc. Pt. to from room by w/c with assist. In room after with alejandra at hand Start Time: 13:00 Stop Time: 14:10 Total Billed Treatment Time: 70 Total Billed Treatment 1,GRP ANH HEWITT TELEGRAPH OFFICE TELEPHONE CLERK Sep 03, 2018 14:25
[2018-09-03] MEDS: CALCIUM CARBONATE 500 MG (TUMS) TAB.CHEW PO PRN (16:06)
[2018-09-03 18:04] VITALS: BP 157/88
[2018-09-04] MEDS: KCL 20 MEQ TAB (K-DUR) PO SCH ×2 (06:02→06:22)
[2018-09-04 06:06] VITALS: BP 145/77
[2018-09-04] MEDS: RT-ALBUTEROL/IPRATROPIUM 3 ML (DUONEB) VIAL INH SCH ×2 (07:31→19:23)
[2018-09-04 07:33] VITALS: BP 157/88
[2018-09-04] MEDS: ZINC OXIDE 16% OINT (BUTT PASTE) 113 GM TUBE TOP SCH ×3 (08:56→21:25)
--- NOTE | 2018-09-04 09:25 | Physical Therapy Daily Note ---
PT Daily Note-Current Subjective Pt. waiting in gym at one point in w/c and this GRAVE CLEANER with another pt. at that time. This perturbed pt. He was ready to work right then. This pt. was seen next. Impulsive, states he wants to leave soon , declined stairs saying he failed at them a few days earlier. Pain Numeric Pain Scale: 0-No Pain Mental Status Patient Orientation: Person, Place, Time, Situation Attachments: Yeboah Catheter Transfers Functional [place] Measure 0=Not Assessed/NA 4=Minimal Assistance 1=Total Assistance 5=Supervision or Setup 2=Maximal Assistance 6=Modified [place] 3=Moderate Assistance 7=Complete IndependenceIRFPAI Quality Coding Scale 6 Independent with activity with or without an assistive device 5 Patient requires set up or clean up by helper. Patient completes activity by themselves 4 Supervision or touching assist (CGA). [place] provide cues , steadying assist 3 The helper provides less than half the effort to complete the activity 2 The helper provides more than half the effort to complete the activity 1 Dependent. The helper does all the effort to complete an activity 7 Patient refused to complete or attempt activity 9 The patient did not perform the activity before the current illness or injury 88 Not attempted due to Medical conditions or safety concerns Transfers (B, C, W/C) (FIM): 5 Scootin Rollin Supine to/from Sit: 5 Sit to/from Stand: 5 Bed to/from Chair: 5 Weight Bearing Right Lower Extremity: Right Full Weight Bearing Left Lower Extremity: Left Full Weight Bearing Gait Training Does the Patient Walk?: Yes Gait (FIM): 5 Distance (FIM): 3=150 ft (x2) Gait Level of Assist: 5 Gait Persons Needed: 1 Gait Assistive Device: FWW pt. ambulating quickly and haphazardly at times, instructed to slow down and regard some safety issues. pt response a bit angry Exercises Supine Ex: Bridging, Ankle pumps, Quad Set, Rolling, Glut sets, Heel Slides, Short Arc Quads, Scooting, Straight leg raise, Hip abd/add Supine Reps: 20 Assessment Current Status: Good Progress PT Short Term Goals Short Term Goals Time Frame: Sep 02, 2018 Transfers (B,C,W/C) (FIM): 4 (et) Gait (FIM): 4 (met) Distance (FIM): 3=150 ft Gait Assistive Device: FWW Wheelchair Distance: 150'x2 PT Fretted Instruments Inspector Goals Fretted Instruments Inspector Goals PT Residential Goals Time Frame: Sep 11, 2018 Transfers (B,C,W/C) (FIM): 7 Sit to Lying (QC): 6 Lying-Sitting on Side/Bed(QC): 6 Sit to Stand (QC): 6 Rollin Roll Left to Right (QC): 6 Chair/Opw-yd-Sdvws Xfer(QC): 6 Car Transfer (QC): 6 Does the Patient Walk: Yes Gait (FIM): 6 Gait distance (FIM): 3=150 ft Walk 10 feet (QC): 6 Walk 10ft-Uneven Surface(QC): 6 Walk 50ft with 2 Turns (QC): 6 Walk 150 ft (QC): 6 Gait Assistive Device: FWW Does the Pt use WC or Scooter?: No Stairs (FIM): 5 # of Steps: 4 1 Step (curb) (QC): 6 4 Steps (QC): 6 12 Steps (QC): 88 Picking up an Object (QC): 4 PT Plan Treatment/Plan Treatment Plan: Continue Plan of Care Treatment Plan: Bed Mobility, Education, Functional Activity Ana, Functional Strength, Group Therapy, Gait, Safety, Therapeutic Exercise, Transfers Treatment Duration: Sep 11, 2018 Frequency: At least 5 of 7 days/Wk (IRF) Estimated Hrs Per Day: 1.5 hours per day Patient and/or Family Agrees t: Yes Safety Risks/Education Patient Education: Gait Training, Transfer Techniques, Correct Positioning, Safety Issues Teaching Recipient: Patient Teaching Methods: Demonstration, Discussion Response to Teaching: Verbalize Understanding, Return Demonstration, Reinforcement Needed Time/GCodes Time In: 855 Time Out: 920 Total Billed Treatment Time: 25 Total Billed Treatment 1,GT10m,EX15m G Codes Necessary: No ANH HEWITT GRAVE CLEANER Sep 04, 2018 09:25
[2018-09-04] MEDS ORDERED: RT-ALBUTEROL/IPRATROPIUM 3 ML (DUONEB) VIAL INH PRN (10:00)
[2018-09-04 16:00] VITALS: BP 154/84
[2018-09-05 06:45] VITALS: BP 117/77
[2018-09-05] MEDS: KCL 20 MEQ TAB (K-DUR) PO SCH (07:22)
[2018-09-05] MEDS: RT-ALBUTEROL/IPRATROPIUM 3 ML (DUONEB) VIAL INH SCH ×2 (08:46→19:14)
[2018-09-05] MEDS: ZINC OXIDE 16% OINT (BUTT PASTE) 113 GM TUBE TOP SCH ×3 (08:53→20:42)
[2018-09-05 17:18] VITALS: BP 114/82
--- NOTE | 2018-09-05 21:36 | PM & R (SOAP) Progress Note ---
Subjective This was a face to face visit with the patient. Date Seen by Provider: Sep 05, 2018 Time Seen by Provider: 21:30 Subjective/Events-last exam Patient was seen in his room this eveing Patient SBA for transfers Objective Physician Exam Last Set of Vital Signs Vital Signs Date Time Temp Pulse Resp B/P (MAP) Pulse Ox O2 Delivery O2 Flow Rate FiO2 09/05/18 19:14 Room Air 09/05/18 17:18 99.8 79 18 114/82 (93) 98 09/01/18 11:26 21 Capillary Refill : I&O Intake and Output 09/05/18 00:00 Intake Total 1262 ml Output Total 2525 ml Balance -1263 ml Intake Oral 1262 ml Output Urine Total 2525 ml General: Alert, Oriented X3, Cooperative, No Acute Distress HEENT: Atraumatic, PERRLA, EOMI, Mucous Memb Moist/[place] Neck: Supple, No JVD Lungs: Clear to Auscultation Heart: Regular Rate Abdomen: Normal Bowel Sounds, Soft, No Tenderness Extremities: No Edema Skin: Other (MASD of the perineal area) Neuro: Other (BL limbs strength 3+5 Sensation intact Strength Both Upper limbs 4/5 Cognition intact) Psych/Mental Status: Mental Status NL Assessment/Plan Assessment and Plan 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
[2018-09-06 05:04] VITALS: BP 137/86
[2018-09-06] MEDS: KCL 20 MEQ TAB (K-DUR) PO SCH (06:21)
[2018-09-06] MEDS: RT-ALBUTEROL/IPRATROPIUM 3 ML (DUONEB) VIAL INH SCH ×2 (06:55→20:06)
--- NOTE | 2018-09-06 08:12 | PM & R (SOAP) Progress Note ---
Subjective This was a face to face visit with the patient. Date Seen by Provider: Sep 06, 2018 Time Seen by Provider: 07:50 Subjective/Events-last exam Patient was seen in his room this AM Patient SBA for transfers.RN reports patient with some Dyspepsia with K pill.Will recheck labs Review of Systems Gastrointestinal: Other (dyspepsia) Objective Physician Exam Last Set of Vital Signs Vital Signs Date Time Temp Pulse Resp B/P (MAP) Pulse Ox O2 Delivery O2 Flow Rate FiO2 09/06/18 05:04 99.0 80 18 137/86 (103) 98 Room Air 09/01/18 11:26 21 Capillary Refill : I&O Intake and Output 09/06/18 00:00 Intake Total 1744 ml Output Total 2150 ml Balance -406 ml Intake Oral 1744 ml Output Urine Total 2150 ml General: Alert, Oriented X3, Cooperative, No Acute Distress HEENT: Atraumatic, PERRLA, EOMI, Mucous Memb Moist/[place] Neck: Supple, No JVD Lungs: Clear to Auscultation Heart: Regular Rate Abdomen: Normal Bowel Sounds, Soft, No Tenderness Extremities: No Edema Skin: Other (MASD of the perineal area) Neuro: Other (BL limbs strength 3+5 Sensation intact Strength Both Upper limbs 4/5 Cognition intact) Psych/Mental Status: Mental Status NL Assessment/Plan Assessment and Plan 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
[2018-09-06] MEDS: ZINC OXIDE 16% OINT (BUTT PASTE) 113 GM TUBE TOP SCH ×3 (08:35→19:36)
[2018-09-06] MEDS: IBUPROFEN TABLET 200 MG TAB PO PRN (09:02)
--- NOTE | 2018-09-06 10:22 | Physical Therapy Daily Note ---
PT Daily Note-Current Subjective Patient in bed pre tx, agrees to PT, no complaints of pain but he states he has a little trouble breathing. Appearance Patient BTB post tx with nurse call, phone, tray, all needs met. Mental Status Patient Orientation: Normal For Age Transfers Functional [place] Measure 0=Not Assessed/NA 4=Minimal Assistance 1=Total Assistance 5=Supervision or Setup 2=Maximal Assistance 6=Modified [place] 3=Moderate Assistance 7=Complete IndependenceIRFPAI Quality Coding Scale 6 Independent with activity with or without an assistive device 5 Patient requires set up or clean up by helper. Patient completes activity by themselves 4 Supervision or touching assist (CGA). [place] provide cues , steadying assist 3 The helper provides less than half the effort to complete the activity 2 The helper provides more than half the effort to complete the activity 1 Dependent. The helper does all the effort to complete an activity 7 Patient refused to complete or attempt activity 9 The patient did not perform the activity before the current illness or injury 88 Not attempted due to Medical conditions or safety concerns Transfers (B, C, W/C) (FIM): 6 Scootin Rollin Supine to/from Sit: 6 Sit to/from Stand: 6 Weight Bearing Right Lower Extremity: Right Full Weight Bearing Left Lower Extremity: Left Full Weight Bearing Gait Training Gait (FIM): 5 Distance: 150'x2 Gait Level of Assist: 5 Gait Persons Needed: 1 Gait Assistive Device: FWW Patient ambulates briskly, occasional unsteadiness but he was more steady today that he has been in the past. Patient gets SOB and needs a significant recovery time afterwards. Exercises Supine Ex: Bridging, Ankle pumps, Quad Set, Glut sets, Heel Slides, Short Arc Quads, Straight leg raise, Hip abd/add Supine Reps: 20 LAQ alternating for 5 min NuStep Minutes: 15 NuStep Workload: 4 Treatments bed mobility and transfers, ambulation, functional strengthening Assessment Current Status: Fair Progress improving ambulation, steadiness, endurance. However, patient gets SOB easily and needs time for recovery between activities. PT Short Term Goals Short Term Goals Time Frame: Sep 02, 2018 Transfers (B,C,W/C) (FIM): 4 (et) Gait (FIM): 4 (met) Distance (FIM): 3=150 ft Gait Assistive Device: FWW Wheelchair Distance: 150'x2 PT Telemarketing Supervisor Goals Residential Goals PT Telemarketing Supervisor Goals Time Frame: Sep 11, 2018 Transfers (B,C,W/C) (FIM): 7 Sit to Lying (QC): 6 Lying-Sitting on Side/Bed(QC): 6 Sit to Stand (QC): 6 Rollin Roll Left to Right (QC): 6 Chair/Jrp-rz-Aomuu Xfer(QC): 6 Car Transfer (QC): 6 Does the Patient Walk: Yes Gait (FIM): 6 Gait distance (FIM): 3=150 ft Walk 10 feet (QC): 6 Walk 10ft-Uneven Surface(QC): 6 Walk 50ft with 2 Turns (QC): 6 Walk 150 ft (QC): 6 Gait Assistive Device: FWW Does the Pt use WC or Scooter?: No Stairs (FIM): 5 # of Steps: 4 1 Step (curb) (QC): 6 4 Steps (QC): 6 12 Steps (QC): 88 Picking up an Object (QC): 4 PT Plan Problem List Problem List: Activity Tolerance, Functional Strength, Safety, Balance, Gait, Transfer Treatment/Plan Treatment Plan: Continue Plan of Care Treatment Plan: Bed Mobility, Education, Functional Activity Ana, Functional Strength, Group Therapy, Gait, Safety, Therapeutic Exercise, Transfers Treatment Duration: Sep 11, 2018 Frequency: At least 5 of 7 days/Wk (IRF) Estimated Hrs Per Day: 1.5 hours per day Patient and/or Family Agrees t: Yes Safety Risks/Education Patient Education: Gait Training, Transfer Techniques, Correct Positioning, Safety Issues Teaching Recipient: Patient Teaching Methods: Demonstration, Discussion Response to Teaching: Reinforcement Needed Time/GCodes Time In: 924 Time Out: 102 Total Billed Treatment Time: 60 Total Billed Treatment 1 visit GT 15' FA 15' EX 30' BEKAH MALONE PT Sep 06, 2018 10:22
--- NOTE | 2018-09-06 11:41 | Occupational Ther Daily Note ---
OT Current Status-Daily Note Subjective Pt seen in room, up in bed, reluctantly agreeable to OT. Mentions pain in shoulders while doing activities but not rated or described except that it's chronic. Appearance Alert, cooperative Mental Status/Objective Functional [place] Measure 0=Not Assessed/NA 4=Minimal Assistance 1=Total Assistance 5=Supervision or Setup 2=Maximal Assistance 6=Modified [place] 3=Moderate Assistance 7=Complete [place] ADL-Treatment Functional [place] Measure 0=Not Assessed/NA 4=Minimal Assistance 1=Total Assistance 5=Supervision or Setup 2=Maximal Assistance 6=Modified [place] 3=Moderate Assistance 7=Complete IndependenceIRFPAI Quality Coding Scale 6 Independent with activity with or without an assistive device 5 Patient requires set up or clean up by helper. Patient completes activity by themselves 4 Supervision or touching assist (CGA). [place] provide cues , steadying assist 3 The helper provides less than half the effort to complete the activity 2 The helper provides more than half the effort to complete the activity 1 Dependent. The helper does all the effort to complete an activity 7 Patient refused to complete or attempt activity 9 The patient did not perform the activity before the current illness or injury 88 Not attempted due to Medical conditions or safety concerns Other Treatment Pt declined any ADLs, saying that he showered yesterday, Got up to EOB without help and stood to walk without assistance Refused gait belt for safety. Walked quickly and somewhat impulsively to gym with FWW and no LOB. Pt did 15 minutes bilat UE exercise on arm bike set at 15W resistance, taking breaks only to get a sip of coffee. He reported that his shoulders hurt but they hurt all the time and did not stop activity. Also did graded clothespins with 1# weight on each arm and UE ex with exercise bar, 10 repetitions. All to strengthen arms for safe ambulation and to increase activity tolerance. He got up from chair and walked quickly back to his room, without loosing his balance. He got into bed a little unsafely and was left up in bed, all needs met. Education OT Patient Education: Exercise program, Progress toward Goal/Update tx plan, Purpose of tx/functional activities, Safety issues Teaching Recipient: Patient Teaching Methods: Demonstration, Discussion Response to Teaching: Verbalize Understanding, Return Demonstration, Reinforcement Needed OT Short Term Goals Short Term Goals Time Frame: Sep 09, 2018 Eating(FIM): 5 Grooming(FIM): 5 Bathing(FIM): 4 Upper Body Dressing(FIM): 4 Lower Body Dressing(FIM): 3 Toileting(FIM): 4 Transfers (B,C,W/C) (FIM): 4 (et) Toilet/Commode Transfer(FIM): 4 Shower Transfer(FIM): 3 Additional Short Term Goals: 1-Demonstrate ADL Tasks, 2-Verbalize Understanding , 3-ImproveStrength/Ana 1=Demonstrate adherence to instructed precautions during ADL tasks. 2=Patient will verbalize/demonstrate understanding of assistive devices/ modifications for ADL. 3=Patient will improve strength/tolerance for activity to enable patient to perform ADL's. OT Shelter Goals Vocal Teacher Goals Time Frame: Sep 23, 2018 Eating (FIM): 6 Eating (QC): 6 Groomin Oral Hygiene (QC): 6 Bathing(FIM): 5 Shower/Bathe Self (QC): 4 Upper Body Dressing(FIM): 5 Upper Body Dressing (QC): 5 Lower Body Dressing(FIM): 4 Lower Body Dressing (QC): 4 On/Off Footwear (QC): 4 Toileting(FIM): 5 Toileting Hygiene (QC): 5 Transfers (B,C,W/C) (FIM): 6 Toilet/Commode Transfer(FIM): 6 Toilet/Commode Transfer (QC): 6 Shower Transfer(FIM): 5 Additional Goals: 1-Demonstrate ADL Tasks, 2-Verbalize Understanding, 3- ImproveStrength/Ana 1=Demonstrate adherence to instructed precautions during ADL tasks. 2=Patient will verbalize/demonstrate understanding of assistive devices/ modifications for ADL. 3=Patient will improve strength/tolerance for activity to enable patient to perform ADL's. OT Education/Plan Discharge Recommendations Plan/Recommendations: Continue POC Treatment Plan/Plan of Care Patient would benefit from OT for education, treatment and training to promote independence in ADL's, mobility, safety and/or upper extremity function for ADL' s. Plan of Care: ADL Retraining, Functional Mobility, Group Exercise/Act as Ind, UE Funct Exercise/Act Treatment Duration: Sep 23, 2018 Frequency: At least 5 of 7 days/Wk (IRF) Estimated Hrs Per Day: 1.5 hours per day Agreement: Yes Rehab Potential: Fair Time/GCodes Start Time: 10:30 Stop Time: 11:30 Total Time Billed (hr/min): 60 Billed Treatment Time visit, 60 minutes exercise MOHAN BRICEÑO OT Sep 06, 2018 11:41
--- NOTE | 2018-09-06 13:57 | Occupational Ther Daily Note ---
OT Current Status-Daily Note Subjective Pt seen in room, up in bed, agreeable to OT. Feeling much better because he was concerned about his dog and found out he was OK. Appearance Alert, cooperative. Wants to go home this week. Mental Status/Objective Functional [place] Measure 0=Not Assessed/NA 4=Minimal Assistance 1=Total Assistance 5=Supervision or Setup 2=Maximal Assistance 6=Modified [place] 3=Moderate Assistance 7=Complete [place] ADL-Treatment Functional [place] Measure 0=Not Assessed/NA 4=Minimal Assistance 1=Total Assistance 5=Supervision or Setup 2=Maximal Assistance 6=Modified [place] 3=Moderate Assistance 7=Complete IndependenceIRFPAI Quality Coding Scale 6 Independent with activity with or without an assistive device 5 Patient requires set up or clean up by helper. Patient completes activity by themselves 4 Supervision or touching assist (CGA). [place] provide cues , steadying assist 3 The helper provides less than half the effort to complete the activity 2 The helper provides more than half the effort to complete the activity 1 Dependent. The helper does all the effort to complete an activity 7 Patient refused to complete or attempt activity 9 The patient did not perform the activity before the current illness or injury 88 Not attempted due to Medical conditions or safety concerns Other Treatment He sat at edge of bed to do UE exercises, working with red theraband (increased strength) as well as yellow theraband (increased AROM). He recalled several exercises and learned a couple more. Also did ex with .5# weight and discusses items that he could use at home for different weights. He did 10 reps bilat ex with the weights, working on shoulders, elbows, forearms, and wrists. All to strengthen arms for safety during ADLs. Pt left up at EOB, all needs met. Education OT Patient Education: Exercise program, Home exercise program, Purpose of tx/ functional activities Teaching Recipient: Patient Teaching Methods: Demonstration, Discussion Response to Teaching: Verbalize Understanding, Return Demonstration, Reinforcement Needed OT Short Term Goals Short Term Goals Time Frame: Sep 09, 2018 Eating(FIM): 5 Grooming(FIM): 5 Bathing(FIM): 4 Upper Body Dressing(FIM): 4 Lower Body Dressing(FIM): 3 Toileting(FIM): 4 Transfers (B,C,W/C) (FIM): 4 (et) Toilet/Commode Transfer(FIM): 4 Shower Transfer(FIM): 3 Additional Short Term Goals: 1-Demonstrate ADL Tasks, 2-Verbalize Understanding , 3-ImproveStrength/Ana 1=Demonstrate adherence to instructed precautions during ADL tasks. 2=Patient will verbalize/demonstrate understanding of assistive devices/ modifications for ADL. 3=Patient will improve strength/tolerance for activity to enable patient to perform ADL's. OT Correction Goals Fish Roe Technician Goals Time Frame: Sep 23, 2018 Eating (FIM): 6 Eating (QC): 6 Groomin Oral Hygiene (QC): 6 Bathing(FIM): 5 Shower/Bathe Self (QC): 4 Upper Body Dressing(FIM): 5 Upper Body Dressing (QC): 5 Lower Body Dressing(FIM): 4 Lower Body Dressing (QC): 4 On/Off Footwear (QC): 4 Toileting(FIM): 5 Toileting Hygiene (QC): 5 Transfers (B,C,W/C) (FIM): 6 Toilet/Commode Transfer(FIM): 6 Toilet/Commode Transfer (QC): 6 Shower Transfer(FIM): 5 Additional Goals: 1-Demonstrate ADL Tasks, 2-Verbalize Understanding, 3- ImproveStrength/Ana 1=Demonstrate adherence to instructed precautions during ADL tasks. 2=Patient will verbalize/demonstrate understanding of assistive devices/ modifications for ADL. 3=Patient will improve strength/tolerance for activity to enable patient to perform ADL's. OT Education/Plan Discharge Recommendations Plan/Recommendations: Continue POC Treatment Plan/Plan of Care Patient would benefit from OT for education, treatment and training to promote independence in ADL's, mobility, safety and/or upper extremity function for ADL' s. Plan of Care: ADL Retraining, Functional Mobility, Group Exercise/Act as Ind, UE Funct Exercise/Act Treatment Duration: Sep 23, 2018 Frequency: At least 5 of 7 days/Wk (IRF) Estimated Hrs Per Day: 1.5 hours per day Agreement: Yes Rehab Potential: Fair Time/GCodes Start Time: 12:50 Stop Time: 13:20 Total Time Billed (hr/min): 30 Billed Treatment Time visit, 30 minutes exercise MOHAN BRICEÑO OT Sep 06, 2018 13:57
--- NOTE | 2018-09-06 14:59 | Physical Therapy Daily Note ---
PT Daily Note-Current Subjective Agrees to PT. "I'm about ready to go home." Mental Status Patient Orientation: Person, Place, Time, Situation However, decreased safety awareness Transfers Functional [place] Measure 0=Not Assessed/NA 4=Minimal Assistance 1=Total Assistance 5=Supervision or Setup 2=Maximal Assistance 6=Modified [place] 3=Moderate Assistance 7=Complete IndependenceIRFPAI Quality Coding Scale 6 Independent with activity with or without an assistive device 5 Patient requires set up or clean up by helper. Patient completes activity by themselves 4 Supervision or touching assist (CGA). [place] provide cues , steadying assist 3 The helper provides less than half the effort to complete the activity 2 The helper provides more than half the effort to complete the activity 1 Dependent. The helper does all the effort to complete an activity 7 Patient refused to complete or attempt activity 9 The patient did not perform the activity before the current illness or injury 88 Not attempted due to Medical conditions or safety concerns Transfers (B, C, W/C) (FIM): 6 Supine to/from Sit: 6 Pt able to perform all bed mobility and transfer without assist. Weight Bearing Right Lower Extremity: Right Full Weight Bearing Left Lower Extremity: Left Full Weight Bearing Gait Training Does the Patient Walk?: Yes Gait (FIM): 5 Distance (FIM): 3=150 ft Distance: 150 ft x 4 Gait Assistive Device: FWW Gait is safe, he tends to get outside his walker with turning but no noted LOB; he walks fast too. Stair Training Up/down 4 steps x 2 with handrail held with both hands on the same side; reciprocal gait up and down, completed with SBA. Assessment Good functional progress. Strength improveing. Gait and transfers improved and he did well on the stairs. No noted LOB. Only concern at t this time is decreased safety awareness. PT Short Term Goals Short Term Goals Time Frame: Sep 02, 2018 Transfers (B,C,W/C) (FIM): 4 (et) Gait (FIM): 4 (met) Distance (FIM): 3=150 ft Gait Assistive Device: FWW Wheelchair Distance: 150'x2 PT Metal Buffer Goals Metal Buffer Goals PT Metal Buffer Goals Time Frame: Sep 11, 2018 Transfers (B,C,W/C) (FIM): 7 Sit to Lying (QC): 6 Lying-Sitting on Side/Bed(QC): 6 Sit to Stand (QC): 6 Rollin Roll Left to Right (QC): 6 Chair/Rxj-hq-Xmhvw Xfer(QC): 6 Car Transfer (QC): 6 Does the Patient Walk: Yes Gait (FIM): 6 Gait distance (FIM): 3=150 ft Walk 10 feet (QC): 6 Walk 10ft-Uneven Surface(QC): 6 Walk 50ft with 2 Turns (QC): 6 Walk 150 ft (QC): 6 Gait Assistive Device: FWW Does the Pt use WC or Scooter?: No Stairs (FIM): 5 # of Steps: 4 1 Step (curb) (QC): 6 4 Steps (QC): 6 12 Steps (QC): 88 Picking up an Object (QC): 4 PT Plan Problem List Problem List: Activity Tolerance, Functional Strength, Safety, Balance, Gait, Transfer Treatment/Plan Treatment Plan: Continue Plan of Care Treatment Plan: Bed Mobility, Education, Functional Activity Ana, Functional Strength, Group Therapy, Gait, Safety, Therapeutic Exercise, Transfers Treatment Duration: Sep 11, 2018 Frequency: At least 5 of 7 days/Wk (IRF) Estimated Hrs Per Day: 1.5 hours per day Patient and/or Family Agrees t: Yes Safety Risks/Education Patient Education: Safety Issues Teaching Recipient: Patient Teaching Methods: Discussion Response to Teaching: Reinforcement Needed Time/GCodes Time In: 1330 Time Out: 1400 Total Billed Treatment Time: 30 Total Billed Treatment visit FA 30 KEITH PAREKH PT Sep 06, 2018 14:59
[2018-09-06 16:18] VITALS: BP 151/74
[2018-09-07 04:01] VITALS: BP 118/72
[2018-09-07 05:25] LABS: BASOPHILS # (AUTO) 0.1 10^3/uL (0.0-0.1); BASOPHILS % (AUTO) 1 % (0-10); EOSINOPHILS # (AUTO) 0.2 10^3/uL (0.0-0.3); EOSINOPHILS % (AUTO) 3 % (0-10); HEMATOCRIT 38 % (40-54); HEMOGLOBIN 12.4 G/DL (13.3-17.7); LYMPHOCYTES # (AUTO) 1.2 X 10^3 (1.0-4.0); LYMPHOCYTES % (AUTO) 16 % (12-44); MEAN CORPUSCULAR HEMOGLOBIN 33 PG (25-34); MEAN CORPUSCULAR HGB CONC 33 G/DL (32-36); MEAN CORPUSCULAR VOLUME 101 FL (80-99); MONOCYTES # (AUTO) 0.5 X 10^3 (0.0-1.0); MONOCYTES % (AUTO) 7 % (0-12); NEUTROPHILS # (AUTO) 5.3 X 10^3 (1.8-7.8); NEUTROPHILS % (AUTO) 73 % (42-75); PLATELET COUNT 377 10^3/uL (130-400); RED BLOOD COUNT 3.72 10^6/uL (4.35-5.85); RED CELL DISTRIBUTION WIDTH 13.4 % (10.0-14.5); WHITE BLOOD COUNT 7.2 10^3/uL (4.3-11.0)
[2018-09-07 06:00] LABS: ALANINE AMINOTRANSFERASE 25 U/L (0-55); ALBUMIN 3.5 GM/DL (3.2-4.5); ALKALINE PHOSPHATASE 79 U/L (40-136); BILIRUBIN,TOTAL 0.4 MG/DL (0.1-1.0); BUN/CREATININE RATIO 19; CALCIUM 9.6 MG/DL (8.5-10.1); CARBON DIOXIDE 20 MMOL/L (21-32); CHLORIDE 106 MMOL/L (98-107); CREATININE SERUM 1.05 MG/DL (0.60-1.30); GFR ESTIMATED > 60; GLUCOSE 111 MG/DL (70-105); POTASSIUM 4.3 MMOL/L (3.6-5.0); SODIUM 136 MMOL/L (135-145); TOTAL PROTEIN 7.5 GM/DL (6.4-8.2)
[2018-09-07] MEDS: KCL 10 MEQ TAB (MICRO K) PO SCH (06:08)
[2018-09-07] MEDS: ZINC OXIDE 16% OINT (BUTT PASTE) 113 GM TUBE TOP SCH ×3 (08:23→20:27)
[2018-09-07] MEDS: IBUPROFEN TABLET 200 MG TAB PO PRN (09:28)
--- NOTE | 2018-09-07 09:54 | Physical Therapy Daily Note ---
PT Daily Note-Current Subjective Patient in bed pre tx, agrees to PT, no complaints of pain at rest. Appearance Patient BTB post tx with nurse call, phone, tray, all needs met. Mental Status Patient Orientation: Normal For Age Transfers Functional [place] Measure 0=Not Assessed/NA 4=Minimal Assistance 1=Total Assistance 5=Supervision or Setup 2=Maximal Assistance 6=Modified [place] 3=Moderate Assistance 7=Complete IndependenceIRFPAI Quality Coding Scale 6 Independent with activity with or without an assistive device 5 Patient requires set up or clean up by helper. Patient completes activity by themselves 4 Supervision or touching assist (CGA). [place] provide cues , steadying assist 3 The helper provides less than half the effort to complete the activity 2 The helper provides more than half the effort to complete the activity 1 Dependent. The helper does all the effort to complete an activity 7 Patient refused to complete or attempt activity 9 The patient did not perform the activity before the current illness or injury 88 Not attempted due to Medical conditions or safety concerns Transfers (B, C, W/C) (FIM): 6 Scootin Rollin Supine to/from Sit: 6 Sit to/from Stand: 6 Bed to/from Chair: 6 Patient occasionally has dizziness with supine to sit and he is aware he has to sit and let his head clear before standing. Weight Bearing Right Lower Extremity: Right Full Weight Bearing Left Lower Extremity: Left Full Weight Bearing Gait Training Gait (FIM): 5 Distance: 150'x2 Gait Level of Assist: 5 Gait Persons Needed: 1 Gait Assistive Device: FWW steady ambulation, no LOB, brisk Exercises Supine Ex: Ankle pumps, Quad Set, Glut sets, Heel Slides Supine Reps: 20 LAQ alternating with 2# ankle weights for 5 min NuStep Minutes: 15 NuStep Workload: 5 Treatments bed mobility and transfers, ambulation, functional strengthening Assessment Current Status: Fair Progress improving endurance. Patient developed some pain in neck and upper traps, nurse gave him pain meds. PT Short Term Goals Short Term Goals Time Frame: Sep 02, 2018 Transfers (B,C,W/C) (FIM): 4 (et) Gait (FIM): 4 (met) Distance (FIM): 3=150 ft Gait Assistive Device: FWW Wheelchair Distance: 150'x2 PT Advanced Quality Engineer Goals Senior Care Goals PT Senior Care Goals Time Frame: Sep 11, 2018 Transfers (B,C,W/C) (FIM): 7 Sit to Lying (QC): 6 Lying-Sitting on Side/Bed(QC): 6 Sit to Stand (QC): 6 Rollin Roll Left to Right (QC): 6 Chair/Gdn-fj-Cwgrl Xfer(QC): 6 Car Transfer (QC): 6 Does the Patient Walk: Yes Gait (FIM): 6 Gait distance (FIM): 3=150 ft Walk 10 feet (QC): 6 Walk 10ft-Uneven Surface(QC): 6 Walk 50ft with 2 Turns (QC): 6 Walk 150 ft (QC): 6 Gait Assistive Device: FWW Does the Pt use WC or Scooter?: No Stairs (FIM): 5 # of Steps: 4 1 Step (curb) (QC): 6 4 Steps (QC): 6 12 Steps (QC): 88 Picking up an Object (QC): 4 PT Plan Problem List Problem List: Activity Tolerance, Functional Strength, Safety, Balance, Gait, Transfer, ROM Treatment/Plan Treatment Plan: Continue Plan of Care Treatment Plan: Bed Mobility, Education, Functional Activity Ana, Functional Strength, Group Therapy, Gait, Safety, Therapeutic Exercise, Transfers Treatment Duration: Sep 11, 2018 Frequency: At least 5 of 7 days/Wk (IRF) Estimated Hrs Per Day: 1.5 hours per day Patient and/or Family Agrees t: Yes Safety Risks/Education Patient Education: Gait Training, Transfer Techniques, Correct Positioning, Safety Issues Teaching Recipient: Patient Teaching Methods: Demonstration, Discussion Response to Teaching: Reinforcement Needed Time/GCodes Time In: 0900 Time Out: 1000 Total Billed Treatment Time: 60 Total Billed Treatment 1 visit GT 15' FA 10' EX 35' BEKAH MALONE PT Sep 07, 2018 09:53
[2018-09-07] MEDS: RT-ALBUTEROL/IPRATROPIUM 3 ML (DUONEB) VIAL INH SCH ×2 (10:11→20:03)
--- NOTE | 2018-09-07 11:16 | Occupational Ther Daily Note ---
OT Current Status-Daily Note Subjective Pt. states that he is "sore" in arms at beginning of treatment, but then states that he is not at end. Appearance Pt. in bed. Agrees to work with OT. Mental Status/Objective Patient Orientation: Person, Place Functional [place] Measure 0=Not Assessed/NA 4=Minimal Assistance 1=Total Assistance 5=Supervision or Setup 2=Maximal Assistance 6=Modified [place] 3=Moderate Assistance 7=Complete [place] ADL-Treatment Functional [place] Measure 0=Not Assessed/NA 4=Minimal Assistance 1=Total Assistance 5=Supervision or Setup 2=Maximal Assistance 6=Modified [place] 3=Moderate Assistance 7=Complete IndependenceIRFPAI Quality Coding Scale 6 Independent with activity with or without an assistive device 5 Patient requires set up or clean up by helper. Patient completes activity by themselves 4 Supervision or touching assist (CGA). [place] provide cues , steadying assist 3 The helper provides less than half the effort to complete the activity 2 The helper provides more than half the effort to complete the activity 1 Dependent. The helper does all the effort to complete an activity 7 Patient refused to complete or attempt activity 9 The patient did not perform the activity before the current illness or injury 88 Not attempted due to Medical conditions or safety concerns Grooming (FIM): 5 (Pt. is set up to comb hair on side of bed.) Bathing (FIM): 5 (Pt. is able to wash all parts sitting on side of bed with SBA. However, did decline washing feet. OT did not wash them as well.) Shower/Bathe Self (QC): 4 Upper Body (FIM): 5 Upper Body Dressing (QC): 5 Lower Body Dressing (FIM): 5 (Pt. able to doff brief and shorts at bed level, and is able to don shorts while seated on side of bed. Able to thread feet sitting, and then lays to last puller hips. Declines doffing/donning socks stating that they are clean.) Lower Body Dressing (QC): 4 Transfers (B, C, W/C) (FIM): 5 (SBA for supine-sit. Sit-stand and stand- supine. Pt. did not want to get into chair but requested to stay on side of bed.) Other Treatment Pt. agrees to spongebathe in room on side of bed. After spongebathing, adamantly declines ambulating to therapy gym, stating that he has already been there. Pt. does agree to complete bilateral UE exercises in room for continued strengthening. OT brought in armbike and pt. completed 15 minutes at mod resistance while seated side of bed. Pt. able to transfer back sit-supine. All needs met. Education OT Patient Education: Correct positioning, Exercise program, Modified ADL techniques, Progress toward Goal/Update tx plan, Purpose of tx/functional activities, Reviewed precautions, Rehab process, Transfer techniques Teaching Recipient: Patient Teaching Methods: Demonstration, Discussion Response to Teaching: Verbalize Understanding, Return Demonstration OT Short Term Goals Short Term Goals Time Frame: Sep 09, 2018 Eating(FIM): 5 Grooming(FIM): 5 Bathing(FIM): 4 Upper Body Dressing(FIM): 4 Lower Body Dressing(FIM): 3 Toileting(FIM): 4 Transfers (B,C,W/C) (FIM): 4 (et) Toilet/Commode Transfer(FIM): 4 Shower Transfer(FIM): 3 Additional Short Term Goals: 1-Demonstrate ADL Tasks, 2-Verbalize Understanding , 3-ImproveStrength/Ana 1=Demonstrate adherence to instructed precautions during ADL tasks. 2=Patient will verbalize/demonstrate understanding of assistive devices/ modifications for ADL. 3=Patient will improve strength/tolerance for activity to enable patient to perform ADL's. OT Trigonometry Tutor Goals Trigonometry Tutor Goals Time Frame: Sep 23, 2018 Eating (FIM): 6 Eating (QC): 6 Groomin Oral Hygiene (QC): 6 Bathing(FIM): 5 Shower/Bathe Self (QC): 4 Upper Body Dressing(FIM): 5 Upper Body Dressing (QC): 5 Lower Body Dressing(FIM): 4 Lower Body Dressing (QC): 4 On/Off Footwear (QC): 4 Toileting(FIM): 5 Toileting Hygiene (QC): 5 Transfers (B,C,W/C) (FIM): 6 Toilet/Commode Transfer(FIM): 6 Toilet/Commode Transfer (QC): 6 Shower Transfer(FIM): 5 Additional Goals: 1-Demonstrate ADL Tasks, 2-Verbalize Understanding, 3- ImproveStrength/Ana 1=Demonstrate adherence to instructed precautions during ADL tasks. 2=Patient will verbalize/demonstrate understanding of assistive devices/ modifications for ADL. 3=Patient will improve strength/tolerance for activity to enable patient to perform ADL's. OT Education/Plan Problem List/Assessment Assessment: Decreased Activ Tolerance, Impaired I ADL's, Impaired Self-Care Skills Discharge Recommendations Plan/Recommendations: Continue POC Therapy D/C Recommendations: Assisted Living Treatment Plan/Plan of Care Treatment,Training & Education: Yes Patient would benefit from OT for education, treatment and training to promote independence in ADL's, mobility, safety and/or upper extremity function for ADL' s. Plan of Care: ADL Retraining, Functional Mobility, Group Exercise/Act as Ind, UE Funct Exercise/Act Treatment Duration: Sep 23, 2018 Frequency: At least 5 of 7 days/Wk (IRF) Estimated Hrs Per Day: 1.5 hours per day Agreement: Yes Rehab Potential: Fair Time/GCodes Start Time: 10:00 Stop Time: 11:00 Total Time Billed (hr/min): 60 Billed Treatment Time 1, ADL x 45minutes, Ex x 15minutes JOSE CARLOS OCHOA OT Sep 07, 2018 11:16
--- NOTE | 2018-09-07 14:04 | Physical Therapy Daily Note ---
PT Daily Note-Current Subjective Patient in bed pre tx, agrees to PT, has pain in left shoulder but agrees to ambulate to the therapy gym and wants to get on the NuStep. Appearance Patient in bed post tx with nurse call, phone, tray, all needs met. Mental Status Patient Orientation: Normal For Age Transfers Functional [place] Measure 0=Not Assessed/NA 4=Minimal Assistance 1=Total Assistance 5=Supervision or Setup 2=Maximal Assistance 6=Modified [place] 3=Moderate Assistance 7=Complete IndependenceIRFPAI Quality Coding Scale 6 Independent with activity with or without an assistive device 5 Patient requires set up or clean up by helper. Patient completes activity by themselves 4 Supervision or touching assist (CGA). [place] provide cues , steadying assist 3 The helper provides less than half the effort to complete the activity 2 The helper provides more than half the effort to complete the activity 1 Dependent. The helper does all the effort to complete an activity 7 Patient refused to complete or attempt activity 9 The patient did not perform the activity before the current illness or injury 88 Not attempted due to Medical conditions or safety concerns Transfers (B, C, W/C) (FIM): 6 Scootin Rollin Supine to/from Sit: 6 Sit to/from Stand: 6 Bed to/from Chair: 6 Weight Bearing Right Lower Extremity: Right Full Weight Bearing Left Lower Extremity: Left Full Weight Bearing Gait Training Gait (FIM): 5 Distance: 150'x2 Gait Level of Assist: 5 Gait Persons Needed: 1 Gait Assistive Device: FWW Brisk, steady ambulation. Exercises NuStep Minutes: 15 NuStep Workload: 5 Treatments bed mobility and transfers, ambulation, functional strengthening Assessment Current Status: Fair Progress slowly improving endurance and ambulation PT Short Term Goals Short Term Goals Time Frame: Sep 02, 2018 Transfers (B,C,W/C) (FIM): 4 (et) Gait (FIM): 4 (met) Distance (FIM): 3=150 ft Gait Assistive Device: FWW Wheelchair Distance: 150'x2 PT Residential Goals Gate Watch Goals PT Gate Watch Goals Time Frame: Sep 11, 2018 Transfers (B,C,W/C) (FIM): 7 Sit to Lying (QC): 6 Lying-Sitting on Side/Bed(QC): 6 Sit to Stand (QC): 6 Rollin Roll Left to Right (QC): 6 Chair/Zcq-ay-Pnubi Xfer(QC): 6 Car Transfer (QC): 6 Does the Patient Walk: Yes Gait (FIM): 6 Gait distance (FIM): 3=150 ft Walk 10 feet (QC): 6 Walk 10ft-Uneven Surface(QC): 6 Walk 50ft with 2 Turns (QC): 6 Walk 150 ft (QC): 6 Gait Assistive Device: FWW Does the Pt use WC or Scooter?: No Stairs (FIM): 5 # of Steps: 4 1 Step (curb) (QC): 6 4 Steps (QC): 6 12 Steps (QC): 88 Picking up an Object (QC): 4 PT Plan Problem List Problem List: Activity Tolerance, Functional Strength, Safety, Balance, Gait, Transfer Treatment/Plan Treatment Plan: Continue Plan of Care Treatment Plan: Bed Mobility, Education, Functional Activity Ana, Functional Strength, Group Therapy, Gait, Safety, Therapeutic Exercise, Transfers Treatment Duration: Sep 11, 2018 Frequency: At least 5 of 7 days/Wk (IRF) Estimated Hrs Per Day: 1.5 hours per day Patient and/or Family Agrees t: Yes Safety Risks/Education Patient Education: Gait Training, Transfer Techniques, Correct Positioning, Safety Issues Teaching Recipient: Patient Teaching Methods: Demonstration, Discussion Response to Teaching: Reinforcement Needed Time/GCodes Time In: 1330 Time Out: 1400 Total Billed Treatment Time: 30 Total Billed Treatment 1 visit EX 15' GT 15' BEKAH MALONE PT Sep 07, 2018 14:04
--- NOTE | 2018-09-07 16:01 | Occupational Ther Daily Note ---
OT Current Status-Daily Note Subjective No pain reported. Appearance Pt. in bed. Agrees to work with Ot. Mental Status/Objective Patient Orientation: Person, Place Functional [place] Measure 0=Not Assessed/NA 4=Minimal Assistance 1=Total Assistance 5=Supervision or Setup 2=Maximal Assistance 6=Modified [place] 3=Moderate Assistance 7=Complete [place] ADL-Treatment Functional [place] Measure 0=Not Assessed/NA 4=Minimal Assistance 1=Total Assistance 5=Supervision or Setup 2=Maximal Assistance 6=Modified [place] 3=Moderate Assistance 7=Complete IndependenceIRFPAI Quality Coding Scale 6 Independent with activity with or without an assistive device 5 Patient requires set up or clean up by helper. Patient completes activity by themselves 4 Supervision or touching assist (CGA). [place] provide cues , steadying assist 3 The helper provides less than half the effort to complete the activity 2 The helper provides more than half the effort to complete the activity 1 Dependent. The helper does all the effort to complete an activity 7 Patient refused to complete or attempt activity 9 The patient did not perform the activity before the current illness or injury 88 Not attempted due to Medical conditions or safety concerns Transfers (B, C, W/C) (FIM): 6 (Pt. transferred supine-sit with Mod I using bedrail, and Mod I sit-stand with walker. Ambulated to therapy gym with SBA with walker.) Other Treatment Pt. completed 4 bilateral UE exercises x 15 reps with 3 lb dumbbell in all planes to increase overall strength and independence. However, pt. reports that his left shoulder is unable to fully "stretch" and therefore he completes AROM exercises only with this UE instead of using weights at a certain point. Pt. does require several rest breaks and then agrees to ambulate back to room with walker. Requires SBA. All needs met in room. Education OT Patient Education: Correct positioning, Exercise program, Progress toward Goal/Update tx plan, Purpose of tx/functional activities, Reviewed precautions, Rehab process, Transfer techniques Teaching Recipient: Patient Teaching Methods: Demonstration, Discussion Response to Teaching: Verbalize Understanding, Return Demonstration OT Short Term Goals Short Term Goals Time Frame: Sep 09, 2018 Eating(FIM): 5 Grooming(FIM): 5 Bathing(FIM): 4 Upper Body Dressing(FIM): 4 Lower Body Dressing(FIM): 3 Toileting(FIM): 4 Transfers (B,C,W/C) (FIM): 4 (et) Toilet/Commode Transfer(FIM): 4 Shower Transfer(FIM): 3 Additional Short Term Goals: 1-Demonstrate ADL Tasks, 2-Verbalize Understanding , 3-ImproveStrength/Ana 1=Demonstrate adherence to instructed precautions during ADL tasks. 2=Patient will verbalize/demonstrate understanding of assistive devices/ modifications for ADL. 3=Patient will improve strength/tolerance for activity to enable patient to perform ADL's. OT Certified Vehicle Fire Investigator Goals Certified Vehicle Fire Investigator Goals Time Frame: Sep 23, 2018 Eating (FIM): 6 Eating (QC): 6 Groomin Oral Hygiene (QC): 6 Bathing(FIM): 5 Shower/Bathe Self (QC): 4 Upper Body Dressing(FIM): 5 Upper Body Dressing (QC): 5 Lower Body Dressing(FIM): 4 Lower Body Dressing (QC): 4 On/Off Footwear (QC): 4 Toileting(FIM): 5 Toileting Hygiene (QC): 5 Transfers (B,C,W/C) (FIM): 6 Toilet/Commode Transfer(FIM): 6 Toilet/Commode Transfer (QC): 6 Shower Transfer(FIM): 5 Additional Goals: 1-Demonstrate ADL Tasks, 2-Verbalize Understanding, 3- ImproveStrength/Ana 1=Demonstrate adherence to instructed precautions during ADL tasks. 2=Patient will verbalize/demonstrate understanding of assistive devices/ modifications for ADL. 3=Patient will improve strength/tolerance for activity to enable patient to perform ADL's. OT Education/Plan Problem List/Assessment Assessment: Decreased Activ Tolerance, Impaired I ADL's Discharge Recommendations Plan/Recommendations: Continue POC Therapy D/C Recommendations: Home w/ Family Support, Meals on Wheels, Scheduled Assistance Treatment Plan/Plan of Care Treatment,Training & Education: Yes Patient would benefit from OT for education, treatment and training to promote independence in ADL's, mobility, safety and/or upper extremity function for ADL' s. Plan of Care: ADL Retraining, Functional Mobility, Group Exercise/Act as Ind, UE Funct Exercise/Act Treatment Duration: Sep 23, 2018 Frequency: At least 5 of 7 days/Wk (IRF) Estimated Hrs Per Day: 1.5 hours per day Agreement: Yes Rehab Potential: Fair Time/GCodes Start Time: 13:00 Stop Time: 13:30 Total Time Billed (hr/min): 30 Billed Treatment Time 1, Ex x 2 JOSE CARLOS OCHOA OT Sep 07, 2018 16:01
[2018-09-07 17:55] VITALS: BP 115/80
--- NOTE | 2018-09-07 20:59 | PM & R (SOAP) Progress Note ---
Subjective This was a face to face visit with the patient. Date Seen by Provider: Sep 07, 2018 Time Seen by Provider: 20:45 Subjective/Events-last exam Patient was seen in his room this evening Patient Modified Independent for transfers and SBA for gait Objective Physician Exam Last Set of Vital Signs Vital Signs Date Time Temp Pulse Resp B/P (MAP) Pulse Ox O2 Delivery O2 Flow Rate FiO2 09/07/18 20:03 93 Room Air 09/07/18 17:55 98.3 76 18 115/80 (92) 09/01/18 11:26 21 Capillary Refill : I&O Intake and Output 09/07/18 00:00 Intake Total 1530 ml Output Total 2100 ml Balance -570 ml Intake Oral 1530 ml Output Urine Total 2100 ml General: Alert, Oriented X3, Cooperative, No Acute Distress HEENT: Atraumatic, PERRLA, EOMI, Mucous Memb Moist/[place] Neck: Supple, No JVD Lungs: Clear to Auscultation Heart: Regular Rate Abdomen: Normal Bowel Sounds, Soft, No Tenderness Extremities: No Edema Skin: Other (MASD of the perineal area) Neuro: Other (BL limbs strength 3+5 Sensation intact Strength Both Upper limbs 4/5 Cognition intact) Psych/Mental Status: Mental Status NL Results Lab Data Laboratory Tests 09/07/18 05:20: White Blood Count 7.2, Red Blood Count 3.72L, Hemoglobin 12.4L, Hematocrit 38L, Mean Corpuscular Volume 101H, Mean Corpuscular Hemoglobin 33, Mean Corpuscular Hemoglobin Concent 33, Red Cell Distribution Width 13.4, Platelet Count 377, Mean Platelet Volume 9.0, Neutrophils (%) (Auto) 73, Lymphocytes (%) (Auto) 16, Monocytes (%) (Auto) 7, Eosinophils (%) (Auto) 3, Basophils (%) (Auto) 1, Neutrophils # (Auto) 5.3, Lymphocytes # (Auto) 1.2, Monocytes # (Auto) 0.5, Eosinophils # (Auto) 0.2, Basophils # (Auto) 0.1, Sodium Level 136, Potassium Level 4.3, Chloride Level 106, Carbon Dioxide Level 20L, Anion Gap 10, Blood Urea Nitrogen 20H, Creatinine 1.05, Estimat Glomerular Filtration Rate > 60, BUN /Creatinine Ratio 19, Glucose Level 111H, Calcium Level 9.6, Corrected Calcium 10.0, Total Bilirubin 0.4, Aspartate Amino Transf (AST/SGOT) 22, Alanine Aminotransferase (ALT/SGPT) 25, Alkaline Phosphatase 79, Total Protein 7.5, Albumin 3.5 Assessment/Plan Assessment and Plan 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
[2018-09-08 05:05] VITALS: BP 142/87
[2018-09-08] MEDS: KCL 10 MEQ TAB (MICRO K) PO SCH (07:19)
[2018-09-08] MEDS: HYDROcodone/APAP 10 MG/325 MG (LORTAB) TAB PO PRN (08:52)
[2018-09-08] MEDS: IBUPROFEN TABLET 200 MG TAB PO PRN (09:48)
[2018-09-08] MEDS: RT-ALBUTEROL/IPRATROPIUM 3 ML (DUONEB) VIAL INH SCH ×2 (09:53→18:41)
--- NOTE | 2018-09-08 10:57 | Occupational Ther Daily Note ---
OT Current Status-Daily Note Subjective Pt stated that he was in pain in shoulders, left writs, and left ankle. Thought that he wasn't having any therapy today. Does not report pain level. Nurse notified of pain. Appearance Pt was supine in bed when OT entered room. Alert and somewhat reluctant to work with OT, but then agreed. Mental Status/Objective Patient Orientation: Person, Place, Situation Functional [place] Measure 0=Not Assessed/NA 4=Minimal Assistance 1=Total Assistance 5=Supervision or Setup 2=Maximal Assistance 6=Modified [place] 3=Moderate Assistance 7=Complete [place] ADL-Treatment Functional [place] Measure 0=Not Assessed/NA 4=Minimal Assistance 1=Total Assistance 5=Supervision or Setup 2=Maximal Assistance 6=Modified [place] 3=Moderate Assistance 7=Complete IndependenceIRFPAI Quality Coding Scale 6 Independent with activity with or without an assistive device 5 Patient requires set up or clean up by helper. Patient completes activity by themselves 4 Supervision or touching assist (CGA). [place] provide cues , steadying assist 3 The helper provides less than half the effort to complete the activity 2 The helper provides more than half the effort to complete the activity 1 Dependent. The helper does all the effort to complete an activity 7 Patient refused to complete or attempt activity 9 The patient did not perform the activity before the current illness or injury 88 Not attempted due to Medical conditions or safety concerns Grooming (FIM): 6 (Mod I to comb hair. Pt. is encouraged to do for self.) Bathing (FIM): 5 (Pt able to wash all body parts on EOB with setup. ) Shower/Bathe Self (QC): 4 Upper Body (FIM): 5 (Pt able to don and doff shirt with setup. ) Upper Body Dressing (QC): 5 Lower Body Dressing (FIM): 5 (Pt able to don and doff pants with setup. ) Lower Body Dressing (QC): 5 On/Off Footwear (QC): 5 Transfers (B, C, W/C) (FIM): 6 (Pt. is mod I with safety concerns. Pt. is able to transfer supine-sit, sit-stand, and ambulate with walker. Pt is also able to transfer sit-supine with Mod I using bedrails. At times, reports that his left ankle "hurts" and will be slightly impulsive with walker.) Other Treatment Pt transferred from supine to sit independently. Pt agreed to take a spongebath on EOB. Declines attempts to have him shower. Pt able to wash all parts. Pt able to dress with setup. OT rewrapped Pt's ankle due to pain with tres wrap per pt's request. Nursing is notified of all reports of pain. Pt ambulates with rolling walker with Mod I to therapy gym. Pt needs rest break due to pain in ankle. Pt participated in 15 minutes of armbike on mod resistance with several rest breaks. Pt complains of pain in shoulders and wrist. Pt moves to mat for use of heat on shoulders and lower back and gentle stretches. OT applies heat and Pt immediately refuses it's use. Heat is removed by OT. Pt wants to just roll over and relax, does not want to complete therapy session. However, then agrees to gentle stretches applied by OT. OT applied gentle PROM to bilateral shoulders, elbows, and wrists. Pt. states, "this feels good." Pt ambulates back to room with Mod I, and transfers to bed. Able to transfer sit-supine with Mod I. All needs were met. Education OT Patient Education: Correct positioning, Energy conservation, Exercise program, Modified ADL techniques, Progress toward Goal/Update tx plan, Purpose of tx/functional activities, Reviewed precautions, Rehab process, Transfer techniques Teaching Recipient: Patient Teaching Methods: Demonstration, Discussion Response to Teaching: Verbalize Understanding, Return Demonstration OT Short Term Goals Short Term Goals Time Frame: Sep 09, 2018 Eating(FIM): 5 Grooming(FIM): 5 Bathing(FIM): 4 Upper Body Dressing(FIM): 4 Lower Body Dressing(FIM): 3 Toileting(FIM): 4 Transfers (B,C,W/C) (FIM): 4 (et) Toilet/Commode Transfer(FIM): 4 Shower Transfer(FIM): 3 Additional Short Term Goals: 1-Demonstrate ADL Tasks, 2-Verbalize Understanding , 3-ImproveStrength/Ana 1=Demonstrate adherence to instructed precautions during ADL tasks. 2=Patient will verbalize/demonstrate understanding of assistive devices/ modifications for ADL. 3=Patient will improve strength/tolerance for activity to enable patient to perform ADL's. OT Usp Goals Usp Goals Time Frame: Sep 23, 2018 Eating (FIM): 6 Eating (QC): 6 Groomin Oral Hygiene (QC): 6 Bathing(FIM): 5 Shower/Bathe Self (QC): 4 Upper Body Dressing(FIM): 5 Upper Body Dressing (QC): 5 Lower Body Dressing(FIM): 4 Lower Body Dressing (QC): 4 On/Off Footwear (QC): 4 Toileting(FIM): 5 Toileting Hygiene (QC): 5 Transfers (B,C,W/C) (FIM): 6 Toilet/Commode Transfer(FIM): 6 Toilet/Commode Transfer (QC): 6 Shower Transfer(FIM): 5 Additional Goals: 1-Demonstrate ADL Tasks, 2-Verbalize Understanding, 3- ImproveStrength/Ana 1=Demonstrate adherence to instructed precautions during ADL tasks. 2=Patient will verbalize/demonstrate understanding of assistive devices/ modifications for ADL. 3=Patient will improve strength/tolerance for activity to enable patient to perform ADL's. OT Education/Plan Problem List/Assessment Assessment: Decreased Activ Tolerance, Decreased UE Strength, Impaired I ADL's Discharge Recommendations Plan/Recommendations: Continue POC Therapy D/C Recommendations: Home w/ Family Support, Scheduled Assistance Treatment Plan/Plan of Care Treatment,Training & Education: Yes Patient would benefit from OT for education, treatment and training to promote independence in ADL's, mobility, safety and/or upper extremity function for ADL' s. Plan of Care: ADL Retraining, Functional Mobility, Group Exercise/Act as Ind, UE Funct Exercise/Act Treatment Duration: Sep 23, 2018 Frequency: At least 5 of 7 days/Wk (IRF) Estimated Hrs Per Day: 1.5 hours per day Agreement: Yes Rehab Potential: Fair Time/GCodes Start Time: 08:15 Stop Time: 09:45 Total Time Billed (hr/min): 90 Billed Treatment Time 1, ADL x 30minutes, Ex [id number], FA x 45minutes JOSE CARLOS OCHOA OT Sep 08, 2018 10:57
--- NOTE | 2018-09-08 11:55 | Physical Therapy Daily Note ---
PT Daily Note-Current Subjective Pt. hesitant but eventually agrees to Rx. States he just doesnt feel well today and relates it to weather. States his left foot and ankle are most painful today but agrees to walking etc. Pt. does not rate pain Mental Status Patient Orientation: Person, Place, Time, Situation Transfers Functional [place] Measure 0=Not Assessed/NA 4=Minimal Assistance 1=Total Assistance 5=Supervision or Setup 2=Maximal Assistance 6=Modified [place] 3=Moderate Assistance 7=Complete IndependenceIRFPAI Quality Coding Scale 6 Independent with activity with or without an assistive device 5 Patient requires set up or clean up by helper. Patient completes activity by themselves 4 Supervision or touching assist (CGA). [place] provide cues , steadying assist 3 The helper provides less than half the effort to complete the activity 2 The helper provides more than half the effort to complete the activity 1 Dependent. The helper does all the effort to complete an activity 7 Patient refused to complete or attempt activity 9 The patient did not perform the activity before the current illness or injury 88 Not attempted due to Medical conditions or safety concerns Transfers (B, C, W/C) (FIM): 6 Scootin Rollin Roll Left to Right (QC): 5 Supine to/from Sit: 6 Sit to/from Stand: 6 Sit to Lying (QC): 5 Sit to Stand (QC): 5 Chair/Ohx-et-Vkzvz Xfer(QC): 5 Bed to/from Chair: 6 Car Transfer (QC): 5 pt. needed instruction on safe car entry exit Weight Bearing Right Lower Extremity: Right Full Weight Bearing Left Lower Extremity: Left Full Weight Bearing Gait Training Does the Patient Walk?: Yes Gait (FIM): 6 Distance (FIM): 3=150 ft (165x2) Walk 10 feet (QC): 5 Walk 50 ft with 2 Turns(QC): 5 Walk 150 ft (QC): 5 Walking 10ft/uneven surface-QC: 5 Gait Level of Assist: 6 Gait Persons Needed: 0 Gait Assistive Device: FWW Pt. walked to from gym , appeared dyspneic, O2 sats 88% for very short time recovering to 98% very quickly. Pt. walks quickly as if he is hurried so he can rest quickly Stair Training Stair Training: Handrails/: 1 handrail (both hands like home situation) Stairs (FIM): 5 #of Steps: 8 1 Step (curb) (QC): 5 4 Steps (QC): 5 Stairs: Pattern: Step to Level of Assist: 5 household exception Balance Picking up an Object (QC): 5 Exercises Supine Ex: Bridging, Ankle pumps, Quad Set, Rolling, Glut sets, Heel Slides, Short Arc Quads, Scooting, Straight leg raise, Hip abd/add Supine Reps: 15 Seated Therapy Exercises: Ankle pumps, Sit to stand, Long arc quads, Hip flexion Seated Reps: 12 sidelying clam shells bilat x 12 ea Assessment Current Status: Good Progress pt. states he is definitely stronger than when he got here PT Short Term Goals Short Term Goals Time Frame: Sep 02, 2018 Transfers (B,C,W/C) (FIM): 4 (et) Gait (FIM): 4 (met) Distance (FIM): 3=150 ft Gait Assistive Device: FWW Wheelchair Distance: 150'x2 PT Metallurgical Engineering Teacher Goals Custodial Goals PT Metallurgical Engineering Teacher Goals Time Frame: Sep 11, 2018 Transfers (B,C,W/C) (FIM): 7 Sit to Lying (QC): 6 Lying-Sitting on Side/Bed(QC): 6 Sit to Stand (QC): 6 Rollin Roll Left to Right (QC): 6 Chair/Sdo-vh-Unmsj Xfer(QC): 6 Car Transfer (QC): 6 Does the Patient Walk: Yes Gait (FIM): 6 Gait distance (FIM): 3=150 ft Walk 10 feet (QC): 6 Walk 10ft-Uneven Surface(QC): 6 Walk 50ft with 2 Turns (QC): 6 Walk 150 ft (QC): 6 Gait Assistive Device: FWW Does the Pt use WC or Scooter?: No Stairs (FIM): 5 # of Steps: 4 1 Step (curb) (QC): 6 4 Steps (QC): 6 12 Steps (QC): 88 Picking up an Object (QC): 4 PT Plan Treatment/Plan Treatment Plan: Continue Plan of Care Treatment Plan: Bed Mobility, Education, Functional Activity Ana, Functional Strength, Group Therapy, Gait, Safety, Therapeutic Exercise, Transfers Treatment Duration: Sep 11, 2018 Frequency: At least 5 of 7 days/Wk (IRF) Estimated Hrs Per Day: 1.5 hours per day Patient and/or Family Agrees t: Yes Safety Risks/Education Patient Education: Gait Training, Transfer Techniques, Steps, Correct Positioning, Disease Process, Safety Issues Teaching Recipient: Patient Teaching Methods: Demonstration, Discussion Response to Teaching: Verbalize Understanding, Return Demonstration, Reinforcement Needed Time/GCodes Time In: 1030 Time Out: 1200 Total Billed Treatment Time: 90 Total Billed Treatment 1,FA30m,GT30m,EX30m G Codes Necessary: No ANH HEWITT GYROSCOPIC INSTRUMENT MECHANIC Sep 08, 2018 11:55
--- NOTE | 2018-09-08 14:41 | PM & R (SOAP) Progress Note ---
Subjective This was a face to face visit with the patient. Date Seen by Provider: Sep 08, 2018 Time Seen by Provider: 14:20 Subjective/Events-last exam Patient was seen in his room this afternoon Discussed case with RN Patient without BM for several days but patient not concerned and declining laxative.Patient with gallagher out and doing his home ICP for neurogenic urinary retention.Patient Modified Independent for transfers. Review of Systems Gastrointestinal: Constipation Objective Physician Exam Last Set of Vital Signs Vital Signs Date Time Temp Pulse Resp B/P (MAP) Pulse Ox O2 Delivery O2 Flow Rate FiO2 09/08/18 09:53 94 Room Air 09/08/18 05:05 98.1 77 18 142/87 (105) Capillary Refill : I&O Intake and Output 09/08/18 00:00 Intake Total 1142 ml Output Total 2050 ml Balance -908 ml Intake Oral 1142 ml Output Urine Total 2050 ml General: Alert, Oriented X3, Cooperative, No Acute Distress HEENT: Atraumatic, PERRLA, EOMI, Mucous Memb Moist/[place] Neck: Supple, No JVD Lungs: Clear to Auscultation Heart: Regular Rate Abdomen: Normal Bowel Sounds, Soft, No Tenderness, Other (Abdomen somewhat distended but non tender and BS s are present) Extremities: No Edema Skin: Other (MASD of the perineal area) Neuro: Other (BL limbs strength 3+5 Sensation intact Strength Both Upper limbs 4/5 Cognition intact) Psych/Mental Status: Mental Status NL Results Lab Data Laboratory Tests 09/07/18 05:20: White Blood Count 7.2, Red Blood Count 3.72L, Hemoglobin 12.4L, Hematocrit 38L, Mean Corpuscular Volume 101H, Mean Corpuscular Hemoglobin 33, Mean Corpuscular Hemoglobin Concent 33, Red Cell Distribution Width 13.4, Platelet Count 377, Mean Platelet Volume 9.0, Neutrophils (%) (Auto) 73, Lymphocytes (%) (Auto) 16, Monocytes (%) (Auto) 7, Eosinophils (%) (Auto) 3, Basophils (%) (Auto) 1, Neutrophils # (Auto) 5.3, Lymphocytes # (Auto) 1.2, Monocytes # (Auto) 0.5, Eosinophils # (Auto) 0.2, Basophils # (Auto) 0.1, Sodium Level 136, Potassium Level 4.3, Chloride Level 106, Carbon Dioxide Level 20L, Anion Gap 10, Blood Urea Nitrogen 20H, Creatinine 1.05, Estimat Glomerular Filtration Rate > 60, BUN /Creatinine Ratio 19, Glucose Level 111H, Calcium Level 9.6, Corrected Calcium 10.0, Total Bilirubin 0.4, Aspartate Amino Transf (AST/SGOT) 22, Alanine Aminotransferase (ALT/SGPT) 25, Alkaline Phosphatase 79, Total Protein 7.5, Albumin 3.5 Assessment/Plan Assessment and Plan 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
[2018-09-08 17:13] VITALS: BP 150/83
[2018-09-08] MEDS ORDERED: HYDR-4196 PO (17:23)
[2018-09-09 05:22] VITALS: BP 111/85
[2018-09-09] MEDS: KCL 10 MEQ TAB (MICRO K) PO SCH (06:01)
[2018-09-09] MEDS: RT-ALBUTEROL/IPRATROPIUM 3 ML (DUONEB) VIAL INH SCH (06:40)
--- NOTE | 2018-09-09 09:03 | Therapy Team Discharge Summary ---
Therapy Discharge Summary Discharge Recommendations Date of Discharge Therapy D/C Recommendations: Home w/ Family Support, Scheduled Assistance Physical Therapy Patient came to rehab with UTI and sepsis. Upon evaluation patient performed bed mobility with min assist, supine <-> sit with mod assist, sit to stand with mod assist, transfers with min assist, car transfer min assist, ambulated 125' with a rolling walker with CGA (including 50' with at least 2 turns of 90 degrees and 10' over an uneven surface), and went up and down 1 step using a rolling walker with CGA/[place]. Patient has been performing bed mobility and transfer training, balance and endurance training, gait training, functional strengthening, stair training, and education. Patient has made good progress and has met all of his [facility]p goals. Now, patient performs bed mobility and transfers with mod I, ambulates 165' with a rolling walker with mod I ( including 50' with at least 2 turns of 90 degrees and 10' over an uneven surface ), and can go up and down 8 steps using 1 handrail with SBA. Patient is discharging from this facility today and will be discharged from PT at this time. Occupational Therapy Decreased Activ Tolerance, Decreased UE Strength, Impaired Cognition, Impaired I ADL's PT Retirement Goals Executive Admin Goals PT Executive Admin Goals Time Frame: Sep 11, 2018 Transfers (B,C,W/C) (FIM): 7 Roll Left to Right (QC): 6 Sit to Lying (QC): 6 Lying-Sitting on Side/Bed(QC): 6 Sit to Stand (QC): 6 Chair/Uxd-yx-Lcchr Xfer(QC): 6 Car Transfer (QC): 6 Does the Patient Walk: Yes Gait (FIM): 6 Gait distance (FIM): 3=150 ft Walk 10 feet (QC): 6 Walk 10ft-Uneven Surface(QC): 6 Walk 50ft with 2 Turns (QC): 6 Walk 150 ft (QC): 6 Gait Assistive Device: FWW Does the Pt use WC or Scooter?: No Stairs (FIM): 5 # of Steps: 4 1 Step (curb) (QC): 6 4 Steps (QC): 6 12 Steps (QC): 88 Picking up an Object (QC): 4 OT Executive Admin Goals Retirement Goals Time Frame: Sep 23, 2018 Eating (FIM): 6 Eating (QC): 6 Oral Hygiene (QC): 6 Grooming(FIM): 6 Bathing(FIM): 5 Shower/Bathe Self (QC): 4 Upper Body Dressing(FIM): 5 Upper Body Dressing (QC): 5 Lower Body Dressing(FIM): 4 Lower Body Dressing (QC): 4 On/Off Footwear (QC): 4 Toileting(FIM): 5 Toileting Hygiene (QC): 5 Transfers (B,C,W/C) (FIM): 6 Toilet/Commode Transfer(FIM): 6 Toilet/Commode Transfer (QC): 6 Shower Transfer(FIM): 5 Additional Goals: 1-Demonstrate ADL Tasks, 2-Verbalize Understanding, 3- ImproveStrength/Ana 1=Demonstrate adherence to instructed precautions during ADL tasks. 2=Patient will verbalize/demonstrate understanding of assistive devices/ modifications for ADL. 3=Patient will improve strength/tolerance for activity to enable patient to perform ADL's. Speech Executive Admin Goals Retirement Goals No LTGs established as pt does not require skilled ST BEKAH MALONE PT Sep 09, 2018 09:03
--- NOTE | 2018-09-09 09:08 | Physical Therapy Daily Note ---
PT Daily Note-Current Transfers Functional [place] Measure 0=Not Assessed/NA 4=Minimal Assistance 1=Total Assistance 5=Supervision or Setup 2=Maximal Assistance 6=Modified [place] 3=Moderate Assistance 7=Complete IndependenceIRFPAI Quality Coding Scale 6 Independent with activity with or without an assistive device 5 Patient requires set up or clean up by helper. Patient completes activity by themselves 4 Supervision or touching assist (CGA). [place] provide cues , steadying assist 3 The helper provides less than half the effort to complete the activity 2 The helper provides more than half the effort to complete the activity 1 Dependent. The helper does all the effort to complete an activity 7 Patient refused to complete or attempt activity 9 The patient did not perform the activity before the current illness or injury 88 Not attempted due to Medical conditions or safety concerns Weight Bearing Right Lower Extremity: Right Full Weight Bearing Left Lower Extremity: Left Full Weight Bearing PT Short Term Goals Short Term Goals Time Frame: Sep 02, 2018 Transfers (B,C,W/C) (FIM): 4 (met) Gait (FIM): 4 (met) Distance (FIM): 3=150 ft Gait Assistive Device: FWW Wheelchair Distance: 150'x2 PT Sequins Slinger Goals Sequins Slinger Goals PT Sequins Slinger Goals Time Frame: Sep 11, 2018 Transfers (B,C,W/C) (FIM): 7 Sit to Lying (QC): 6 Lying-Sitting on Side/Bed(QC): 6 Sit to Stand (QC): 6 Rollin Roll Left to Right (QC): 6 Chair/Aov-te-Jcgum Xfer(QC): 6 Car Transfer (QC): 6 Does the Patient Walk: Yes Gait (FIM): 6 Gait distance (FIM): 3=150 ft Walk 10 feet (QC): 6 Walk 10ft-Uneven Surface(QC): 6 Walk 50ft with 2 Turns (QC): 6 Walk 150 ft (QC): 6 Gait Assistive Device: FWW Does the Pt use WC or Scooter?: No Stairs (FIM): 5 # of Steps: 4 1 Step (curb) (QC): 6 4 Steps (QC): 6 12 Steps (QC): 88 Picking up an Object (QC): 4 PT Plan Treatment/Plan Treatment Plan: Bed Mobility, Education, Functional Activity Ana, Functional Strength, Group Therapy, Gait, Safety, Therapeutic Exercise, Transfers Treatment Duration: Sep 11, 2018 Frequency: At least 5 of 7 days/Wk (IRF) Estimated Hrs Per Day: 1.5 hours per day Patient and/or Family Agrees t: Yes KEITH PAREKH PT Sep 09, 2018 09:08
--- NOTE | 2018-09-09 10:00 | PM & R (SOAP) Progress Note ---
Subjective This was a face to face visit with the patient. Date Seen by Provider: Sep 09, 2018 Time Seen by Provider: 09:30 Subjective/Events-last exam Patient was seen in his room this AM All set for discharge today patient has declined [facility] Objective Physician Exam Last Set of Vital Signs Vital Signs Date Time Temp Pulse Resp B/P (MAP) Pulse Ox O2 Delivery O2 Flow Rate FiO2 09/09/18 08:45 Room Air 09/09/18 05:22 98.4 87 16 111/85 (94) 92 Capillary Refill : I&O Intake and Output 09/09/18 00:00 Intake Total 1580 ml Output Total 2175 ml Balance -595 ml Intake Oral 1580 ml Output Urine Total 2175 ml General: Alert, Oriented X3, Cooperative, No Acute Distress HEENT: Atraumatic, PERRLA, EOMI, Mucous Memb Moist/[place] Neck: Supple, No JVD Lungs: Clear to Auscultation Heart: Regular Rate Abdomen: Normal Bowel Sounds, Soft, No Tenderness, Other (Abdomen somewhat distended but non tender and BS s are present) Extremities: No Edema Skin: Other (MASD of the perineal area) Neuro: Other (BL limbs strength 3+5 Sensation intact Strength Both Upper limbs 4/5 Cognition intact) Psych/Mental Status: Mental Status NL Results Lab Data Laboratory Tests 09/07/18 05:20: White Blood Count 7.2, Red Blood Count 3.72L, Hemoglobin 12.4L, Hematocrit 38L, Mean Corpuscular Volume 101H, Mean Corpuscular Hemoglobin 33, Mean Corpuscular Hemoglobin Concent 33, Red Cell Distribution Width 13.4, Platelet Count 377, Mean Platelet Volume 9.0, Neutrophils (%) (Auto) 73, Lymphocytes (%) (Auto) 16, Monocytes (%) (Auto) 7, Eosinophils (%) (Auto) 3, Basophils (%) (Auto) 1, Neutrophils # (Auto) 5.3, Lymphocytes # (Auto) 1.2, Monocytes # (Auto) 0.5, Eosinophils # (Auto) 0.2, Basophils # (Auto) 0.1, Sodium Level 136, Potassium Level 4.3, Chloride Level 106, Carbon Dioxide Level 20L, Anion Gap 10, Blood Urea Nitrogen 20H, Creatinine 1.05, Estimat Glomerular Filtration Rate > 60, BUN /Creatinine Ratio 19, Glucose Level 111H, Calcium Level 9.6, Corrected Calcium 10.0, Total Bilirubin 0.4, Aspartate Amino Transf (AST/SGOT) 22, Alanine Aminotransferase (ALT/SGPT) 25, Alkaline Phosphatase 79, Total Protein 7.5, Albumin 3.5 Assessment/Plan Assessment and Plan Home today with friend F/U with PCP DR Frye See orders Current meds reviewed Co-Morbidities that are continuing to impact the rehab process: (include details ) PATRIA YAP MD Sep 09, 2018 10:00
--- NOTE | 2018-09-09 15:45 | Therapy Team Discharge Summary ---
Therapy Discharge Summary Discharge Recommendations Date of Discharge Sep 09, 2018 at 13:45 Therapy D/C Recommendations: Home w/ Family Support, Scheduled Assistance Occupational Therapy Pt. seen by occupational therapy to increase overall strength and independence with daily tasks. Pt. made progress in all areas. Pt. is able to ambulate with Mod I with walker with safety concerns. Declined showering with OT but did spongebathe with set up assist. Pt. able to dress self with set up. Pt. is discharging home with assistance from a good friend. Recommend pt. use walker for safety. Decreased Activ Tolerance, Decreased UE Strength, Impaired Cognition, Impaired I ADL's PT Fpc Goals Fpc Goals PT Transfer Specialist Goals Time Frame: Sep 11, 2018 Transfers (B,C,W/C) (FIM): 7 Roll Left to Right (QC): 6 Sit to Lying (QC): 6 Lying-Sitting on Side/Bed(QC): 6 Sit to Stand (QC): 6 Chair/Tdg-su-Mican Xfer(QC): 6 Car Transfer (QC): 6 Does the Patient Walk: Yes Gait (FIM): 6 Gait distance (FIM): 3=150 ft Walk 10 feet (QC): 6 Walk 10ft-Uneven Surface(QC): 6 Walk 50ft with 2 Turns (QC): 6 Walk 150 ft (QC): 6 Gait Assistive Device: FWW Does the Pt use WC or Scooter?: No Stairs (FIM): 5 # of Steps: 4 1 Step (curb) (QC): 6 4 Steps (QC): 6 12 Steps (QC): 88 Picking up an Object (QC): 4 OT Transfer Specialist Goals Fpc Goals Time Frame: Sep 23, 2018 Eating (FIM): 6 (met) Eating (QC): 6 (met) Oral Hygiene (QC): 6 (not met. Pt. refused to brush teeth.) Grooming(FIM): 6 (not met) Bathing(FIM): 5 (met) Shower/Bathe Self (QC): 4 (met) Upper Body Dressing(FIM): 5 (met) Upper Body Dressing (QC): 5 (met) Lower Body Dressing(FIM): 4 (met) Lower Body Dressing (QC): 4 (met) On/Off Footwear (QC): 4 (met) Toileting(FIM): 5 (met) Toileting Hygiene (QC): 5 (met) Transfers (B,C,W/C) (FIM): 6 (met) Toilet/Commode Transfer(FIM): 6 (met) Toilet/Commode Transfer (QC): 6 (met) Shower Transfer(FIM): 5 (not met) Additional Goals: 1-Demonstrate ADL Tasks, 2-Verbalize Understanding, 3- ImproveStrength/Ana 1=Demonstrate adherence to instructed precautions during ADL tasks. 2=Patient will verbalize/demonstrate understanding of assistive devices/ modifications for ADL. 3=Patient will improve strength/tolerance for activity to enable patient to perform ADL's. Speech Fpc Goals Fpc Goals No LTGs established as pt does not require skilled ST JOSE CARLOS OCHOA OT Sep 09, 2018 15:45
== END 2018-09-09 13:45 | disposition home or self-care (01) | DRG 93 ==
PROVIDERS: ADMIT Physical Medicine & Rehabilitation; ATTEND Physical Medicine & Rehabilitation
DX: G72.89 Other specified myopathies (principal); N31.9 Neuromuscular dysfunction of bladder, unspecified; R32 Unspecified urinary incontinence; L89.899 Pressure ulcer of other site, unspecified stage; J44.9 Chronic obstructive pulmonary disease, unspecified; F10.10 Alcohol abuse, uncomplicated; M54.9 Dorsalgia, unspecified; E87.6 Hypokalemia; Z79.01 Long term (current) use of anticoagulants; Z87.891 Personal history of nicotine dependence
CPT/HCPCS: 36415; 80053; 85025; 94640; 94760

== ENCOUNTER 2021-08-27 13:19 | Observation (INO) | payer MEDICARE ==
[~2021-08-27] VITALS: Ht 162.6 cm; Wt 59.3 kg
--- OUTSIDE RECORDS SUMMARY | 2021-08-27 13:25 | XMS REPORT | Clinical Summary ---
Author Author [facility] Organization [facility] Address Unknown Phone Unavailable Care Team Providers Care Supply Technician Name Role Phone Eder Frye MD PCP Unavailable Able, Veronica Alba DO Unavailable Silvana Hidalgo MD Unavailable Unavailable Source Comments Some departments are not documenting in the electronic medical record. If you d o not see the information that you expected, contact Release of Information in [facility] Information Management department at [phone] for further assistan ce in locating additional records.[facility] Allergies Comments Active Allergy Reactions Severity Noted Date Iodine SEE COMMENTS 09/30/2013 Medications End Date Status Medication Sig Dispensed Refills Start Date Active budesonide/formoterol Inhale 2 0 (SYMBICORT) 160/4.5 mcg Puffs by HFAA inhalation mouth twice daily. Active acetaminophen (TYLENOL) Take 325 mg 0 325 mg tablet by mouth every 6 hours as needed. Active vitamins, multiple tablet Take 1 Tab by 0 mouth daily. Active vitamins, multi B, C, Zn Take 1 Tab by 30 Tab 1 & folate (Renal) mouth daily. 3 (NEPHPLEX RX) 1-60-300-12.5 [id number]-jp-tbp-mg tab Active amLODIPine (NORVASC) 5 mg Take 1 Tab by 30 Tab 1 tablet mouth daily. 3 Active folic acid (FOLVITE) 1 mg Take 1 Tab by 30 Tab 1 tablet mouth daily. 3 Active ipratropium (ATROVENT) Inhale 2.5 mL 100 Ampule 1 1 0.02 % nebulizer solution by mouth 3 every 4 hours as needed (wheezing). Active predniSONE (DELTASONE) 10 Starting 0 12/0 6/201 mg tablet 10/15/13 take 3 20 mg daily for 2 days, followed by 10 mg daily for 3 days, followed by 5 mg daily for 3 days, then stop. Active thiamine (VITAMIN B-1) Take 1 Tab by 30 Tab 1 1 100 mg tablet mouth daily. 3 Active lidocaine (LIDODERM) 5 % Apply to 30 Patch 0 1 topical patch lower back 3 Active ergocalciferol (vitamin Take 6.25 mL 1 Bottle 3 1 D-2) (CALCIFEROL) 8,000 by mouth 3 unit/mL oral solution every 7 days. Active Problems Problem Noted Date CKD (chronic kidney disease) 10/14/2013 Compression fracture of lumbar vertebra 10/14/2013 Anemia of chronic disease 10/14/2013 Encephalopathy 10/03/2013 Thrombocytopenia 10/03/2013 Bacteremia 10/03/2013 Protein malnutrition 10/03/2013 Hypokalemia 10/03/2013 Hypocalcemia 10/03/2013 Rhabdomyolysis 10/01/2013 Acute renal failure 09/30/2013 Alcohol withdrawal 09/30/2013 Immunizations Name Administration Dates Next Due Flu Vaccine Trivalent =>3 10/14/2013 Yo (Preservative Free) Pneumococcal Vaccine 10/14/2013 (23-Cheli Adult) Medical History Medical History Date Comments COPD (chronic obstructive pulmonary disease) (HCC) Alcoholism (HCC) HTN (hypertension) HLD (hyperlipidemia) IBS (irritable bowel syndrome) LBP (low back pain) Social History Date Tobacco Use Types Packs/Day Years Used Quit: 11/09/1987 Former Smoker Cigarettes Comments Alcohol Use Standard Drinks/Week Yes 0 (1 standard drink = 0.6 o z pure alcohol) Sex Assigned at Date Recorded Not on file Last Filed Vital Signs Reading Time Taken Comments Vital Sign 111/71 10/14/2013 2:33 PM [facility] Blood Pressure 89 10/14/2013 2:33 PM [facility] Pulse 36.9 C (98.5 F) 10/14/2013 12:45 PM [facility] Temperature - - Respiratory Rate 99% 10/14/2013 12:31 PM [facility] Oxygen Saturation - - Inhaled Oxygen Concentration 72.6 kg (160 lb) 10/14/2013 3:00 AM [facility] Weight 170.2 cm (5' 7") 10/11/2013 2:10 PM [facility] Height 25.06 10/11/2013 2:10 PM [facility] Body Mass Index Plan of Treatment Health Maintenance Due Date Last Done Comments MEDICARE ANNUAL WELLNESS 1940 VISIT DTAP/TDAP VACCINES (1 - 1959 Tdap) HEPATITIS C SCREENING 1959 PHYSICAL (COMPREHENSIVE) 1959 EXAM SHINGLES RECOMBINANT 1991 VACCINE (1 of 2) INFLUENZA VACCINE 06/09/2021 10/14/2013 PNEUMONIA (PPSV23) Completed 10/14/2013 VACCINE Results Not on filefrom Last 3 Months Insurance Type Payer Benefit Subscriber ID Effective Phone Address Plan / Dates Group Medicare MEDICARE MEDICARE [id number] 2006- PART A AND Present B Medicaid [employer] [place] [employer] [id number] 2013 STATE -Present HEALTH Advance Directives Patient Hide Salter Explanation Type Date Recorded Advance 09/30/2013 8:24 PM Directive/DPOA Date Inactivated Comments Code Status Date Activated 10/14/2013 6:22 PM Full Code 09/30/2013 9:20 PM Provider has discussed Code Status No, more discussi on w/Patient or Family? needed
[2021-08-27] MEDS ORDERED: NS IV 1000 ML 1,000 ML IV SCH ×3 (13:45→19:00)
--- NOTE | 2021-08-27 13:49 | ED General ---
General Stated Complaint: ABD PAIN,WEAKNESS History of Present Illness Date Seen by Provider: Aug 27, 2021 Time Seen by Provider: 13:20 Initial Comments 80 year old male presents from EMS, 4 days lying in bed. Friend (Jd Fitch) has been coming multiple times a day, to assist with his care. He noted a "sore" to his right hip, no falls or injuries but he likes to lie on that side. Patient of [facility], but hasn't been there since February 2020 and hasn't refilled his Enalapril since February 2021. EMS reports temp of 95 and SaO2 in 50s, applied O2 at 6 L per NC and improved to 88-91%. Patient is alert and answers all questions, denies having family to assist with his care. Complains of abdominal pain and right hip pain, no other complaints. Drinks Whiskey, daily that is dilluted with water. He was inpatient here for similar symptoms in 2018, then went to a LTC and back to [facility] [place]. Spoke to Jd, his friend and caregiver, he is not the POA. He is unaware of patient obtaining legal paperwork to name a POA. He was but his has not been in his life since 2018. Patient reports he does not wish to have CPR or assistance breathing, if he were to have a cardiac event or respiratory distress. Timing/Duration: 4-5 Days, Getting Worse (DAMIÁN STYLES) Allergies and Home Medications Allergies Coded Allergies: iodine (Verified Allergy, Unknown, 03/24/07) Patient Home Medication List Home Medication List Reviewed: Yes (DAMIÁN STYLES) Hydrocodone/Acetaminophen ([place] 10-325 Tablet) 1 Each Tablet, 1 TAB PO Q4H PRN for PAIN-MODERATE Prescribed by: PATRIA YAP on 09/08/18 1723 Ibuprofen (Advil) 200 Mg Tablet, 200-400 MG PO Q6H PRN for PAIN-MILD, (Reported) Entered as Reported by: ALCIDES CHAPIN on 08/25/18 0944 Review of Systems Review of Systems Constitutional: see HPI, chills, weakness EENTM: see HPI, no symptoms reported Respiratory: see HPI, short of breath Cardiovascular: no symptoms reported, see HPI Gastrointestinal: no symptoms reported, see HPI Skin: see HPI, other (ulcer right hip) (DAMIÁN STYLES) All Other Systems Reviewed Negative Unless Noted: Yes (DAMIÁN STYLES JEROME) Past Urzgqdx-Yfectg-Qwkhdn Hx Patient Social History Alcohol Use?: Yes Alcohol type: Hard Liquor Alcohol Frequency: Daily (STEPHANIDAMIÁN) Past Medical History Surgeries: Yes Orthopedic Respiratory: Yes COPD Cardiac: Yes Hypertension Neurological: No Reproductive Disorders: No Genitourinary: Yes Neurogenic Bladder Gastrointestinal: Yes Irritable Bowel Musculoskeletal: Yes Chronic Back Pain Endocrine: No HEENT: No Cancer: No Psychosocial: Yes (Alcoholism) Integumentary: No Recent Skin Changes Blood Disorders: No (STEPHANIDAMIÁN) Family Medical History Reviewed Nursing Family Hx (STEPHANIDAMIÁN CANO) Family history: Hypertension 03 FATHER 03 MOTHER Stroke 03 MOTHER Hypertension (DAMIÁN STYLES) Physical Exam Vital Signs Vital Signs - First Documented 08/27/21 13:20 Temp 35.4 Pulse 108 Resp 32 B/P (MAP) 109/77 (88) Pulse Ox 95 O2 Delivery Nasal Cannula O2 Flow Rate 6.00 (EPIFANIO DAMON MD) Vital Signs Capillary Refill : (STEPHANIDAMIÁN CANO) Height, Weight, BMI Height: 5'7.00" Weight: 154lbs. 1.0oz. 69.266821xe; 24.1 BMI Method:Estimated General Appearance: Cachetic, Moderate Distress, Thin Neck: Full Range of Motion, Normal Inspection, Non Tender, Supple Respiratory: Lungs Clear, Accessory Muscle Use, Decreased Breath Sounds Cardiovascular: No Edema, Tachycardia Gastrointestinal: Normal Bowel Sounds, Soft; No Mass; Tenderness (generalized ) Back: Normal Inspection, No CVA Tenderness, No Vertebral Tenderness Extremity: Normal Range of Motion, Non Tender, No Pedal Edema, Slow Capillary Refill Neurologic/Psychiatric: Alert, Normal Mood/Affect Skin: Cool, Mottled (extremeties), Other (stage 2 ulcer right hip) (DAMIÁN STYLES) Focused Exam Lactate Level 08/27/21 14:07: Lactic Acid Level 5.30*H 08/27/21 16:10: Lactic Acid Level 3.35*H (EPIFANIO DAMON MD) Respiratory: Chest Non Tender, Decreased Breath Sounds Cardiovascular: No Edema, Irregularly Irregular, Tachycardia Capillary Refill: Greater Than 3 Seconds Skin: mottled; No rash; ulcerations (right hip) (DAMIÁN STYLES) Lactic Acid Level Laboratory Tests Test 08/27/21 14:07 08/27/21 16:10 Lactic Acid Level 5.30 MMOL/L (0.50-2.00) *H 3.35 MMOL/L (0.50-2.00) *H (EPIFANIO DAMON MD) Within 3hrs of presentation: Admin fluids, Admin 30ml/kg IBW due to BMI>30, Admin ABX, Blood cultures prior to ABX's, Focus exam, Lactate level (DAMIÁN STYLES) Progress/Results/Core Measures Suspected Sepsis Recent Fever Within 48 Hours: No Infection Criteria Present: Suspected New Infection New/Unexplained Altered Menta: No Within 3hrs of presentation: Admin fluids, Admin 30ml/kg IBW due to BMI>30, Admin ABX, Blood cultures prior to ABX's, Focus exam, Lactate level SIRS Temperature: Pulse: Respiratory Rate: Laboratory Tests 08/27/21 13:30: White Blood Count 21.7H Blood Pressure / Mean: 08/27/21 14:07: Lactic Acid Level 5.30*H 08/27/21 16:10: Lactic Acid Level 3.35*H Laboratory Tests 08/27/21 13:30: Creatinine 4.70H, INR Comment 1.2, Platelet Count 303, Total Bilirubin 1.2H (DAMIÁN STYLES) Results/Orders Lab Results Laboratory Tests Test 08/27/21 13:30 08/27/21 13:45 08/27/21 13:55 08/27/21 14:07 Range/Units White Blood Count 21.7 H 4.3-11.0 10^3/uL Red Blood Count 3.81 L 4.30-5.52 10^6/uL Hemoglobin 12.4 L 13.3-17.7 g/dL Hematocrit 38 L 40-54 % Mean Corpuscular Volume 98 80-99 fL Mean Corpuscular Hemoglobin 33 25-34 pg Mean Corpuscular Hemoglobin Concent 33 32-36 g/dL Red Cell Distribution Width 13.9 10.0-14.5 % Platelet Count 303 130-400 10^3/uL Mean Platelet Volume 10.6 9.0-12.2 fL Immature Granulocyte % (Auto) 1 % Neutrophils (%) (Auto) 94 H 42-75 % Lymphocytes (%) (Auto) 1 L 12-44 % Monocytes (%) (Auto) 3 0-12 % Eosinophils (%) (Auto) 0 0-10 % Basophils (%) (Auto) 0 0-10 % Neutrophils # (Auto) 20.4 H 1.8-7.8 10^3/uL Lymphocytes # (Auto) 0.3 L 1.0-4.0 10^3/uL Monocytes # (Auto) 0.7 0.0-1.0 10^3/uL Eosinophils # (Auto) 0.0 0.0-0.3 10^3/uL Basophils # (Auto) 0.1 0.0-0.1 10^3/uL Immature Granulocyte # (Auto) 0.1 0.0-0.1 10^3/uL Neutrophils % (Manual) 94 % Lymphocytes % (Manual) 1 % Monocytes % (Manual) 3 % Band Neutrophils 2 % Blood Morphology Comment NORMAL Prothrombin Time 15.5 H 12.2-14.7 SEC INR Comment 1.2 0.8-1.4 Activated Partial Thromboplast Time 32 24-35 SEC Sodium Level 128 L 135-145 MMOL/L Potassium Level 5.0 3.6-5.0 MMOL/L Chloride Level 93 L 98-107 MMOL/L Carbon Dioxide Level 11 L 21-32 MMOL/L Anion Gap 24 H 5-14 MMOL/L Blood Urea Nitrogen 124 *H 7-18 MG/DL Creatinine 4.70 H 0.60-1.30 MG/DL Estimat Glomerular Filtration Rate 12 BUN/Creatinine Ratio 27 Glucose Level 394 H 70-105 MG/DL Calcium Level 10.4 H 8.5-10.1 MG/DL Corrected Calcium 11.1 H 8.5-10.1 MG/DL Total Bilirubin 1.2 H 0.1-1.0 MG/DL Aspartate Amino Transf (AST/SGOT) 11 5-34 U/L Alanine Aminotransferase (ALT/SGPT) 11 0-55 U/L Alkaline Phosphatase 206 H 40-136 U/L Total Protein 8.4 H 6.4-8.2 GM/DL Albumin 3.1 L 3.2-4.5 GM/DL Serum Alcohol < 10 <10 MG/DL Urine Color DARK YELLOW Urine Clarity TURBID Urine pH 8.0 5-9 Urine Specific [place] 1.010 L 1.016-1.022 Urine Protein 2+ H NEGATIVE Urine Glucose (UA) NEGATIVE NEGATIVE Urine Ketones TRACE H NEGATIVE Urine Nitrite NEGATIVE NEGATIVE Urine Bilirubin 3+ H NEGATIVE Urine Urobilinogen 1 < = 1.0 MG/DL Urine Leukocyte Esterase 3+ H NEGATIVE Urine RBC (Auto) 3+ H NEGATIVE Urine RBC 25-50 H /HPF Urine WBC >100 H /HPF Urine Crystals PRESENT H /LPF Urine Amorphous Sediment LARGE HAKAN PHOSPHATE H /LPF Urine Bacteria LARGE H /HPF Urine Casts NONE /LPF Urine Mucus NEGATIVE /LPF Urine Culture Indicated CULTURE PENDING Urine Opiates Screen NEGATIVE NEGATIVE Urine Oxycodone Screen NEGATIVE NEGATIVE Urine Methadone Screen NEGATIVE NEGATIVE Urine Propoxyphene Screen NEGATIVE NEGATIVE Urine Barbiturates Screen NEGATIVE NEGATIVE Ur Tricyclic Antidepressants Screen NEGATIVE NEGATIVE Urine Phencyclidine Screen NEGATIVE NEGATIVE Urine Amphetamines Screen NEGATIVE NEGATIVE Urine Methamphetamines Screen NEGATIVE NEGATIVE Urine Benzodiazepines Screen NEGATIVE NEGATIVE Urine Cocaine Screen NEGATIVE NEGATIVE Urine Cannabinoids Screen NEGATIVE NEGATIVE Lactic Acid Level 5.30 *H 0.50-2.00 MMOL/L Test 08/27/21 14:30 08/27/21 14:58 08/27/21 15:03 08/27/21 15:50 Range/Units Total Creatine Kinase 20 L 30-200 U/L Creatine Kinase MB 0.9 <6.6 NG/ML Myoglobin 283.4 H 10.0-92.0 NG/ML Blood Gas Puncture Site R RADIAL Blood Gas Patient Temperature 36.6 Arterial Blood pH 7.36 L 7.37-7.43 Arterial Blood Partial Pressure CO2 22 L 35-45 MMHG Arterial Blood Partial Pressure O2 213 H 79-93 MMHG Arterial Blood HCO3 12 *L 23-27 MMOL/L Arterial Blood Total CO2 12.6 L 21.0-31.0 MMOL/L Arterial Blood Oxygen Saturation 99 94-100 % Arterial Blood Base Excess -12.7 L -2.5-2.5 MMOL/L Yoan Test YES-POS Blood Gas Ventilator Setting NO Blood Gas Inspired Oxygen 6 L Glucometer 275 H 70-110 MG/DL Influenza Type A (RT-PCR) Not Detected Not Detecte Influenza Type B (RT-PCR) Not Detected Not Detecte SARS-CoV-2 RNA (RT-PCR) Not Detected Not Detecte Test 08/27/21 16:10 Range/Units Lactic Acid Level 3.35 *H 0.50-2.00 MMOL/L (BRUEGGEMANN,EPIFANIO T MD) Vital Signs/I&O 08/27/21 08/27/21 13:20 13:20 Temp 35.4 Pulse 108 Resp 32 B/P (MAP) 109/77 (88) Pulse Ox 95 O2 Delivery Nasal Cannula Nasal Cannula O2 Flow Rate 6.00 6.00 08/28/21 00:00 Intake Total 1210 ml Balance 1210 ml (EPIFANIO DAMON MD) Vital Signs/I&O Capillary Refill : (DAMIÁN STYLES) Progress Note : Time: 13:20 Progress Note Patient seen and evaluated, some of his history obtained from Jd by phone call. Reports patient has a nephew in [place], [place] and cousin in [place], but those are the only family he is awared of. Warm blankets and warmed IV fluids. No history of diabetes or elevated glucose on previous appts. Spoke to [facility], no appointments since February 2020. They do not have any family listed. Will obtain labs, chest x-ray, and pelvis/right hip x-ray. 1400 Rectal temp 37.1. Patient taking water, no other requests. 1430 Maintaining SaO2 90% on 3 L NC. No requests at this time. 1500 Reviewed labs with patient, discussed options in care, as he would require dialysis for treatment and that is not an option at this facility. He has no family to discuss this with. Called Jd per patient request, he will come here to discuss options. Patient requesting diane britney, will order. 1600 Jd here, discussed admitting to a facility with dialysis, LTC, Hospice and home care. Patient understands he is critical and recovery is guarded. Will give Ativan 0.5 mg IV for tremors. Patient refusing to wear oxygen. 1630 Patient would like to return home with hospice, will call [facility]. 1715 spoke to Princess at [facility], they can admit the patient to [facility] tomorrow morning. They would not have medications for treating patient tonight. Patient agreeable to overnight on Comfort Care here, then returning home. Requesting pain medication for right hip ulcer discomfort and generalized pain. Morphine 2 mg IV for pain. [address] Cool, agreeable to admit for comfort care. Notified Julián Dominique RN she will assist with Hospice referral tomorrow. Notified GEOVANI Echevarria, he is PCP for patient. 1829 patient has remained stable but guarded, SaO2 88-90% on O2 NC 3 L. No requests, pain controlled and tremors improved. (DAMIÁN STYLES) Diagnostic Imaging Diagonstic Imaging: Xray Plain Films/CT/US/NM/MRI: pelvis, hip Comments NAME: ALVARADO BECERRIL [facility] REC#: [id number] PT STATUS: REG ER : 1941 PHYSICIAN: DAMIÁN STYLES ADMIT DATE: 08/27/21/ER Draft Date of Exam:08/27/21 PELVIS WITH RIGHT HIP 2-3VIEWS INDICATION: Bed sores, right hip pain. COMPARISON: 01/06/2014. FINDINGS: Single view of the pelvis and two views of the right hip demonstrate symmetric degenerative joint disease. There is no acute fracture, dislocation, or radiographic evidence of osteomyelitis. IMPRESSION: Degenerative joint disease without fracture or radiographic evidence of osteomyelitis. Dictated on workstation # [id number] Dict: 08/27/21 1505 Trans: 08/27/21 1508 [id number] Interpreted by: MARY JO PRATT Electronically signed by: Diagonstic Imaging: Xray Plain Films/CT/US/NM/MRI: chest Comments NAME: ALVARADO BECERRIL [facility] REC#: [id number] PT STATUS: REG ER : 1941 PHYSICIAN: DAMIÁN STYLES ADMIT DATE: 08/27/21/ER Signed Date of Exam:08/27/21 CHEST 1 VIEW, AP/PA ONLY INDICATION: Sepsis COMPARISON: 01/06/2014. FINDINGS: Frontal view of the chest demonstrates clear lungs bilaterally. The heart size is normal. There is no pneumothorax. Osseous structures are normal. IMPRESSION: No acute findings. Normal chest. Dictated by: Dictated on workstation # [id number] Dict: 08/27/21 1505 Trans: 08/27/21 1505 [facility] [id number] Interpreted by: MARY JO PRATT Electronically signed by: MARY JO PRATT 08/27/21 1505 Reviewed: Reviewed by Me (DAMIÁN STYLES) Departure Impression Primary Impression: Malnutrition Qualified Codes: E46 - Unspecified protein-calorie malnutrition Additional Impressions: Pressure ulcer of right hip, stage 2 Alcohol abuse Kidney failure Qualified Codes: N17.9 - Acute kidney failure, unspecified; N18.9 - Chronic kidney disease, unspecified Rhabdomyolysis Qualified Codes: M62.82 - Rhabdomyolysis Hyperglycemia Disposition: ADMITTED INPATIENT Condition: Critical ATTENDING PHYSICIAN NOTE: I was physically present as attending physician in the emergency department during the care of this patient, but I was not directly involved in the decision making or delivery of care for this patient. (EPIFANIO DAMON MD) Copy Copies To 1: LES RUBALCAVA AMY ARNP Aug 27, 2021 13:49 EPIFANIO DAMON MD Aug 28, 2021 06:42
[2021-08-27 13:50] LABS: BASOPHILS # (AUTO) 0.1 10^3/uL (0.0-0.1); BASOPHILS % (AUTO) 0 % (0-10); EOSINOPHILS % (AUTO) 0 % (0-10); HEMATOCRIT 38 % (40-54); HEMOGLOBIN 12.4 g/dL (13.3-17.7); LYMPHOCYTES # (AUTO) 0.3 10^3/uL (1.0-4.0); LYMPHOCYTES % (AUTO) 1 % (12-44); MEAN CORPUSCULAR HEMOGLOBIN 33 pg (25-34); MEAN CORPUSCULAR HGB CONC 33 g/dL (32-36); MEAN CORPUSCULAR VOLUME 98 fL (80-99); MEAN PLATELET VOLUME 10.6 fL (9.0-12.2); MONOCYTES # (AUTO) 0.7 10^3/uL (0.0-1.0); MONOCYTES % (AUTO) 3 % (0-12); NEUTROPHILS # (AUTO) 20.4 10^3/uL (1.8-7.8); NEUTROPHILS % (AUTO) 94 % (42-75); PLATELET COUNT 303 10^3/uL (130-400); WHITE BLOOD COUNT 21.7 10^3/uL (4.3-11.0)
[2021-08-27 13:56] LABS: ALBUMIN 3.1 GM/DL (3.2-4.5)
[2021-08-27 13:57] LABS: CALCIUM 10.4 MG/DL (8.5-10.1)
[2021-08-27 13:59] LABS: TOTAL PROTEIN 8.4 GM/DL (6.4-8.2)
[2021-08-27 14:00] LABS: BILIRUBIN,TOTAL 1.2 MG/DL (0.1-1.0)
[2021-08-27 14:02] LABS: CREATININE SERUM 4.7 MG/DL (0.60-1.30)
[2021-08-27 14:05] LABS: INR 1.2 (0.8-1.4); PROTHROMBIN TIME PATIENT 15.5 SEC (12.2-14.7)
[2021-08-27 14:25] LABS: CLARITY,URINE TURBID; COLOR,URINE DARK YELLOW
[2021-08-27 14:26] LABS: BILIRUBIN,URINE 3+ (NEGATIVE); GLUCOSE, URINE (UA) NEGATIVE (NEGATIVE); KETONES,URINE TRACE (NEGATIVE); NITRITE,URINE NEGATIVE (NEGATIVE); PROTEIN,URINE 2+ (NEGATIVE)
[2021-08-27 14:27] LABS: LEUKOCYTE ESTERASE ,URINE 3+ (NEGATIVE)
[2021-08-27 14:28] LABS: BACTERIA,URINE LARGE /HPF; RBC,URINE 25-50 /HPF; WBC,URINE >100 /HPF
[2021-08-27 14:29] LABS: AMORPHOUS SEDIMENT,UR LARGE AMOR PHOSPHATE /LPF
[2021-08-27 14:37] LABS: BAND NEUTROPHILS 2 %; LYMPHOCYTES % (MANUAL) 1 %; MONOCYTES % (MANUAL) 3 %; NEUTROPHILS % (MANUAL) 94 %; RBC MORPH NORMAL
--- NOTE | 2021-08-27 15:07 | Diagnostic Imaging Report ---
INDICATION: Sepsis COMPARISON: 01/06/2014. FINDINGS: Frontal view of the chest demonstrates clear lungs bilaterally. The heart size is normal. There is no pneumothorax. Osseous structures are normal. IMPRESSION: No acute findings. Normal chest. Dictated by: Dictated on workstation # [id number]
[2021-08-27 15:08] LABS: CREATINE KINASE MB 0.9 NG/ML (<6.6)
--- NOTE | 2021-08-27 15:09 | Diagnostic Imaging Report ---
INDICATION: Bed sores, right hip pain. COMPARISON: 01/06/2014. FINDINGS: Single view of the pelvis and two views of the right hip demonstrate symmetric degenerative joint disease. There is no acute fracture, dislocation, or radiographic evidence of osteomyelitis. IMPRESSION: Degenerative joint disease without fracture or radiographic evidence of osteomyelitis. Dictated by: Dictated on workstation # [id number]
[2021-08-27 15:11] LABS: ABG BASE EXCESS -12.7 MMOL/L (-2.5-2.5); ABG OXYGEN SATURATION 99 % (94-100); ABG PCO2 22 MMHG (35-45); ABG PH 7.36 (7.37-7.43); ABG PO2 213 MMHG (79-93); ABG TCO2 12.6 MMOL/L (21.0-31.0)
[2021-08-27 15:14] LABS: AMPHETAMINE SCREEN, URINE NEGATIVE (NEGATIVE); BARBITURATE SCREEN URINE NEGATIVE (NEGATIVE); BENZODIAZEPINES SCREEN URINE NEGATIVE (NEGATIVE); CANNABINOID SCREEN, URINE NEGATIVE (NEGATIVE); COCAINE SCREEN URINE NEGATIVE (NEGATIVE); METHADONE STAT NEGATIVE (NEGATIVE); METHAMPHETAMINE SCREEN URINE S NEGATIVE (NEGATIVE); OPIATE SCREEN URINE NEGATIVE (NEGATIVE); OXYCODONE STAT NEGATIVE (NEGATIVE); PROPOXYPHENE STAT NEGATIVE (NEGATIVE); TRICYCLIC ANTIDEPRESSANTS SCRE NEGATIVE (NEGATIVE)
[2021-08-27 15:15] LABS: ALLENS TEST YES-POS; INSPIRED O2 6 L; PATIENT TEMP 36.6; VENTILATOR NO
[2021-08-27] MEDS ORDERED: ONDANSETRON 4 MG/2 ML (SDV) Z0FRAN IVP ONE (16:15)
[2021-08-27] MEDS ORDERED: cefTRIAXone 1,000 MG in WATER (STERILE) FOR INJECTION 10 ML IV ONE (16:30)
[2021-08-27] MEDS ORDERED: LORazepam INJ 2 MG/ML (ATIVAN) VIAL IVP STA (16:48)
[2021-08-27] MEDS ORDERED: morphine INJ 10 MG/ML 1ML (SYR OR VIAL) IVP STA (17:54)
[2021-08-27 18:20] VITALS: BP 72/53
[2021-08-27] MEDS ORDERED: ACETAMINOPHEN 325 MG TABLET PO PRN (19:00)
[2021-08-27] MEDS ORDERED: ONDANSETRON 4 MG/2 ML (SDV) Z0FRAN IVP PRN (22:00)
[2021-08-27] MEDS: morphine INJ 4 MG/ML 1 ML (VIAL/SYRINGE) IVP PRN (23:18)
[2021-08-28] MEDS: LORazepam INJ 2 MG/ML (ATIVAN) VIAL IVP PRN ×3 (06:03→15:14)
[2021-08-28] MEDS: morphine INJ 4 MG/ML 1 ML (VIAL/SYRINGE) IVP PRN ×2 (08:04→19:54)
--- NOTE | 2021-08-28 13:08 | History & Physical-Hospitalist ---
JANECARLOS EDUARDO MED STUDENT 08/28/21 1307: History of Present Illness HPI/Chief Complaint CC: AMS HPI: Pt was admitted from hospice for AMS. History per ED and nurse due to pt's inability to provide history. His friend Jd noticed changes in pt's mental status beginning 4-5 days ago, and he also noticed a new ulceration on the R lateral hip. Pt was admitted from ED for palliative care. He received a dose of Ativan prior to exam and is incoherent at time of exam. He appears able to understand what is being said, but his responses are unintelligible. He indicates that he is having pain in his abd and R hip area. Source: EMS notes reviewed Exam Limitations: clinical condition (pt is awake, arousable to voice, incoherent) Date Seen 08/28/21 Time Seen by a Provider: 07:45 Attending Physician Melony Cool DO [facility] Referring Physician Date of Admission Aug 27, 2021 at 17:50 Home Medications & Allergies Home Medications Reviewed patient Home Medication Reconciliation performed by pharmacy medication reconciliations auto transmission technician and/or nursing. Patients Allergies have been reviewed. Allergies Allergies Coded Allergies iodine (Verified Allergy, Unknown, 03/24/07) Past Hwyzigr-Tvysjx-Mhexbv Hx Patient Social History Marrital Status: Tobacco Use?: Yes Smoking Status: Former Smoker Use of E-Cig and/or Vaping dev: No Substance use?: Unable to obtain Alcohol Use?: Yes Alcohol type: Hard Liquor Additional alcohol type: WHISKEY Alcohol Frequency: Daily Pt feels they are or have been: Unable to obtain Immunizations Up To Date Date of Influenza Vaccine: Aug 25, 2018 Date of Pneumonia Vaccine: Sep 09, 2012 Current Status Advance Directives: Unable to obtain Communicates: Unable To Communicate Primary Language: Malian Preferred Spoken Language: Malian Past Medical History Surgeries: Orthopedic COPD Hypertension Neurogenic Bladder Irritable Bowel Chronic Back Pain Recent Skin Changes Blood Disorders: No Family Medical History Reviewed Nursing Family Hx Family history: Hypertension 03 FATHER 03 MOTHER Stroke 03 MOTHER Hypertension Review of Systems ROS-Unable to Obtain: Unable to obtain, pt is unable to respond appropriately Physical Exam Physical Exam Vital Signs Vital Signs - First Documented 08/27/21 13:20 Temp 35.4 Pulse 108 Resp 32 B/P (MAP) 109/77 (88) Pulse Ox 95 O2 Delivery Nasal Cannula O2 Flow Rate 6.00 Capillary Refill : Greater Than 3 Seconds Height, Weight, BMI Height: 5'7.00" Weight: 154lbs. 1.0oz. 69.232559aq; 22.42 BMI Method:Estimated General Appearance: Chronically ill, Cachetic, Moderate Distress, Thin Neck: Non Tender, Supple Respiratory: Chest Non Tender, Lungs Clear, Normal Breath Sounds, Other (tachypneic(26-34), CTAB with diminished bases) Cardiovascular: No Edema, No JVD, Normal Peripheral Pulses, Tachycardia (100- 110's) Gastrointestinal: Normal Bowel Sounds, Soft; No Distended; Tenderness (tender to palpation) Rectal: Deferred Back: Normal Inspection, No CVA Tenderness, No Vertebral Tenderness Extremity: Normal Capillary Refill, Normal Inspection, Non Tender, No Calf Tenderness, No Pedal Edema Neurologic/Psychiatric: Other (awake, lethargic, arousable to voice, generalized tremors) Skin: Warm/Dry, Other (area of ulceration/erythema to R lateral hip with necrotic/sloughed tissue overlying ulcer) Lymphatic: No Adenopathy Comments Limited exam due to pt AMS Results Results/Procedures Labs Laboratory Tests 08/27/21 13:30 Patient resulted labs reviewed. Assessment/Plan Admission Diagnosis AMS, UTI, Sepsis, ARF Admission Status: Observation Assessment and Plan UTI/Sepsis/R hip ulcer Comfort care Pain/nausea/agitation management Working with SS/Palliative care nurse for hospice placement Alcohol withdrawal Ativan gina COOLMELONY DO 08/29/21 0545: History of Present Illness HPI/Chief Complaint Chief complaint: End-of-life care History of present illness: This is a 80-year-old white male alcoholic who presented to the ER with altered mental status patient was deemed comfort care he did not want to go to dialysis so he was placed on comfort care protocol. Source: RN/MD Past Uvmtrdd-Zeitsm-Jgmcun Hx Patient Social History Smoking Status: Unknown if Ever Smoked Alcohol Use?: Yes Family Medical History Family history: Hypertension 03 FATHER 03 MOTHER Stroke 03 MOTHER Review of Systems Constitutional: see HPI Physical Exam Physical Exam General Appearance: No Apparent Distress, Chronically ill, Thin, Other (Comatose) Respiratory: Decreased Breath Sounds Cardiovascular: Regular Rate, Rhythm Assessment/Plan Admission Diagnosis End-of-life care Admission Status: Observation Supervisory-Addendum Brief Verification & Attestation Participated in pt care: history, MDM, physical Personally performed: exam, history, MDM, supervision of care Care discussed with: Medical Student Procedures: n/a Results interpretation: Verified all documentation Verification and Attestation of Medical Student E/M Service A medical student performed and documented this service in my presence. I reviewed and verified all information documented by the medical student and made modifications to such information, when appropriate. I personally performed the physical exam and medical decision making. Melony Cool, Aug 29, 2021,05:45 CARLOS EDUARDO LARA MED STUDENT Aug 28, 2021 13:07 MELONY COOL DO Aug 29, 2021 05:45
--- NOTE | 2021-08-29 05:46 | Discharge Summary ---
Discharge Summary Hospital Course Was the Problem List Reviewed?: Yes Problems/Dx: (1) Kidney failure Status: Acute Qualifiers: Qualified Codes: N17.9 - Acute kidney failure, unspecified; N18.9 - Chronic kidney disease, unspecified Hospital Course Date of Admission: Aug 27, 2021 at 17:50 Admission Diagnosis : Family Physician/Provider: Julián Rice Date of Discharge: 08/29/21 Discharge Diagnosis: Multisystem organ failure, kidney failure, alcoholism Hospital Course: Short course after admitted placed on comfort care he . Labs and Pending Lab Test: Microbiology 08/27/21 Blood Culture - Preliminary, Resulted No growth 08/27/21 Urine Culture - Preliminary, Resulted Proteus vulgaris Klebsiella oxytoca Home Meds Active No Active Prescriptions or Reported Medications Assessment/Pt Instructions Discharge Planning: <30 minutes discharge planning Discharge Physical Examination Vital Signs Vital Signs Date Time Temp Pulse Resp B/P (MAP) Pulse Ox O2 Delivery O2 Flow Rate FiO2 08/28/21 20:24 35.4 08/28/21 20:00 95 Room Air 08/28/21 10:00 2.00 08/27/21 18:20 95 26 72/53 Allergies: Coded Allergies: iodine (Verified Allergy, Unknown, 03/24/07) Discharge Summary Date of Admission Aug 27, 2021 at 17:50 Date of Discharge Admission Diagnosis End-of-life care MERCEDES BRAFDORD DO Aug 29, 2021 05:46
== END 2021-08-29 04:45 | disposition expired ==
LOC: EDUNIT# 13:19 → ER 13:21 → 4TH 17:50 → UNDOADMOB 17:50 → 4TH 18:34 → UNDODISOB 08-29 04:45
PROVIDERS: ADMIT Internal Medicine; ATTEND Internal Medicine
DX: N17.9 Acute kidney failure, unspecified (principal); J44.9 Chronic obstructive pulmonary disease, unspecified; I12.9 Hypertensive chronic kidney disease with stage 1 through stage 4 chronic kidney disease, or unspecified chronic kidney disease; G89.29 Other chronic pain; M54.9 Dorsalgia, unspecified; E46 Unspecified protein-calorie malnutrition; N18.9 Chronic kidney disease, unspecified; E11.65 Type 2 diabetes mellitus with hyperglycemia; E11.22 Type 2 diabetes mellitus with diabetic chronic kidney disease; M62.82 Rhabdomyolysis; L89.212 Pressure ulcer of right hip, stage 2; K58.9 Irritable bowel syndrome, unspecified; F10.10 Alcohol abuse, uncomplicated; F17.210 Nicotine dependence, cigarettes, uncomplicated; Z79.899 Other long term (current) drug therapy; Z82.3 Family history of stroke
CPT/HCPCS: 36600; 71045; 73502; 80053; 80306; 81000; 82550; 82553; 82805; 82947; 83605; 83874; 85007; 85027; 85610; 85730; 87040; 87077; 87088; 87186; 87636; 94760; 99285; G0378; G0480; 36415; 80320; 96361; 96374; 96375